=== PATIENT | female | born 1945 | race Caucasian/White ===

== ENCOUNTER 2016-07-20 15:00 | Inpatient (IN) | payer MEDICARE ==
[2016-07-11 15:26] VITALS: BMI 35.2
[2016-08-03] MEDS ORDERED: ALVIMOPAN 12 MG CAPSULE PO ONE (05:00)
[2016-08-03] MEDS ORDERED: ceFAZolin 2 GM in SODIUM CHLORIDE 0.9% 100 ML IVPB ONE (05:00)
[2016-08-03] MEDS ORDERED: TRANEXAMIC ACID 1,000 MG in SODIUM CHLORIDE 0.9% 100 ML IVPB ONE ×4 (05:00)
[2016-08-03] MEDS ORDERED: ONDANSETRON 4 MG/2 ML VIAL IVP ONE (05:00)
[2016-08-03] MEDS ORDERED: ACETAMINOPHEN TAB 500 MG TAB PO ONE (05:00)
[2016-08-03] MEDS ORDERED: MELOXICAM 7.5 MG TAB PO ONE (05:00)
[2016-08-03] MEDS ORDERED: MIDAZOLAM 2 MG/2 ML VIAL IV PRN (05:33)
[2016-08-03] MEDS ORDERED: LACTATED RINGERS 1,000 ML IV SCH (05:33)
[2016-08-03] MEDS ORDERED: SCOPOLAMINE 1.5MG/72HR PATCH TRANSDERM ONE (05:33)
[2016-08-03] MEDS ORDERED: LIDOCAINE 1% 20 ML VIAL (10MG/ML) FOR IV START INTRADERMA PRN (05:33)
[2016-08-03] MEDS ORDERED: DEXAMETHASONE SOD PHOSPHATE 10 MG/ML 1 ML VIAL IV ONE (05:33)
[2016-08-03] MEDS ORDERED: HYDROmorphone 1 MG/ML 1 ML SYRINGE IVP PRN ×4 (05:33→15:33)
[2016-08-03 13:37] VITALS: RESP 16
[2016-08-03] MEDS: ROPIVACAINE 246.25 MG, EPINEPHrine 0.5 MG, KETOROLAC 30 MG, cloNIDine HCL/PF 80 MCG, WA... MISCELLANE ONE ×10 (14:46→17:08)
[2016-08-03] MEDS ORDERED: NA PHOS,M-B/NA PHOS,DI-BA 133 ML ENEMA RECTAL PRN (15:33)
[2016-08-03] MEDS ORDERED: BISACODYL 10 MG SUPP RECTAL PRN (15:33)
[2016-08-03] MEDS ORDERED: ACETAMINOPHEN TAB 325 MG TAB PO PRN (15:33)
[2016-08-03] MEDS ORDERED: DIAZEPAM 5 MG TAB PO PRN (15:33)
[2016-08-03] MEDS ORDERED: MAGNESIUM HYDROXIDE 2,400 MG/10 ML CUP PO PRN (15:33)
[2016-08-03] MEDS ORDERED: NALOXONE 0.4 MG/ML 1 ML VIAL IV PRN ×4 (15:33→19:35)
[2016-08-03] MEDS ORDERED: hydrOXYzine PAMOATE 25 MG CAP PO PRN (15:33)
[2016-08-03] MEDS ORDERED: ONDANSETRON 4 MG/2 ML VIAL IVP PRN (15:33)
[2016-08-03] MEDS ORDERED: HYDROcodone/APAP 7.5-325MG 1 EACH TAB PO PRN (15:33)
[2016-08-03] MEDS ORDERED: traMADol 50 MG TAB PO PRN (15:33)
[2016-08-03] MEDS ORDERED: TEMAZEPAM 15 MG CAP PO PRN (15:33)
[2016-08-03] MEDS ORDERED: TRANEXAMIC ACID 1,000 MG/10 ML VIAL ONE (15:37)
[2016-08-03] MEDS ORDERED: SODIUM CHLORIDE 0.9% 100 ML BAG ONE (15:37)
[2016-08-03] MEDS ORDERED: PHENYLEPHRINE-0.9% NACL SYG 1 MG/10 ML SYRINGE ONE (15:37)
[2016-08-03] MEDS ORDERED: MIDAZOLAM 2 MG/2 ML VIAL ONE (15:37)
[2016-08-03] MEDS ORDERED: LIDOCAINE 1% INJ 10MG/ML (20 ML MDV) ONE (15:37)
[2016-08-03] MEDS ORDERED: fentaNYL (PF) 50 MCG/ML 2 ML AMP ONE (15:37)
[2016-08-03] MEDS ORDERED: PROPOFOL 10 MG/ML 20 ML VIAL IV ONE (15:37)
[2016-08-03] MEDS ORDERED: ceFAZolin 3,000 MG in SODIUM CHLORIDE 0.9% IRRIGATIO 3,000 ML IRRIGATION ONE (16:20)
[2016-08-03] MEDS ORDERED: LACTATED RINGERS 1,000 ML IV ONE ×2 (16:21)
[2016-08-03] MEDS ORDERED: MORPHINE SULFATE 4 MG/ML SYRINGE IVP PRN ×5 (18:53→19:55)
[2016-08-03] MEDS ORDERED: PROMETHAZINE INJ 6.25 MG in SODIUM CHLORIDE 0.9% 50 ML IVPB PRN (18:53)
[2016-08-03] MEDS ORDERED: NALBUPHINE 10 MG/ML AMPUL IV PRN (18:53)
[2016-08-03] MEDS ORDERED: diphenhydrAMINE 50 MG/ML 1 ML VIAL IVP PRN (18:53)
[2016-08-03] MEDS ORDERED: METOCLOPRAMIDE 5 MG/ML 2 ML VIAL IVP PRN (18:53)
--- NOTE | 2016-08-03 19:07 | XR ---
EXAMINATION TYPE: XR knee limited RT DATE OF EXAM: 08/03/2016 6:48 PM COMPARISON: NONE HISTORY: Postop knee surgery TECHNIQUE: 2 views FINDINGS: There is a right knee prosthesis. Components appear in anatomic position. IMPRESSION: Right knee prosthesis without sign of a complicating process.
[2016-08-03] MEDS: LACTATED RINGERS 1,000 ML IV SCH ×2 (20:11→20:12)
[2016-08-03] MEDS: FOLIC ACID 1 MG TAB PO SCH (20:12)
[2016-08-03] MEDS: SENNOSIDES-DOCUSATE SODIUM 1 EACH TAB PO SCH (20:12)
[2016-08-03] MEDS: ASPIRIN 325 MG TAB PO SCH (20:13)
[2016-08-03] MEDS ORDERED: TOFACITINIB CITRATE 5 MG PO SCH (21:00)
[2016-08-03] MEDS ORDERED: LIFITEGRAST BOTH EYES SCH (21:00)
--- NOTE | 2016-08-03 22:50 | OP ---
DATE OF SERVICE: 08/03/2016 SURGEON: NITIN MCDOWELL MD CUSTOMER SALES ADVISOR: Tony Regalado PA-C PREOPERATIVE DIAGNOSIS: Right knee osteoarthrosis. POSTOPERATIVE DIAGNOSIS: Right knee osteoarthrosis. OPERATION: Right total knee arthroplasty. ANESTHESIA: Spinal with sedation. ESTIMATED BLOOD LOSS: 100 mL Tourniquet time: 50 minutes at 250 mmHg. COMPLICATIONS: None apparent. DRAINS: None. DISPOSITION: Postanesthesia care unit. SPECIMENS REMOVED: OPERATIVE FINDINGS: INDICATIONS: Alejandra is a 71-year-old female with long-standing history of right knee pain. History and physical examination are consistent with advanced right knee osteoarthrosis. She has been through significant nonoperative management up to this point. Further treatment options were discussed and she has decided to go forward with right total knee arthroplasty. The risks of the procedure were discussed with her in detail. These risks include, but are not limited to risk of infection, nerve damage, bleeding, pain, and a small risk of deep vein thrombosis, which could lead to fatal pulmonary embolism. There is also a risk of loosening of the implant, which could require revision operation. Patient understands these risks. All of her questions were answered to her satisfaction. Appropriate informed consent was obtained. DESCRIPTION OF THE PROCEDURE: The patient was identified in the preoperative holding area. Surgical site was marked by both the patient and myself. She was given 2 grams of Ancef IV for prophylactic purposes. She was then transferred to the operative suite where she was placed supine on the operating room table. A spinal anesthetic was then administered and dosed per the anesthesia department without apparent complication. Examination under anesthesia was then performed. Patient had full extension. She had 105 degrees of flexion, and medial collateral ligament, lateral collateral ligament and posterior cruciate ligaments were stable. Tourniquet was then placed high on the right upper thigh, well-padded in preparation for surgery. The patient's right lower extremity was then prepped and draped usual sterile fashion. Standard surgical pause was undertaken to ensure that were operating on the correct site and that appropriate preoperative antibiotics had been given. All staff in the room were in agreement and we proceeded. The outlines of the patella were then marked with a surgical pen. A planned 12 cm vertical incision centered over the patella was marked with a surgical pen. The leg was then exsanguinated with an Esmarch dressing. The knee was then flexed and tourniquet inflated to 250 mmHg. The total tourniquet time for the procedure was 50 minutes. Incision was then made with a 10 blade scalpel. Dissection was carried down sharply to the overlying fascia. Great care was taken to minimize the skin flaps. The knee was then exposed using a standard medial parapatellar approach. Small cuff of quadriceps tendon was left for suturing. She was in a mild amount of valgus preoperatively. Very minimal medial release was then made. This was done just to allow for placement of the retractors. The medial meniscus was then excised as well. The lateral meniscus was also released anteriorly. The leg was then externally rotated. The patella was everted and the knee was flexed. Retractors were then placed to protect the collateral ligaments. I then proceeded to remove the infrapatellar fat pad. This was excised sharply tangentially with the fibers of the patellar tendon. I then proceeded to remove the peripheral osteophytes. This was done with a rongeur. I then proceeded with the distal femoral resection. She did have near full extension. A planned 9 mm resection was done. The femoral canal was then entered in the midline of the femur approximately 10 mm anterior to the origin of the posterior cruciate ligament. Redd was then advanced down the center of the femur and the redd placed intramedullary. Based on preoperative radiographs, the angle between the anatomic and mechanical axis of the femur was approximately 4 to 5 degrees the valgus angle of distal femoral cutting guide was then set at 4 degrees for the right knee. The distal femoral cutting guide was then advanced over the intramedullary redd. This was seated firmly against the femur. I then, as mentioned, planned to take 9 mm off the distal femur. The cutting block was then secured onto the femur with pins. The jig was then removed and the distal femoral cut was made through the slot of the block. The pins were then removed and the distal femoral cutting block was removed. The accuracy of the distal femoral cuts was checked with 2 flat bars. I then proceeded with femoral sizing. The posterior referencing sizing guide was held firmly against the resected distal surface of the femur. Posterior condyles were resting on the posterior plane of the guide. The sizing stylus was then placed onto the anterior femur. The size was measured at a size 60. I then assessed for femoral rotation. The plan was for 3 degrees of external rotation. 3 degrees of external rotation was placed onto the jig. These holes were then marked. I then confirmed the rotation by three separate methods. This was done by using the epicondylar axis as well as Whitesides lines and posterior referencing. It was deemed that the external rotation was proper. I then went forward with placing the femoral cutting block. This was placed over the previously placed pin holes. The angle wing was placed onto the anterior slots to make sure that we would not notch the anterior femur with the anterior femoral cut. I then proceed with the anterior femoral cut. This was flushed with the anterior cortex of the femur. Posterior cuts were then made, followed by the anterior chamfer cut and the posterior chamfer cut. The cutting block was them removed. Throughout the resection, the collateral ligaments were protected with retractors. I then placed a trial size 60 femur, fit very nice. Medial and lateral. Fit flush with the distal end of the femur. Drill holes were then made. I then proceed with the tibial cut. I planned for cruciate retaining knee. The guide was placed and set for varus valgus and for slope. The height was set for approximately 2 mm resection from the medial tibial plateau which was the lower side. I was happy with the alignment and the amount of resection. The cutting block was then pinned to the proximal tibia. The alignment redd was removed and the proximal tibia was resected with reciprocating saw. Again this was done with retractors protecting the collateral ligaments as well as posterior cruciate ligaments. I then proceeded to evaluate the flexion and extension gaps. A 10 mm block was placed. Flexion and extension gaps were equal. I the proceed with resection of the posterior osteophytes. She has very extensive posterior osteophytes. This was done using a curved osteotome. This resected the posterior osteophytes and posterior capsule stripping was also done off the posterior aspect of the femur. The osteophytes were then removed. I then proceeded with resection of the patella. The thickness of the patella was measured using the caliper. Thickness was 22 mm. The thickness of the anticipated patellar dome was taken into account. Resection was then performed and confirmed to be equal in 4 quadrants using the caliper. Approximately 14 mm of bone remained after the resection. A 28 x 8 standard patellar trial was then placed. The holes were then drilled and the trial then placed. I then proceeded with sizing the tibial plate. A size 63 tibial plate fit very nicely. I then placed a trial femur, tibial tray and patellar button. A 10 mm trial tibial insert was also placed. The components fit very nicely. She had full extension and flexion. Extension and flexion gaps were equal and stable to varus and valgus stress. The patella tracked appropriately. Tibial tray rotation was marked with a Bovie. This was externally rotated properly. I then proceeded with tibial preparation. I first drilled femoral holes and removed femoral component. The tibial tray was then set for proper external rotation as well as mediolateral placement onto the tibia. It was then pinned into place. I then proceeded with punching the keel. I then decided to proceed with cementing of all of our components. The knee was thoroughly irrigated with sterile saline solution via pulse lavage. The lateral geniculate artery was identified and cauterized. All blood was removed from the bone of the tibia, femur and patella with pulse lavage. I then proceeded with cementing it. 2 packs of antibiotic bone cement were prepared on the back table by the surgical instrument maker. I then proceeded with cementing of the tibia first. The cement was impacted into the keel as well as deeply seated into the bone. A second coat of cement was then placed. The tibia was then impacted into place. Excess cement was removed with Emmett's and jokers. I then proceeded with cementing of the femoral component. The femoral component was also cemented using standard technique. Excess cement was removed. A 10 mm trial insert was then placed into the knee. It was brought into full extension with a constant axial load placed until the cement had hardened. The patellar component was then cemented. This was held firmly with a compressive device until the cement had dried. When the cement had dried, the knee was taken out of extension. All excess cement was removed from around the prosthesis. I then trialed the knee with a 10 mm insert. Flexion-extension gaps felt very good. The knee was stable. It came into full extension. I decided to go forward with a 10 mm cross-linked cruciate-retaining tibial insert. Polyethylene was then placed onto the tibial tray and the pin locked. The knee was then reduced. The knee was again further irrigated with sterile saline solution with antibiotic added. The tourniquet was then deflated. Total tourniquet time for the procedure was 50 minutes at 250 mmHg. Final components were a Biomet Vanguard size 60 cruciate-retaining femoral component, a size 63 tibial tray, a 10 mm cruciate retaining polyethylene insert and a 28 x 8 mm patella. I then proceeded with closure. Again, the knee was thoroughly irrigated. The quadriceps tendon and the medial retinaculum were reapproximated with #2 Ethibond suture. The extensor mechanism was then closed with running #2 Quill suture. Subcutaneous tissues were then closed with 2-0 Vicryl interrupted suture. Skin was closed with a running 3-0 Quill suture. Dermabond was applied to the incision. Sterile compressive dressings were then applied. All sponge and needle counts were deemed correct prior to closure. The patient tolerated the procedure without apparent complication. She was transferred to recovery room in stable condition.
[2016-08-03] MEDS: ceFAZolin 2 GM in SODIUM CHLORIDE 0.9% 100 ML IVPB SCH (23:16)
[2016-08-04 07:49] LABS: Aty Lym Flag Moderate; CHCM 30.5; HDW 2.41; HGB 15.2 gm/dL (11.4-16.0); Hypochromasia Slight; MCH 32.1 pg (25.0-35.0); MCHC 30.5 g/dL (31.0-37.0); MCV 105.3 fL (80.0-100.0); Macrocytosis Moderate; Mean Platelet Volume 8.7; RBC 4.75 m/uL (3.80-5.40); RDW 15.3 % (11.5-15.5); WBC 9.8 k/uL (3.8-10.6); WBC (Perox) 9.46
[2016-08-04] MEDS: ceFAZolin 2 GM in SODIUM CHLORIDE 0.9% 100 ML IVPB SCH (08:13)
[2016-08-04] MEDS: PARoxetine 10 MG TAB PO SCH (08:14)
[2016-08-04] MEDS: ASPIRIN 325 MG TAB PO SCH ×2 (08:14→20:48)
[2016-08-04] MEDS ORDERED: amLODIPine 5 MG TAB PO SCH (09:00)
[2016-08-04] MEDS ORDERED: LOSARTAN 50 MG TAB PO SCH (09:00)
[2016-08-04 10:03] LABS: Add Differential Manual Differential
[2016-08-04 10:05] LABS: Manual Review Performed; Nucleated Red Blood Cells 0 /100 WBC (0-0); Total Cells Counted 100
--- NOTE | 2016-08-04 10:25 | P.PN ---
Progress Note - Text Date:08/04 Time:655 Patient is status post tkr. Patient seen this morning with VAS score of 0. c/o of pruritus, no c/o nausea/vomiting, comfortable and doing well.
[2016-08-04] MEDS: HYDROcodone/APAP 7.5-325MG 1 EACH TAB PO PRN ×2 (10:35→20:48)
[2016-08-04] MEDS ORDERED: METHOTREXATE SODIUM 2.5 MG TAB PO SCH (12:00)
[2016-08-04] MEDS: MULTIVITAMINS, THERA 1 EACH TAB PO SCH (12:23)
[2016-08-04] MEDS: FOLIC ACID 1 MG TAB PO SCH ×2 (12:24→16:54)
[2016-08-04] MEDS ORDERED: SODIUM CHLORIDE 0.9% 1,000 ML IV ONE (16:29)
--- NOTE | 2016-08-04 16:54 | CONS ---
REASON FOR CONSULTATION: Recommendations regarding antihypertensive medications and hypotension postoperatively. Patient is a very pleasant 71-year-old female who underwent right knee arthroplasty. Patient is clinically doing well. Denied any fever or chills. Patient denied any nausea, vomiting. Patient's blood pressure was minimally on the low-normal side, which is improving at this point of time. Patient denied any fever, chills. Patient denied any cough, runny nose, dysuria, abdominal pain. REVIEW OF SYSTEMS: CARDIOVASCULAR: No chest pain, no orthopnea, no PND, no palpitations. PULMONARY: Denied any shortness of breath. No cough or hemoptysis. GASTROINTESTINAL: No diarrhea, nausea or vomiting. No abdominal pain. Normoactive bowel sounds. NEUROLOGIC: No headaches, no weakness, no numbness. MUSCULOSKELETAL: Defer to orthopedic surgery. Patient's pain is well controlled at this point of time. All other systems were reviewed and were negative. PHYSICAL EXAMINATION: GENERAL: The patient is alert and oriented x3, not in any acute distress. Well developed, well nourished. HEENT: Pupils are round and equally reacting to light. EOMI. No scleral icterus. No conjunctival pallor. Normocephalic, atraumatic. No pharyngeal erythema. No thyromegaly. CARDIOVASCULAR: S1 and S2 present. No murmurs, rubs, or gallops. PULMONARY: Chest is clear to auscultation, no wheezing or crackles. ABDOMEN: Soft, nontender, nondistended, normoactive bowel sounds. No palpable organomegaly. MUSCULOSKELETAL: Defer to orthopedic surgery. EXTREMITIES: No cyanosis, clubbing, or pedal edema. NEUROLOGICAL: Gross neurological examination did not reveal any focal deficits. SKIN: No rashes. LABORATORY DATA: CBC was reviewed, has elevated hematocrit. SOCIAL HISTORY AND PAST MEDICAL HISTORY: significant for hypertension, osteoarthritis, rheumatoid arthritis, hypothyroidism, bariatric surgery in the past, breast cancer surgery, cholecystectomy, hernia repair, joint replacement surgery, tonsillectomy, tubal ligation surgery, gastric bypass surgery in the past. Patient used to smoke 1 pack per day, quit smoking in 1983. FAMILY HISTORY: Significant for cancer. ASSESSMENT AND PLAN: 1. Hypertension. The patient is actually hypotensive in the perioperative period. I will hold off antihypertensive medications. 2. Right knee arthroplasty. Pain management and deep venous thrombosis prophylaxis per Primary Service. 3. Depression. Continue with continue with paroxetine. 4. Patient has rheumatoid arthritis for which patient is on methotrexate, which can be continued. 5. Elevated hematocrit, probably due to intravascular volume depletion. Patient will be started on IV fluids, which will also help her with her blood pressure. I will start her on gentle hydration of 150 mL of normal saline. Thank you for letting me participate in this patient's care. Patient's primary care physician is Dr. Juan Cox. [facility]ITALIn[facility]
--- NOTE | 2016-08-04 17:46 | P.PN ---
Subjective Principal diagnosis: OA Right Knee Patient seen at bedside today. She is post op day #1 from total knee arthroplasty per Dr. Siddiqui. She has no new complaints. She has post op pain as expected at the surgical site. She denies numbness, tingling or calf pain. ROS is negative for fever, chills, chest pain, SOB or other. Objective - Vital Signs Vital signs: Vital Signs Temp 97.8 F 08/04/16 15:35 Pulse 67 08/04/16 15:59 Resp 16 08/04/16 15:53 BP 74/67 08/04/16 15:59 Pulse Ox 95 08/04/16 15:53 Intake & Output 08/03/16 08/04/16 08/04/16 18:59 06:59 18:59 Intake Total 1901 1590 Output Total 350 500 800 Balance 1551 1090 -800 Weight 81.647 kg Intake: IV 1901 1000 Lactated Ringers 1,000 ml 1000 @ 100 mls/hr IV .Q10H RUPERT Rx#:[id number] Oral 590 Output: Urine 250 500 800 Uretheral (Yee) 500 600 Estimated Blood Loss 100 Other: Voiding Method Indwelling Catheter Indwelling Catheter # Voids 2 - Exam Inspection of right lower extremity reveals a benign surgical wound. There is no active bleeding, drainage, or dehiscence. Neuro status intact with motor and sensation throughout the lower extremity. Calf is soft and nontender. 2+ pulses and less than 2 sec cap refill present. - Constitutional General appearance: Present: no acute distress - Psychiatric Psychiatric: Present: A&O x's 3, appropriate affect, intact judgment & insight - Labs CBC & Chem 7: 08/04/16 07:11 Labs: Abnormal Lab Results - Last 24 Hours (Table) 08/04/16 Range/Units 07:11 Hct 50.0 H (34.0-46.0) % MCV 105.3 H (80.0-100.0) fL MCHC 30.5 L (31.0-37.0) g/dL Plt Count 143 L (150-450) k/uL Assessment and Plan (1) Osteoarthritis of right knee Narrative/Plan: She will continue with routine postop orthopedic protocol including wound care, PT, pain management, DVT prophylaxis, and medical management. Expect discharge to home with home health in next 1-2 days. Status: Acute Time with Patient: Less than 30
[2016-08-04] MEDS: SENNOSIDES-DOCUSATE SODIUM 1 EACH TAB PO SCH (20:49)
[2016-08-04] MEDS: LACTATED RINGERS 1,000 ML IV SCH ×3 (20:51→21:27)
[2016-08-05] MEDS: LACTATED RINGERS 1,000 ML IV SCH ×2 (00:51→01:04)
[2016-08-05] MEDS: HYDROcodone/APAP 7.5-325MG 1 EACH TAB PO PRN ×3 (01:44→13:39)
[2016-08-05] MEDS: MULTIVITAMINS, THERA 1 EACH TAB PO SCH (07:18)
[2016-08-05] MEDS: PARoxetine 10 MG TAB PO SCH (07:18)
[2016-08-05] MEDS: FOLIC ACID 1 MG TAB PO SCH (07:18)
[2016-08-05] MEDS: ASPIRIN 325 MG TAB PO SCH (07:18)
[2016-08-05] MEDS ORDERED: OXYBUTYNIN XL 5 MG TAB.ER.24 PO SCH (09:00)
--- NOTE | 2016-08-05 09:25 | P.DS ---
Providers Date of admission: 08/03/16 12:28 Expected date of discharge: 08/05/16 Attending physician: Chacorta Siddiqui Consults: 08/03/16 15:33 Consult Physician Routine Consulting Provider: Rosanna Hamilton Consult Reason/Comments: post op medical management Do you want consulting provider notified?: Yes Primary care physician: Puja Cox - Discharge Diagnosis(es) (1) Osteoarthritis of right knee Patient was admitted to the OR on 08/03/2016 to undergo right total knee arthroplasty per Dr. Siddiqui. She had failed conservative measures as an outpatient and desired proceed after giving informed consent. She underwent the above procedure which she tolerated well without complication. Her postoperative hospital course has remained without complication. On day of discharge she is afebrile, vital signs stable, labs within acceptable ranges, wound is benign, neurovascular status is intact, abdomen soft nontender, calf is soft and nontender, denies any new complaints, tolerating by mouth meds and diet. Review of systems is negative for fever, chills, chest pain, shortness of breath, nausea, vomiting, numbness, tingling, abdominal pain, calf pain, headaches, rashes, bleeding, slurred speech or other. Current Visit: Yes Status: Acute Priority: Medium Procedures: Right total knee arthroplasty Patient Condition at Discharge: Good Plan - Discharge Summary New Discharge Prescriptions: Aspirin 325 mg PO BID #60 tab Docusate [Colace] 100 mg PO BID #60 capsule HYDROcodone/APAP 7.5-325MG [[place] 7.5-325] 1 - 2 each PO Q6HR PRN #90 tab PRN Reason: Pain Discharge Medication List Folic Acid 1 mg PO BID 11/18/14 [History] Losartan Potassium 100 mg PO QAM 11/18/14 [History] Methotrexate Sodium [Methotrexate] 20 mg PO FR 11/18/14 [History] PARoxetine HCL [Paxil] 10 mg PO DAILY 11/18/14 [History] Tofacitinib Citrate [Xeljanz] 5 mg PO BID 11/18/14 [History] Tolterodine ER [Detrol LA] 4 mg PO DAILY 11/18/14 [History] Lifitegrast [Xiidra] 1 dropper BOTH EYES BID 07/11/16 [History] [place]-3 Fatty Acids/Fish Oil [Fish Oil 1,000 mg Softgel] 1,000 mg PO DAILY 07/11 [History] amLODIPine [Norvasc] 5 mg PO DAILY 07/11/16 [History] traMADol HCL [Ultram] 50 mg PO Q6HR PRN 07/11/16 [History] Aspirin 325 mg PO BID #60 tab 08/05/16 [Rx] Docusate [Colace] 100 mg PO BID #60 capsule 08/05/16 [Rx] HYDROcodone/APAP 7.5-325MG [[place] 7.5-325] 1 - 2 each PO Q6HR PRN #90 tab [Rx] Follow up Appointment(s)/Referral(s): [facility], [NON-STAFF] - 1 Week Chacorta Siddiqui MD [STAFF PHYSICIAN] - 10 Days Activity/Diet/Wound Care/Special Instructions: Keep wound clean and dry Weight-bear as tolerated Follow up with Dr. Siddiqui in office, [phone] Take meds as directed Discharge Disposition: HOME WITH HOME HEALTH SERVICES
[2016-08-05 10:13] VITALS: BP 101/69; PULSE 64; TEMP 98.5
--- NOTE | 2016-08-05 14:59 | PN ---
The patient is admitted for right knee arthroplasty. Patient is being discharged today. Patient became hypotensive with blood pressure going down to as low as 70 and patient received boluses of IV fluids yesterday evening. Patient is on a couple antihypertensives, amlodipine and an ALESIA inhibitor. I recommend to hold these antihypertensives. I asked her to check the blood pressure at home, take it through Dr. Cox and decision regarding re-initiation of these medications can be made at the time. I counseled her regarding appropriate way blood pressure measurement. Patient's blood pressure today is 101/69. These medications were held yesterday. The patient is otherwise clinically doing well and patient is okay to be discharged from my perspective. Patient has a systolic murmur about, at least 3/6 severity, will need an echocardiogram as an outpatient. REVIEW OF SYSTEMS: CARDIOVASCULAR: No chest pain, no orthopnea, no PND, no palpitations. PULMONARY: Denied any shortness of breath. No cough or hemoptysis. GASTROINTESTINAL: No diarrhea, nausea or vomiting. No abdominal pain. Normoactive bowel sounds. NEUROLOGIC: No headaches, no weakness, no numbness. Medications were reviewed. PHYSICAL EXAMINATION: VITAL SIGNS: Temperature is 98.5, pulse of 64, respiratory rate of 16, blood pressure of 101/69, saturating at 96% on room air. GENERAL: The patient is alert and oriented x3, not in any acute distress. Well developed, well nourished. HEENT: Pupils are round and equally reacting to light. EOMI. No scleral icterus. No conjunctival pallor. Normocephalic, atraumatic. No pharyngeal erythema. No thyromegaly. CARDIOVASCULAR: S1 and S2 present. No murmurs, rubs, or gallops. PULMONARY: Chest is clear to auscultation, no wheezing or crackles. ABDOMEN: Soft, nontender, nondistended, normoactive bowel sounds. No palpable organomegaly. MUSCULOSKELETAL: No joint swelling or deformity. EXTREMITIES: No cyanosis, clubbing, or pedal edema. NEUROLOGICAL: Gross neurological examination did not reveal any focal deficits. SKIN: No rashes. ASSESSMENT AND PLAN: 1. Hypertension management, as mentioned above. 2. Right knee arthroplasty. Deep venous thrombosis prophylaxis and pain management as per primary service. 3. Depression. 4. Rheumatoid arthritis. PLAN: As mentioned in the interval history.
--- NOTE | 2016-10-05 15:17 | PN ---
ADDENDUM: DATE OF SERVICE: 08/05/2016 Patient was hypotensive, which is an expected outcome post surgery. This is not a complication of surgery. Once again, hypotension is an expected outcome post surgery and not a complication of the surgery.
--- NOTE | 2016-10-05 15:21 | CONS ---
ADDENDUM: DATE OF CONSULTATION: 08/04/2016 Patient was hypotensive, which is an expected outcome post surgery. This is not a complication of surgery. Once again, hypotension is an expected outcome post surgery and not a complication of the surgery.
== END 2016-08-05 13:50 | disposition home health service (06) | DRG 470 ==
LOC: 2ORMAIN 08-03 12:28 → 3SUR 08-03 18:13
PROVIDERS: ADMIT Orthopaedic Surgery Sports Medicine; ATTEND Orthopaedic Surgery Sports Medicine
PROC: 0SRC0J9 Replacement of Right Knee Joint with Synthetic Substitute, Cemented, Open Approach (ICD-10-PCS; principal; 2016-08-03 16:30)
DX: M17.11 Unilateral primary osteoarthritis, right knee (principal); I95.89 Other hypotension; E86.9 Volume depletion, unspecified; M06.9 Rheumatoid arthritis, unspecified; I10 Essential (primary) hypertension; F32.9 Major depressive disorder, single episode, unspecified; Z98.84 Bariatric surgery status; Z79.899 Other long term (current) drug therapy; Z87.891 Personal history of nicotine dependence
CPT/HCPCS: 85025

== ENCOUNTER → 2016-10-11 | Outpatient (CLI) | payer MEDICARE ==
--- NOTE | 2016-10-11 17:20 | BD ---
EXAMINATION TYPE: MG DEXA axial skeleton. DATE OF EXAM: 10/11/2016 11:02 AM COMPARISON: NONE CLINICAL HISTORY: 71-year-old female screening for osteoporosis Height: 4 FT 11 1/2 IN Weight: 182 FRAX RISK QUESTIONS: Alcohol (3 or more units per day): NO Family History (Parent hip fracture): NO Glucocorticoids (More than 3mos): YES (Ex: prednisone, prednisolone, methylprednisolone, dexamethasone, and hydrocortisone). History of Fracture in Adulthood: YES Secondary Osteoporosis: 1. Type 1 Diabetes: NO 2. Hyperthyroidism: NO 3. Menopause before 45: NO 4. Malnutrition: NO 5. Chronic liver disease: NO Rheumatoid Arthritis: YES Current Tobacco Use: NO RISK FACTORS HISTORY OF: History of Wrist Fracture: LT WRIST When: AGE 67 Family History of Osteoporosis: YES Active: YES Postmenopausal woman: AGE 49 Lost more than 2 inches in height since high school: YES MEDICATIONS: Additional Medications: METHOTREXATE, FOLIC ACID, ANTI DEPRESSANT, LOSARTIN, DETROL, ZELJANZ Additional History: EXAM MEASUREMENTS: Bone mineral densitometry was performed using the [employer] System. Bone mineral density as measured about the Lumbar spine is: ----- L1-L4(G/cm2): 1.109 T Score Values are as follows: ----- L2: -0.9 ----- L3: 0.3 ----- L4: 0.5 ----- L1-L4: -0.6 Bone mineral density has: Increased 23.3% since study of: 2003 Bone mineral density about the R hip (g/cm2): 0.606 Bone mineral density about the L hip (g/cm2): 0.659 T Score values are as follows: -----R Neck: -3.1 -----L Neck: -2.7 -----R Total: -3.0 -----L Total: -2.5 Bone mineral density has: Decreased -17.7% since study of: 2003 IMPRESSION: Osteoporosis as indicated by T score values in both hips. There is increased fracture risk and therapy is usually indicated based on age. Re-Screen 1-2 years. NOTE: T-SCORE=SD OF THE YOUNG ADULT MEAN.
== END | disposition home or self-care (01) ==
LOC: RADBDWWP 10:35
PROVIDERS: ATTEND Internal Medicine Rheumatology
DX: Z13.820 Encounter for screening for osteoporosis (principal); M81.0 Age-related osteoporosis without current pathological fracture
CPT/HCPCS: 77080

== ENCOUNTER → 2016-11-14 | Outpatient (CLI) | payer MEDICARE ==
[2016-11-14 11:21] VITALS: BMI 37.1
== END ==
LOC: MNTWWP 10:57
PROVIDERS: ATTEND Family Medicine
DX: E66.09 Other obesity due to excess calories (principal)
CPT/HCPCS: 97802

== ENCOUNTER → 2017-03-01 | Outpatient (CLI) | payer MEDICARE ==
--- NOTE | 2017-03-01 15:28 | US ---
EXAMINATION TYPE: US thyroid st tissue head/neck DATE OF EXAM: 03/01/2017 COMPARISON: NONE CLINICAL HISTORY: R22.1 Palpable mass Left side of neck. Patient states she has had an area of swelli ng near her left neck/clavicle "for years" No abnormality visualized on this exam. No suspicious sonographic abnormality. No solid or cystic mas s. Vasculature appears unremarkable. IMPRESSION: Unremarkable localized neck ultrasound. No sonographic finding to correspond to the ronak ent's palpable abnormality.
== END | disposition home or self-care (01) ==
LOC: RADUSWWP 14:43
PROVIDERS: ATTEND Family Medicine
DX: R22.1 Localized swelling, mass and lump, neck (principal)
CPT/HCPCS: 76536

== ENCOUNTER → 2017-03-12 | Outpatient (CLI) | payer MEDICARE ==
[2017-03-12 11:16] LABS: Non-African American GFR(MDRD) >60 (>60 ml/min/1.73 sqM)
--- NOTE | 2017-03-12 12:43 | MR ---
EXAMINATION TYPE: MR brain wo/w con DATE OF EXAM: 03/12/2017 COMPARISON: NONE HISTORY: Unsteadiness on feet per order and patient. TECHNIQUE: Multiplanar, multisequence images of the brain and brainstem is performed without and with IV contras t, utilizing 8 mL intravenous Gadavist . FINDINGS: Diffusion weighted images demonstrate no evidence of a recent infarct or other diffusion ab normality. There is no worrisome extra-axial fluid collection. There is mild ventricular and sulcal prominence consistent with mild age-related cerebral atrophy. There are more prominent areas of T2 hy perintensity in the deep and periventricular white matter. Lesions are nonspecific in appearance and distribution but most likely on basis of product of chronic small vessel ischemic change in patient o f this age. Midline structures demonstrate normal morphology. The craniocervical junction appears within normal limits. Post contrast images demonstrate no abnormal enhancement. The dural venous sinuses appear pa tent. There is mild mucosal thickening involving inferior maxillary and bilateral anterior ethmoid si nuses otherwise paranasal sinuses are clear. The globes are intact bilaterally. IMPRESSION: 1. No evidence of a recent infarct. 2. There is background mild diffuse cerebral atrophy and fairly moderate chronic small vessel ischemi c change. 3. Mild chronic paranasal sinus disease as detailed above.
== END | disposition home or self-care (01) ==
LOC: RADMRIMAIN 10:27
PROVIDERS: ATTEND Family Medicine
DX: G31.9 Degenerative disease of nervous system, unspecified (principal); I67.82 Cerebral ischemia; I10 Essential (primary) hypertension
CPT/HCPCS: 82565; 70553; 36415; A9581

== ENCOUNTER 2017-05-29 09:31 | Day surgery (SDC) | payer MEDICARE, OTHER ==
[2017-05-25 09:58] VITALS: BMI 35.2
[~2017-05-29 09:31] MED LIST: LACTATED RINGERS 1,000 ML IV SCH
[2017-05-29] MEDS: CYCLOPENTOLATE 1% OPHTH SOLN 2 ML BTL OP ONE ×3 (11:15→11:30)
[2017-05-29] MEDS: KETOROLAC 0.5% OPHTH DROPS 5 ML BTL OP ONE ×3 (11:18→11:32)
[2017-05-29 11:21] VITALS: TEMP 98.6
[2017-05-29] MEDS: PHENYLEPHRINE 10% OPHTH DROPS 5 ML BTL OP ONE ×3 (11:21→11:34)
[2017-05-29] MEDS ORDERED: LIDOCAINE 1% 20 ML VIAL (10MG/ML) FOR IV START INTRADERMA ONE (11:21)
[2017-05-29] MEDS ORDERED: PROPOFOL 10 MG/ML 20 ML VIAL IV ONE (11:56)
[2017-05-29] MEDS ORDERED: EPINEPHrine (PF) 0.5 ML in BALANCED SALT IRRIG SOLN COMB2 500 ML IRRIGATION ONE (12:02)
[2017-05-29] MEDS ORDERED: HYALURONATE SODIUM INTRAOCULAR 1 EACH SYRINGE (10MG/ML) INTRAOCULA ONE (12:03)
[2017-05-29] MEDS ORDERED: BALANCED SALT IRRIG SOLN COMB2 15 ML IRRIG.SOLN IRRIGATION ONE (12:03)
--- NOTE | 2017-05-29 12:25 | P.OP ---
Date of Procedure: 05/29/17 Procedure(s) Performed: PREOPERATIVE DIAGNOSIS: Cataract, left eye. POSTOPERATIVE DIAGNOSIS: Cataract, left eye. OPERATION: Phacoemulsification cataract, left eye. DESCRIPTION OF PROCEDURE: The patient was taken to the preoperative holding area. Intravenous Propofol was given so as to bring about adequate sedation. The following mixture was given for local anesthesia: 5 mL of 2% lidocaine, 5 mL of 0.75% Marcaine, and 1 mL of Wydase. Approximately 4 mL was injected in the retrobulbar space of the surgical eye. Additional 1 mL was then directed to the temporal area of the surgical eye. This was performed to allow adequate neurological block of the facial muscles. The patient was revived and then taken into the operative room. The patient was prepped and draped in the usual sterile manner for the operative eye. A lid speculum was put into position. The conjunctiva was resected back from the limbus in the 12 o'clock position. Bleeding was controlled with electrocautery. A #69 blade was then used and a half-thickness scleral incision approximately 1-mm posterior to the limbus was made on bare sclera. This was shelved in the clear cornea using a crescent knife. Next a 15-degree blade was used to make a stab incision at the 3 o' clock position at the corneolimbal interface. The steep axis of astigmatism was marked using a pre-inked corneal marking device. A Keratome blade was then used and the superior wound was extended into the anterior chamber. Viscoelastic was injected into the anterior chamber and to maintain its form. Next, a cystotome was used and a continuous anterior capsulotomy was made without difficulty. Hydrodissection using a blunt cannula and BSS was performed. Phaco probe was then employed and a groove extending from 12 to 6 o' clock in the lens was created. A Preston wand was used through the stab incision so as to perform a divide and conquer technique. Next an irrigation aspiration probe was utilized and any residual cortex was removed from the eye. Again, viscoelastic was injected into the anterior chamber. An Juanpablo toric posterior chamber lens implant was placed in the cartridge and injected into the anterior chamber without difficulty. The Sinskey hook was utilized to spin the lens into position and this was again performed without any difficulty. The irrigation and aspiration probe was again employed and any residual viscoelastic was removed from the eye. Then BSS was injected into the limbal stab incision and the anterior chamber re-inflated. The conjunctiva was reapproximated using electrocautery. One drop of 0.25% Timoptic was placed over the corneal along with TobraDex ophthalmic ointment. Two sterile patches and a Rosas eye shield were taped into position. The patient was transported to the recovery room in stable condition. Condition: stable Disposition: same day
[2017-05-29 12:43] VITALS: BP 142/61; PULSE 67; RESP 16
[2017-05-29] MEDS ORDERED: GENTAMICIN/PREDNISOL AC OPHTH OINT 3.5GM OPHTHALMIC ONE (23:00)
[2017-05-29] MEDS ORDERED: TIMOLOL 0.5% OPHTH SOLN (PF) 0.2 ML DROPERETTE OP ONE (23:00)
[2017-05-29] MEDS ORDERED: BUPIVACAINE (PF) 0.75% 5 ML, LIDOCAINE 4% (PF) 5 ML, HYALURONIDASE, HUMAN RECOMB 150 UNIT MISCELLANE ONE ×3 (23:00)
== END 2017-05-29 13:00 | disposition home or self-care (01) ==
LOC: OR 09:31
PROVIDERS: ATTEND Ophthalmology
DX: H26.9 Unspecified cataract (principal); I10 Essential (primary) hypertension; M06.9 Rheumatoid arthritis, unspecified; F32.9 Major depressive disorder, single episode, unspecified; M35.00 Sjogren syndrome, unspecified; Z79.891 Long term (current) use of opiate analgesic; Z79.899 Other long term (current) drug therapy; Z87.891 Personal history of nicotine dependence; Z96.651 Presence of right artificial knee joint; Z96.1 Presence of intraocular lens
CPT/HCPCS: 66984; V2787; C1780; J2001; J3470; J0171; J2704

== ENCOUNTER 2017-09-01 12:15 | Inpatient (IN) | payer MEDICARE ==
[2017-09-01] MEDS ORDERED: NITROGLYCERIN OINT 1 INCH/GM PACKET TOPICAL STA (12:23)
[2017-09-01] MEDS ORDERED: ASPIRIN 81 MG PO STA (12:23)
--- NOTE | 2017-09-01 12:26 | ED ---
General Adult HPI - General Chief complaint: Chest Pain Stated complaint: Chest pain Time Seen by Provider: 09/01/17 12:15 Source: patient, EMS, RN notes reviewed Mode of arrival: EMS Limitations: no limitations - History of Present Illness Initial comments: This is a 72-year-old female who presents emergency Department complaining of difficulty breathing times one hour. Patient also notes that she had some chest pain when this occurred and some sweating. Patient states this chest pain is now 1 out of 10 in intensity. Patient denies any palpitation. Patient states she doesn't have any underlying breathing problems that she knows of. Patient denies any history of diabetes however she states she has had blood pressure. Patient denies any high cholesterol. Patient denies any recent fever or chills. Patient denies any increased cough. Patient states she has chest pain and it radiates straight to her back. Patient denies abdominal pain patient denies nausea vomiting diarrhea. Patient denies any leg swelling or calf tenderness. - Related Data Home Medications Medication Instructions Recorded Confirmed Folic Acid 1 mg PO QAM 11/18/14 09/01/17 Tofacitinib Citrate [Xeljanz] 11 mg PO QAM 11/18/14 09/01/17 Tolterodine ER [Detrol LA] 4 mg PO DAILY 11/18/14 09/01/17 [place]-3 Fatty Acids/Fish Oil [Fish 1,000 mg PO DAILY 07/11/16 09/01/17 Oil 1,000 mg Softgel] traMADol HCL [Ultram] 50 mg PO DIRECTED PRN 07/11/16 09/01/17 amLODIPine [Norvasc] 5 mg PO DAILY 04/04/17 09/01/17 Losartan [Cozaar] 100 mg PO DAILY 05/25/17 09/01/17 Methotrexate Sodium [Methotrexate] 20 mg PO Q7DAYS 05/25/17 09/01/17 DULoxetine HCL [Cymbalta] 30 mg PO BID 09/01/17 09/01/17 Levothyroxine Sodium [Synthroid] 50 mcg PO DAILY 09/01/17 09/01/17 Allergies Allergy/AdvReac Type Severity Reaction Status Date / Time adhesive tape AdvReac skin peels Uncoded 09/01/17 12:22 Review of Systems ROS Statement: Those systems with pertinent positive or pertinent negative responses have been documented in the HPI. ROS Other: All systems not noted in ROS Statement are negative. Past Medical History Past Medical History: Cancer, Hypertension, Osteoarthritis (OA), Rheumatoid Arthritis (RA), Thyroid Disorder Additional Past Medical History / Comment(s): small cancerous lump removed from breast. Did not need radiation or chemo. History of Any Multi-Drug Resistant Organisms: None Reported Past Surgical History: Bariatric Surgery, Breast Surgery, Cholecystectomy, Hernia Repair, Tonsillectomy, Tubal Ligation Additional Past Surgical History / Comment(s): Left Breast Biopsy. TOTAL LT KNEE, R total knee. Colonoscopies, right cataract removal Past Anesthesia/Blood Transfusion Reactions: No Reported Reaction Past Psychological History: No Psychological Hx Reported Smoking Status: Former smoker Past Alcohol Use History: None Reported Past Drug Use History: None Reported - Past Family History Brother(s) Family Medical History: Cancer Sister(s) Family Medical History: Cancer Additional Family Medical History / Comment(s): Lymphoma General Exam - General Exam Comments Initial Comments: GENERAL: Patient is well-developed and well-nourished. Patient is nontoxic and well- hydrated and is in mild distress. ENT: Neck is soft and supple. No significant lymphadenopathy is noted. Oropharynx is clear. Moist mucous membranes. Neck has full range of motion without eliciting any pain. EYES: The sclera were anicteric and conjunctiva were pink and moist. Extraocular movements were intact and pupils were equal round and reactive to light. Eyelids were unremarkable. PULMONARY: Unlabored respirations. Good breath sounds bilaterally. No audible rales rhonchi or wheezing was noted. CARDIOVASCULAR: There is a regular rate and rhythm without any murmurs gallops or rubs. ABDOMEN: Soft and nontender with normal bowel sounds. No palpable organomegaly was noted. There is no palpable pulsatile mass. SKIN: Skin is clear with no lesions or rashes and otherwise unremarkable. NEUROLOGIC: Patient is alert and oriented x3. Cranial nerves II through XII are grossly intact. Motor and sensory are also intact. Normal speech, volume and content. Symmetrical smile. MUSCULOSKELETAL: Normal extremities with adequate strength and full range of motion. LYMPHATICS: No significant lymphadenopathy is noted PSYCHIATRIC: Normal psychiatric evaluation. Normal interpersonal interactions appears functionally intact in deals appropriately with others. No signs of depression. No signs of anxiety. Limitations: no limitations Course Vital Signs 09/01/17 09/01/17 09/01/17 12:17 12:55 13:09 Temperature 97.3 F L Pulse Rate 100 104 H 100 Respiratory 18 18 18 Rate Blood Pressure 108/63 79/56 85/51 O2 Sat by Pulse 97 95 94 L Oximetry 09/01/17 09/01/17 09/01/17 13:35 13:51 14:23 Temperature Pulse Rate 98 96 Respiratory 16 16 Rate Blood Pressure 81/58 82/60 86/55 O2 Sat by Pulse 93 L 92 L Oximetry 09/01/17 09/01/17 14:48 15:31 Temperature 97.1 F L Pulse Rate 97 92 Respiratory 16 16 Rate Blood Pressure 89/69 86/62 O2 Sat by Pulse 91 L 94 L Oximetry Medical Decision Making - Medical Decision Making EKG shows a normal sinus rhythm at 90 bpm [place] interval 180 QRS is 90 QT interval is 392 QTC is 500. Patient's EKG shows no ST segment elevation and very slight ST segment depression in V4 V5 and V6. Chest x-ray shows no acute abnormality. Patient's blood pressure was slightly low so patient was given a bolus of a couple liters to increased pressure. I spoke with Dr. Corey he agreed to admit the patient I wrote admitting orders and consult cardiology continued heparin and aspirin on the floor - Lab Data Result diagrams: 09/01/17 12:20 09/01/17 12:20 Lab Results 09/01/17 09/01/17 09/01/17 Range/Units 12:20 12:20 12:20 WBC 6.6 (3.8-10.6) k/uL RBC 4.91 (3.80-5.40) m/uL Hgb 15.7 (11.4-16.0) gm/dL Hct 51.2 H (34.0-46.0) % MCV 104.4 H (80.0-100.0) fL MCH 32.1 (25.0-35.0) pg MCHC 30.7 L (31.0-37.0) g/dL RDW 15.5 (11.5-15.5) % Plt Count 145 L (150-450) k/uL Neutrophils % (Manual) 74 % Band Neutrophils % 1 % Lymphocytes % (Manual) 24 % Eosinophils % (Manual) 1 % Neutrophils # (Manual) 4.90 (1.3-7.7) k/uL Lymphocytes # (Manual) 1.58 (1.0-4.8) k/uL Eosinophils # (Manual) 0.07 (0-0.7) k/uL Nucleated RBCs 0 (0-0) /100 WBC Manual Slide Review Performed Reactive Lymphocytes Present Macrocytosis Moderate PT (9.0-12.0) sec INR (<1.2) APTT (22.0-30.0) sec Sodium 139 (137-145) mmol/L Potassium 4.9 (3.5-5.1) mmol/L Chloride 105 (98-107) mmol/L Carbon Dioxide 23 (22-30) mmol/L Anion Gap 11 mmol/L BUN 22 H (7-17) mg/dL Creatinine 1.00 (0.52-1.04) mg/dL Est GFR (CKD-EPI)AfAm 66 (>60 ml/min/1.73 sqM) Est GFR (CKD-EPI)NonAf 57 (>60 ml/min/1.73 sqM) Glucose 139 H (74-99) mg/dL Calcium 9.4 (8.4-10.2) mg/dL Magnesium 2.3 (1.6-2.3) mg/dL Total Bilirubin 2.4 H (0.2-1.3) mg/dL AST 33 (14-36) U/L ALT 25 (9-52) U/L Alkaline Phosphatase 78 (38-126) U/L Total Creatine Kinase 47 (30-135) U/L CK-MB (CK-2) 1.6 (0.0-2.4) ng/mL CK-MB (CK-2) Rel Index 3.4 Troponin I 0.076 H* (0.000-0.034) ng/mL NT-Pro-B Natriuret Pep pg/mL Total Protein 6.8 (6.3-8.2) g/dL Albumin 3.7 (3.5-5.0) g/dL 09/01/17 09/01/17 Range/Units 12:20 12:20 WBC (3.8-10.6) k/uL RBC (3.80-5.40) m/uL Hgb (11.4-16.0) gm/dL Hct (34.0-46.0) % MCV (80.0-100.0) fL MCH (25.0-35.0) pg MCHC (31.0-37.0) g/dL RDW (11.5-15.5) % Plt Count (150-450) k/uL Neutrophils % (Manual) % Band Neutrophils % % Lymphocytes % (Manual) % Eosinophils % (Manual) % Neutrophils # (Manual) (1.3-7.7) k/uL Lymphocytes # (Manual) (1.0-4.8) k/uL Eosinophils # (Manual) (0-0.7) k/uL Nucleated RBCs (0-0) /100 WBC Manual Slide Review Reactive Lymphocytes Macrocytosis PT 10.3 (9.0-12.0) sec INR 1.1 (<1.2) APTT 23.3 (22.0-30.0) sec Sodium (137-145) mmol/L Potassium (3.5-5.1) mmol/L Chloride (98-107) mmol/L Carbon Dioxide (22-30) mmol/L Anion Gap mmol/L BUN (7-17) mg/dL Creatinine (0.52-1.04) mg/dL Est GFR (CKD-EPI)AfAm (>60 ml/min/1.73 sqM) Est GFR (CKD-EPI)NonAf (>60 ml/min/1.73 sqM) Glucose (74-99) mg/dL Calcium (8.4-10.2) mg/dL Magnesium (1.6-2.3) mg/dL Total Bilirubin (0.2-1.3) mg/dL AST (14-36) U/L ALT (9-52) U/L Alkaline Phosphatase (38-126) U/L Total Creatine Kinase (30-135) U/L CK-MB (CK-2) (0.0-2.4) ng/mL CK-MB (CK-2) Rel Index Troponin I (0.000-0.034) ng/mL NT-Pro-B Natriuret Pep 1450 pg/mL Total Protein (6.3-8.2) g/dL Albumin (3.5-5.0) g/dL Critical Care Time Critical Care Time: Yes Total Critical Care Time: 35 Disposition Clinical Impression: Dyspnea, Unstable angina pectoris Disposition: ADMITTED IP TO THIS HOSP Referrals: Puja Cox III, MD [Primary Care Provider] - 1-2 days Time of Disposition: 15:56
[2017-09-01 12:36] LABS: HCT 51.2 % (34.0-46.0); HGB 15.7 gm/dL (11.4-16.0); MCH 32.1 pg (25.0-35.0); MCHC 30.7 g/dL (31.0-37.0); MCV 104.4 fL (80.0-100.0); Macrocytosis Moderate; Mean Platelet Volume 8.2; Platelet Count 145 k/uL (150-450); RBC 4.91 m/uL (3.80-5.40); RDW 15.5 % (11.5-15.5); WBC 6.6 k/uL (3.8-10.6)
[2017-09-01 12:45] LABS: INR 1.1 (<1.2); Partial Thromboplastin Time 23.3 sec (22.0-30.0); Prothrombin Time 10.3 sec (9.0-12.0)
[2017-09-01] MEDS ORDERED: ACETAMINOPHEN TAB 325 MG TAB PO STA (12:58)
[2017-09-01 13:00] LABS: Albumin 3.7 g/dL (3.5-5.0); Calcium 9.4 mg/dL (8.4-10.2); Magnesium 2.3 mg/dL (1.6-2.3); Total Bilirubin 2.4 mg/dL (0.2-1.3); Total Protein 6.8 g/dL (6.3-8.2)
--- NOTE | 2017-09-01 13:01 | XR ---
EXAMINATION TYPE: XR chest 2V DATE OF EXAM: 09/01/2017 HISTORY: Chest Pain. REFERENCE: NONE. FINDINGS: The lungs are clear. There is mild vascular congestion. Heart size is within normal limits. There is mild interstitial change. Pleural spaces are clear. IMPRESSION: I CANNOT EXCLUDE EARLY PULMONARY EDEMA.
[2017-09-01 13:04] LABS: Potassium 4.9 mmol/L (3.5-5.1)
[2017-09-01] MEDS ORDERED: SODIUM CHLORIDE 0.9% 500 ML IV ONE ×4 (13:10→15:43)
[2017-09-01 13:11] LABS: Creatine Kinase MB 1.6 ng/mL (0.0-2.4)
[2017-09-01 13:13] LABS: Troponin I 0.076 ng/mL (0.000-0.034)
[2017-09-01 13:15] LABS: Band Neutrophils % 1 %; Eosinophils # (M) 0.07 k/uL (0-0.7); Lymphocytes # (M) 1.58 k/uL (1.0-4.8); Neutrophils % (M) 74 %; Nucleated Red Blood Cells 0 /100 WBC (0-0); Reactive Lymphocytes Present; Total Cells Counted 100
[2017-09-01] MEDS ORDERED: HEPARIN SODIUM,PORCINE 5,000 UNIT/ML 1 ML VIAL IV ONE (14:22)
[2017-09-01] MEDS ORDERED: HEPARIN SOD,PORK IN 0.45% NACL 25,000 UNIT in 0.45% NACL 1 500ML.BAG IV SCH (14:30)
[2017-09-01] MEDS ORDERED: NITROGLYCERIN SL TABS 0.4 MG TAB SUBLINGUAL PRN (16:03)
[2017-09-01] MEDS ORDERED: traMADol 50 MG TAB PO PRN ×2 (19:30→20:48)
--- NOTE | 2017-09-01 19:44 | P.HPIM ---
History of Present Illness Patient is a very pleasant 72-year-old female came in with compensative shortness of breath with questionable PND denied any orthopnea. Patient was also comparing of pressure-like chest pain on and off up on exertion relieves within a few seconds after taking rest. Patient denied any diaphoresis is worried that patient does have associated shortness of breath and lightheadedness. Patient was comparing of lightheadedness for couple days patient blood pressure is low patient takes amlodipine and an ALESIA inhibitor at home. Patient was given IV Lasix patient is presently on 3 L of oxygen in with the some pulmonary edema on the chest x-ray and. Although I'm not giving her Lasix because of the low blood pressure with systolics in 90s if her restless pretty status worsen, patient will be given Lasix at that time with close monitoring of blood pressure. Review of Systems REVIEW OF SYSTEMS: CONSTITUTIONAL: No fever, no malaise, no fatigue. HEENT: No recent visual problems or hearing problems. Denied any sore throat. CARDIOVASCULAR: No no palpitations, no syncope. PULMONARY: no cough, no hemoptysis. GASTROINTESTINAL: No diarrhea, no nausea, no vomiting, no abdominal pain. Normoactive bowel sounds. NEUROLOGICAL: No headaches, no weakness, no numbness. HEMATOLOGICAL: Denies any bleeding or petechiae. GENITOURINARY: Denies any burning micturition, frequency, or urgency. MUSCULOSKELETAL/RHEUMATOLOGICAL: Denies any joint pain, swelling, or any muscle pain. ENDOCRINE: Denies any polyuria or polydipsia. The rest of the 14-point review of systems is negative. Past Medical History Past Medical History: Cancer, Hypertension, Osteoarthritis (OA), Rheumatoid Arthritis (RA), Thyroid Disorder Additional Past Medical History / Comment(s): small cancerous lump removed from breast. Did not need radiation or chemo. History of Any Multi-Drug Resistant Organisms: None Reported Past Surgical History: Bariatric Surgery, Breast Surgery, Cholecystectomy, Hernia Repair, Tonsillectomy, Tubal Ligation Additional Past Surgical History / Comment(s): Left Breast Biopsy. TOTAL LT KNEE, R total knee. Colonoscopies, right cataract removal Past Anesthesia/Blood Transfusion Reactions: No Reported Reaction Past Psychological History: No Psychological Hx Reported Smoking Status: Former smoker Past Alcohol Use History: None Reported Past Drug Use History: None Reported - Past Family History Brother(s) Family Medical History: Cancer Sister(s) Family Medical History: Cancer Additional Family Medical History / Comment(s): Lymphoma Medications and Allergies Home Medications Medication Instructions Recorded Confirmed Type Folic Acid 1 mg PO QAM 11/18/14 09/01/17 History Tofacitinib Citrate [Xeljanz] 11 mg PO QAM 11/18/14 09/01/17 History Tolterodine ER [Detrol LA] 4 mg PO DAILY 11/18/14 09/01/17 History Angela-3 Fatty Acids/Fish Oil [Fish 1,000 mg PO DAILY 07/11/16 09/01/17 History Oil 1,000 mg Softgel] traMADol HCL [Ultram] 50 mg PO DIRECTED PRN 07/11/16 09/01/17 History amLODIPine [Norvasc] 5 mg PO DAILY 04/04/17 09/01/17 History Losartan [Cozaar] 100 mg PO DAILY 05/25/17 09/01/17 History Methotrexate Sodium [Methotrexate] 20 mg PO Q7DAYS 05/25/17 09/01/17 History DULoxetine HCL [Cymbalta] 30 mg PO BID 09/01/17 09/01/17 History Levothyroxine Sodium [Synthroid] 50 mcg PO DAILY 09/01/17 09/01/17 History Allergies Allergy/AdvReac Type Severity Reaction Status Date / Time adhesive tape AdvReac skin peels Uncoded 09/01/17 12:22 Physical Exam Vitals: Vital Signs Temp Pulse Resp BP Pulse Ox 09/01/17 18:55 97.6 F 100 15 93/59 93 L 09/01/17 18:07 92 20 138/76 96 09/01/17 16:25 93 18 96/66 94 L 09/01/17 16:06 95 16 90/59 94 L 09/01/17 15:31 97.1 F L 92 16 86/62 94 L 09/01/17 14:48 97 16 89/69 91 L 09/01/17 14:23 96 16 86/55 92 L 09/01/17 13:51 98 16 82/60 93 L 09/01/17 13:35 81/58 09/01/17 13:09 100 18 85/51 94 L 09/01/17 12:55 104 H 18 79/56 95 09/01/17 12:17 97.3 F L 100 18 108/63 97 Intake and Output 09/01/17 09/01/17 09/01/17 06:59 14:59 22:59 Other: Weight 79.379 kg PHYSICAL EXAMINATION: GENERAL: The patient is alert and oriented x3, not in any acute distress. Well developed, well nourished. HEENT: Pupils are round and equally reacting to light. EOMI. No scleral icterus. No conjunctival pallor. Normocephalic, atraumatic. No pharyngeal erythema. No thyromegaly. CARDIOVASCULAR: S1 and S2 present. No murmurs, rubs, and has elevated JVD no PULMONARY: Chest is clear to auscultation, no wheezing or crackles. ABDOMEN: Soft, nontender, nondistended, normoactive bowel sounds. No palpable organomegaly. MUSCULOSKELETAL: No joint swelling or deformity. EXTREMITIES: No cyanosis, clubbing, or pedal edema. NEUROLOGICAL: Gross neurological examination did not reveal any focal deficits. SKIN: No rashes. Results CBC & Chem 7: 09/01/17 12:20 09/01/17 12:20 Labs: Abnormal Lab Results - Last 24 Hours (Table) 09/01/17 09/01/17 09/01/17 Range/Units 12:20 12:20 12:20 Hct 51.2 H (34.0-46.0) % MCV 104.4 H (80.0-100.0) fL MCHC 30.7 L (31.0-37.0) g/dL Plt Count 145 L (150-450) k/uL BUN 22 H (7-17) mg/dL Glucose 139 H (74-99) mg/dL Total Bilirubin 2.4 H (0.2-1.3) mg/dL Troponin I 0.076 H* (0.000-0.034) ng/mL Assessment and Plan Plan: -Shortness of breath: Probably due to unstable angina pulmonary edema. Patient is on IV heparin. -Chest pressure like sensation: Probably secondary to non-ST elevation myocardial infarction echocardiac exam will be obtain cardiology was consulted patient may end up needing a cardiac catheterization patient does have chest typical chest pain -Hypertension: Patient is actually hypotensive received IV fluids. -Rheumatoid arthritis: Continue with tramadol and the methotrexate, patient also receives biologic agents for this. -Hypothyroidism: Continue with levothyroxine
[2017-09-01 20:42] LABS: Creatine Kinase MB 4.5 ng/mL (0.0-2.4); Troponin I 0.578 ng/mL (0.000-0.034)
[2017-09-01 21:07] VITALS: BMI 5061.6
[2017-09-01] MEDS: DULoxetine HCL 30 MG CAPSULE.DR PO SCH (21:16)
[2017-09-02 00:23] LABS: Creatine Kinase MB 5.4 ng/mL (0.0-2.4); Troponin I 0.703 ng/mL (0.000-0.034)
[2017-09-02] MEDS: LEVOTHYROXINE 50 MCG TAB PO SCH (06:07)
--- NOTE | 2017-09-02 07:07 | XR ---
EXAMINATION TYPE: XR chest 1V DATE OF EXAM: 09/02/2017 HISTORY: CHF. REFERENCE: Previous study dated 09/01/2017. FINDINGS: The heart is mildly enlarged. Pulmonary vasculature is returned to normal. There is some ai rspace disease in the left midlung which may represent atelectasis or pneumonia. Pleural spaces appea r clear. IMPRESSION: 1. MILD CARDIOMEGALY. 2. AIRSPACE DISEASE IN THE LEFT MIDLUNG, EITHER REPRESENTING ATELECTASIS OR PNEUMONIA.
[2017-09-02 07:11] LABS: Cholesterol 173 mg/dL (<200); HDL Cholesterol 53 mg/dL (40-60); LDL Cholesterol,Calculated 102 mg/dL (0-99); Triglycerides 92 mg/dL (<150)
[2017-09-02] MEDS ORDERED: NON-FORMULARY DRUG (Omega-3 Fatty Acids/Fish Oil [Fish Oil 1,000 Mg Softgel] 1,000 MG) PO SCH (09:00)
[2017-09-02] MEDS ORDERED: ASPIRIN 325 MG TAB PO SCH (09:00)
[2017-09-02] MEDS ORDERED: ALPRAZolam 0.5 MG TAB PO PRN (10:24)
[2017-09-02] MEDS ORDERED: NITROGLYCERIN SL TABS 0.4 MG TAB SUBLINGUAL PRN (10:24)
[2017-09-02] MEDS ORDERED: SODIUM CHLORIDE 0.9% 1,000 ML in EMPTY BAG 1 BAG IV ONE (10:24)
[2017-09-02] MEDS ORDERED: ALPRAZolam 0.25 MG TAB PO PRN (10:24)
[2017-09-02] MEDS ORDERED: ATORVASTATIN 80 MG TAB PO STA (10:24)
[2017-09-02] MEDS ORDERED: ASPIRIN 325 MG TAB PO STA (10:24)
--- NOTE | 2017-09-02 11:07 | CONS ---
CONSULTATION CHIEF COMPLAINT: Chest pain. Alejandra is a 72-year-old lady with history of hypertension and arthritis who presented to hospital with shortness of breath for the last several days and also had intermittent episodes of chest pressure. Her shortness of breath was mild to moderate intensity came on with activity and was relieved with rest. Chest discomfort she describes it as a mild to moderate intensity chest pain came on with exertion and is relieved with rest. Her EKG shows T-wave inversion in the precordial leads suggestive of ischemia and cardiac enzymes are elevated with troponins of 0.07, 0.5 and 0.7. Given her typical symptoms, elevated troponins and EKG changes, I advised her to undergo cardiac catheterization for further evaluation. She had been explained of risks, benefits and alternatives, understood and accepted. PAST MEDICAL HISTORY: Significant for hypothyroidism, hypertension, arthritis. MEDICATIONS: At home included Norvasc 5 daily, Cymbalta 30 b.i.d., losartan 100 mg daily, methotrexate, fish oil, Detrol LA, Ultram and Synthroid and folic acid. ALLERGIES: THE PATIENT IS ALLERGIC TO ADHESIVE TAPE. FAMILY HISTORY: Negative for premature coronary artery disease. SOCIAL HISTORY: Negative for current smoking, EtOH abuse or drug abuse. REVIEW OF SYSTEMS: HEENT is unremarkable. Cardiac as described above. RESPIRATORY: As described above. GI negative. ENT negative. Skin: Negative. Musculoskeletal significant for arthritis. Psychosocial negative. Endocrine negative. Derm negative. Constitutional negative. Oncological negative. Rest of the systems review is not relevant. EXAM: Patient is comfortable at rest. Vital signs is stable. There is no jugular venous distention. Carotid upstroke is normal. There is no bruit. Chest exam reveals good air entry bilaterally. Heart exam reveals first and second heart sounds. No gallop. No murmur. No rub. Abdomen is soft, nontender. Examination of extremities did not reveal any edema. Peripheral pulses are felt. LABS: Show that the troponins are elevated. Potassium is 4.9, creatinine is 1. Hemoglobin is 15.7. ASSESSMENT: 1. Acute non ST-segment elevation myocardial infarction. 2. Hypertension. PLAN: The patient will undergo cardiac catheterization to evaluate her coronary anatomy and streamline her management. She had been explained of risks, benefits and alternatives, understood and accepted. I am going to start her on a small dose of a beta hira and start her on statins. MMODL / IJN: [id number] /
[2017-09-02] MEDS: DULoxetine HCL 30 MG CAPSULE.DR PO SCH ×2 (11:34→20:29)
[2017-09-02] MEDS: FOLIC ACID 1 MG TAB PO SCH (11:34)
[2017-09-02] MEDS: OXYBUTYNIN XL 5 MG TAB.ER.24 PO SCH (11:35)
[2017-09-02] MEDS ORDERED: POLYETHYLENE GLYCOL 3350 17 GM POWD.PACK PO PRN (11:51)
[2017-09-02] MEDS ORDERED: IV FLUID CONTINUATION 250 ML IV ONE (12:55)
--- NOTE | 2017-09-02 12:56 | P.PN ---
Subjective 72-year-old female came in which are as of breath probably related to unstable angina patient is going for cardiac catheterization today. Patient denied any recent chest pain her respiratory status and breathing did improve. Constitutional: Denied any fatigue denied any fever. Cardio vascular: denied any chest pain, palpitations Gastrointestinal denied any nausea vomiting Pulmonary: As mentioned in the interval history Neurologic denied any new focal deficits Objective - Vital Signs Vital signs: Vital Signs Temp 97.4 F L 09/02/17 08:00 Pulse 93 09/02/17 08:00 Resp 20 09/02/17 08:00 BP 101/71 09/02/17 08:00 Pulse Ox 95 09/02/17 08:00 Intake & Output 09/01/17 09/02/17 09/02/17 18:59 06:59 18:59 Intake Total 356.847 Balance 356.847 Weight 81.647 kg 87.5 kg Intake: Intake, IV Titration 176.847 Amount Heparin Sod,Pork in 0.45% 176.847 NaCl 25,000 unit In 0.45 % NaCl 1 500ml.bag @ 12 UNITS/KG/HR 19.05 mls/hr IV .Q24H [facility] Rx#: [id number] Oral 180 Other: Voiding Method Toilet # Voids 1 - Exam PHYSICAL EXAMINATION: GENERAL: The patient is alert and oriented x3, not in any acute distress. Well developed, well nourished. HEENT: Pupils are round and equally reacting to light. EOMI. No scleral icterus. No conjunctival pallor. Normocephalic, atraumatic. No pharyngeal erythema. No thyromegaly. CARDIOVASCULAR: S1 and S2 present. No murmurs, rubs, or gallops. PULMONARY: Chest is clear to auscultation, no wheezing or crackles. ABDOMEN: Soft, nontender, nondistended, normoactive bowel sounds. No palpable organomegaly. MUSCULOSKELETAL: No joint swelling or deformity. EXTREMITIES: No cyanosis, clubbing, or pedal edema. NEUROLOGICAL: Gross neurological examination did not reveal any focal deficits. SKIN: No rashes. - Labs CBC & Chem 7: 09/01/17 12:20 09/01/17 12:20 Labs: Abnormal Lab Results - Last 24 Hours (Table) 09/01/17 09/01/17 09/01/17 Range/Units 12:20 12:20 19:22 APTT (22.0-30.0) sec BUN 22 H (7-17) mg/dL Glucose 139 H (74-99) mg/dL Total Bilirubin 2.4 H (0.2-1.3) mg/dL CK-MB (CK-2) 4.5 H* (0.0-2.4) ng/mL Troponin I 0.076 H* 0.578 H* (0.000-0.034) ng/mL LDL Cholesterol, Calc (0-99) mg/dL 09/01/1718 09/02/17 Range/Units 23:13 23:13 05:55 APTT 81.1 H (22.0-30.0) sec BUN (7-17) mg/dL Glucose (74-99) mg/dL Total Bilirubin (0.2-1.3) mg/dL CK-MB (CK-2) 5.4 H* (0.0-2.4) ng/mL Troponin I 0.703 H* (0.000-0.034) ng/mL LDL Cholesterol, Calc 102 H (0-99) mg/dL 09/02/17 Range/Units 05:55 APTT 60.6 H (22.0-30.0) sec BUN (7-17) mg/dL Glucose (74-99) mg/dL Total Bilirubin (0.2-1.3) mg/dL CK-MB (CK-2) (0.0-2.4) ng/mL Troponin I (0.000-0.034) ng/mL LDL Cholesterol, Calc (0-99) mg/dL Assessment and Plan Plan: -Shortness of breath: Probably due to unstable angina, Patient is on IV heparin. Patient will undergo cardiac catheterization today -Chest pressure like sensation: Probably secondary to non-ST elevation myocardial infarction echocardiac exam will be obtain. Cardiology evaluated the patient -Hypertension: Patient is actually hypotensive received IV fluids. -Rheumatoid arthritis: Continue with tramadol and the methotrexate, patient also receives biologic agents for this. -Hypothyroidism: Continue with levothyroxine
[2017-09-02] MEDS ORDERED: MIDAZOLAM 2 MG/2 ML VIAL ONE (13:12)
[2017-09-02] MEDS ORDERED: LIDOCAINE 2% INJ 20 MG/ML (20 ML MDV) ONE (13:12)
[2017-09-02] MEDS ORDERED: diphenhydrAMINE 50 MG/ML 1 ML VIAL ONE (13:12)
[2017-09-02] MEDS ORDERED: diphenhydrAMINE 50 MG/ML 1 ML VIAL IVP ONE (13:18)
[2017-09-02] MEDS ORDERED: MIDAZOLAM 2 MG/2 ML VIAL IV ONE (13:20)
[2017-09-02] MEDS ORDERED: LIDOCAINE 2% INJ 20 MG/ML SQ ONE (13:22)
[2017-09-02] MEDS ORDERED: RX INFO: IV CONTRAST WAS GIVEN 1 EACH MISC MISCELLANE PRN ×2 (14:28→18:47)
[2017-09-02] MEDS ORDERED: IOHEXOL 350 MG/ML 125ML BOTTLE INJ ONE (14:30)
--- NOTE | 2017-09-02 14:58 | CC ---
CARDIAC CATHETERIZATION REPORT INDICATION: Non ST-segment elevation WI. PROCEDURE NOTE: After obtaining informed consent, left heart catheterization, coronary angiogram are performed via the right femoral artery using standard Agustina catheters. The patient tolerated the procedure well without any obvious immediate complications. Patient received moderate conscious sedation. Total sedation time was 20 minutes. FINDINGS: 1. Hemodynamics: Left ventricular end-diastolic pressure is 14 mm. There is no significant gradient across the aortic valve. 2. Left Ventriculogram: Left ventriculogram is not performed. 3. ANGIOGRAPHIC DATA: Left main coronary artery: Left main coronary artery appears heavily calcified, but is free of significant stenosis. Divides into left anterior descending coronary artery and circumflex coronary artery. The LAD and circ are also heavily calcified. There is [id number] nonobstructive disease involving proximal and mid LAD. The circ is free of significant stenosis. The right coronary artery is a large dominant vessel that is heavily calcified. In its midportion there is a moderate stenosis. CONCLUSIONS: Heavily calcified coronaries with mild coronary artery disease involving LAD and moderate area of stenosis in the right coronary artery. PLAN: I am going to review angiographic data with Dr. Steven Sharif the on-call shrimp picker and decide on whether to do angioplasty or do an FFR of the right coronary artery and just treat her with medical therapy given how heavily calcified her vessels are. I will consider doing a D-dimer also on her to rule out pulmonary embolism as an etiology for her symptoms. MMJUNL / IJN: [id number] /
[2017-09-02] MEDS ORDERED: HEPARIN SODIUM,PORCINE 5,000 UNIT/ML 1 ML VIAL SQ SCH (16:00)
[2017-09-02] MEDS ORDERED: ENOXAPARIN 100 MG/ML SYRINGE SQ STA (18:48)
--- NOTE | 2017-09-02 20:34 | CT ---
EXAMINATION TYPE: CT angio thoracic/abd aorta without and with contrast and with 3-D reconstruction r endbos DATE OF EXAM: 09/02/2017 COMPARISON: NONE HISTORY: SOB, R/O PE vs aortic dissection CT DLP: 1484.1 mGycm. Automated Exposure Control for Dose Reduction was Utilized. CONTRAST: CT scan of the thorax, abdomen and pelvis is performed with IV Contrast, patient injected w ith 80 mL of Isovue 370. 3-D reconstruction renderings. FINDINGS: CHEST: The pulmonary arterial tree shows prominent distal right pulmonary arterial and distal left pu lmonary arterial filling defects which are near occlusive consistent with acute pulmonary emboli. The right heart chambers are larger than the left heart chambers and the interventricular septum is not convex. These CT findings can correlate with right heart strain. Precontrast CT data set negative for intramural hematoma. Postcontrast CTA of the chest and abdomen a nd pelvis shows negative aortoiliac opacification. Coronary arterial calcifications noted. ABDOMEN AND PELVIS: Remainder of the examination of the abdomen and pelvis is negative. Hollow and so lid viscera of the abdomen and pelvis unremarkable. Vasculature is otherwise unremarkable. No mass or adenopathy. Skeletal structures unremarkable. IMPRESSION: 1. CHEST: BILATERAL NEURAL OCCLUSIVE PULMONARY EMBOLI WITH CT EVIDENCE SUGGESTING RIGHT HEART STRAIN. 2. Abdomen-Pelvis: No acute process. *Discussed the impression with the patient's nurse Cornelio just now; she is calling Dr. Sharif with the results now.
[2017-09-02] MEDS: SODIUM CHLORIDE 0.9% 1,000 ML IV SCH (22:46)
[2017-09-03] MEDS ORDERED: ONDANSETRON 4 MG/2 ML VIAL IVP PRN (01:57)
[2017-09-03] MEDS: SODIUM CHLORIDE 0.9% 1,000 ML IV SCH ×2 (06:24→20:16)
[2017-09-03] MEDS: LEVOTHYROXINE 50 MCG TAB PO SCH (06:29)
[2017-09-03 06:41] LABS: Anisocytosis Slight; HCT 43.8 % (34.0-46.0); HGB 14.2 gm/dL (11.4-16.0); MCH 33.7 pg (25.0-35.0); MCHC 32.5 g/dL (31.0-37.0); MCV 103.7 fL (80.0-100.0); Macrocytosis Moderate; Mean Platelet Volume 7.8; Platelet Count 143 k/uL (150-450); RBC 4.22 m/uL (3.80-5.40); RDW 16.4 % (11.5-15.5); WBC 5.3 k/uL (3.8-10.6)
[2017-09-03 06:57] LABS: Calcium 8.2 mg/dL (8.4-10.2); Potassium 4.8 mmol/L (3.5-5.1)
[2017-09-03] MEDS ORDERED: ENOXAPARIN 80 MG/0.8 ML SYRINGE SQ SCH (07:00)
[2017-09-03] MEDS: ASPIRIN 325 MG TAB PO SCH (08:31)
[2017-09-03] MEDS: ATORVASTATIN 20 MG TAB PO SCH (08:31)
[2017-09-03] MEDS: FOLIC ACID 1 MG TAB PO SCH (08:32)
[2017-09-03] MEDS: DULoxetine HCL 30 MG CAPSULE.DR PO SCH ×2 (08:32→20:14)
[2017-09-03] MEDS: OXYBUTYNIN XL 5 MG TAB.ER.24 PO SCH (08:34)
[2017-09-03] MEDS: METOPROLOL SUCCINATE (ER) 25 MG TAB.ER.24H PO SCH (08:34)
[2017-09-03] MEDS ORDERED: HEPARIN SODIUM,PORCINE 10,000 UNIT/ML 1 ML VIAL IV ONE (09:36)
[2017-09-03] MEDS ORDERED: HEPARIN SODIUM,PORCINE 5,000 UNIT/ML 1 ML VIAL IV PRN (09:36)
[2017-09-03] MEDS ORDERED: HEPARIN SOD,PORK IN 0.45% NACL 25,000 UNIT in 0.45% NACL 1 500ML.BAG IV SCH (09:45)
[2017-09-03 10:33] LABS: INR 1.2 (<1.2); Partial Thromboplastin Time 27.8 sec (22.0-30.0); Prothrombin Time 11.8 sec (9.0-12.0)
--- NOTE | 2017-09-03 11:53 | PN ---
PROGRESS NOTE Alejandra is a 72-year-old lady who was admitted to the hospital with shortness of breath and chest discomfort. She had EKG changes in the precordial leads. I performed a cardiac catheterization on her that revealed obstructive disease in the right coronary artery, but did not quite explain her clinical presentation. Hence, I ordered a D- dimer on her that came back elevated and subsequently she went on to have a CT scan of her chest. CT chest revealed bilateral pulmonary emboli with distal right and left pulmonary arteries showing near occlusion consistent with acute pulmonary embolism. started her on Lovenox last night. This morning, patient appears comfortable at rest. Her shortness of breath has improved. Her O2 sat is 93% on 3 L. Heart rate is around 85 to 90 beats per minute. Blood pressure is 100 mm systolic. The patient is currently on Toprol XL, IV heparin that I started her on this morning instead of the Lovenox, on Lipitor and on aspirin. An echocardiogram on her shows an enlarged right ventricle with normal LV function. The RV systolic pressure. She does not have significant pulmonary hypertension. PHYSICAL EXAM: Physical exam shows that there is no jugular venous distention. Chest exam shows good air entry bilaterally. Heart exam reveals first and second heart sounds. No gallop. Examination of extremities did not reveal any edema. Peripheral pulses are palpable. ASSESSMENT: 1. Acute shortness of breath secondary to pulmonary embolism. 2. Coronary artery disease. PLAN: Patient will be on IV heparin. I reviewed echo and CT findings with her. The patient is getting better clinically. She is not in respiratory distress. She is hemodynamically stable. Will continue her on current therapies. I will obtain venous duplex of the lower extremities to rule out DVT. MMODL / IJN: [id number] /
--- NOTE | 2017-09-03 13:03 | P.PN ---
Subjective 72-year-old female came in which are as of breath probably related to unstable angina patient is going for cardiac catheterization today. Patient denied any recent chest pain her respiratory status and breathing did improve. 09/03/2017 Patient underwent cardiac catheterization which did not show any stentable atherosclerotic coronary vascular disease found to have bilateral pulmonary emboli with the DVT in the right popliteal vein. Patient is on IV heparin which will be switched to oral anticoagulation. Constitutional: Denied any fatigue denied any fever. Cardio vascular: denied any chest pain, palpitations Gastrointestinal denied any nausea vomiting Pulmonary: As mentioned in the interval history Neurologic denied any new focal deficits Objective - Vital Signs Vital signs: Vital Signs Temp 97.4 F L 09/03/17 12:00 Pulse 96 09/03/17 12:00 Resp 18 09/03/17 12:00 BP 110/62 09/03/17 12:00 Pulse Ox 94 L 09/03/17 12:00 Intake & Output 09/02/17 09/03/17 09/03/17 18:59 06:59 18:59 Intake Total 100 240 Balance 100 240 Weight 84.3 kg Intake: IV 100 Oral 240 Other: Voiding Method Toilet # Voids 1 - Exam PHYSICAL EXAMINATION: GENERAL: The patient is alert and oriented x3, not in any acute distress. Well developed, well nourished. HEENT: Pupils are round and equally reacting to light. EOMI. No scleral icterus. No conjunctival pallor. Normocephalic, atraumatic. No pharyngeal erythema. No thyromegaly. CARDIOVASCULAR: S1 and S2 present. No murmurs, rubs, or gallops. PULMONARY: Chest is clear to auscultation, no wheezing or crackles. ABDOMEN: Soft, nontender, nondistended, normoactive bowel sounds. No palpable organomegaly. MUSCULOSKELETAL: No joint swelling or deformity. EXTREMITIES: No cyanosis, clubbing, or pedal edema. NEUROLOGICAL: Gross neurological examination did not reveal any focal deficits. SKIN: No rashes. - Labs CBC & Chem 7: 09/03/17 06:04 09/03/17 06:04 Labs: Abnormal Lab Results - Last 24 Hours (Table) 09/02/17 09/03/17 09/03/17 Range/Units 14:32 06:04 06:04 MCV 103.7 H (80.0-100.0) fL RDW 16.4 H (11.5-15.5) % Plt Count 143 L (150-450) k/uL INR (<1.2) D-Dimer 6.80 H (<0.60) mg/L FEU Chloride 111 H (98-107) mmol/L Glucose 102 H (74-99) mg/dL Calcium 8.2 L (8.4-10.2) mg/dL 09/03/17 Range/Units 06:04 MCV (80.0-100.0) fL RDW (11.5-15.5) % Plt Count (150-450) k/uL INR 1.2 H (<1.2) D-Dimer (<0.60) mg/L FEU Chloride (98-107) mmol/L Glucose (74-99) mg/dL Calcium (8.4-10.2) mg/dL Assessment and Plan Plan: -Shortness of breath: Secondary to bilateral pulmonary embolism anti- correlation as mentioned above cardiac patient is status post cardiac catheterization -Chest pressure like sensation: due pulmonary embolism -Hypertension: -Rheumatoid arthritis: Continue with tramadol and the methotrexate, patient also receives biologic agents for this. -Hypothyroidism: Continue with levothyroxine
--- NOTE | 2017-09-03 13:37 | ECHOF ---
Referral Reason:chest pain MEASUREMENTS -------- HEIGHT: 152.4 cm WEIGHT: 83.9 kg BP: 108/57 RVIDd: 3.6 cm (< 3.3) IVSd: 1.5 cm (0.6 - 1.1) LVIDd: 3.6 cm (3.9 - 5.3) LVPWd: 1.3 cm (0.6 - 1.1) IVSs: 1.9 cm LVIDs: 2.3 cm LVPWs: 1.7 cm LA Diam: 4.1 cm (2.7 - 3.8) LAESV Index (A-L): 32.94 ml/m Ao Diam: 3.5 cm (2.0 - 3.7) AV Cusp: 1.3 cm (1.5 - 2.6) MV EXCURSION: 11.063 mm (> 18.000) MV EF SLOPE: 26 mm/s (70 - 150) EPSS: 0.2 cm MV E Niraj: 1.01 m/s MV DecT: 192 ms MV A Niraj: 1.60 m/s MV E/A Ratio: 0.63 AV maxP.88 mmHg AV meanP.49 mmHg RAP: 5.00 mmHg RVSP: 31.59 mmHg FINDINGS -------- Sinus rhythm. This was a technically good study. The left ventricular size is normal. There is moderate concentric left ventricular hypertrophy. O verall left ventricular systolic function is normal with, an EF between 65 - 70 %. The right ventricle is mildly enlarged. LA is midly dilated 29-33ml/m2. The right atrium is normal in size. There is moderate aortic valve sclerosis. There is mild aortic stenosis present. Peak/mean gradie nt across the Aortic Valve is 18.88mmHg / 9.49mmHg. The mitral valve leaflets are moderately thickened. Moderate mitral annular calcification present. Mild mitral regurgitation is present. Mild tricuspid regurgitation present. Right ventricular systolic pressure is normal at < 35 mmHg. Trace/mild (physiologic) pulmonic regurgitation. The aortic root size is normal. Normal inferior vena cava with normal inspiratory collapse consistent with estimated right atrial pre ssure of 5 mmHg. There is no pericardial effusion. CONCLUSIONS -------- 1. Sinus rhythm. 2. This was a technically good study. 3. The left ventricular size is normal. 4. There is moderate concentric left ventricular hypertrophy. 5. Overall left ventricular systolic function is normal with, an EF between 65 - 70 %. 6. The right ventricle is mildly enlarged. 7. LA is midly dilated 29-33ml/m2. 8. The right atrium is normal in size. 9. There is moderate aortic valve sclerosis. 10. There is mild aortic stenosis present. 11. Peak/mean gradient across the Aortic Valve is 18.88mmHg / 9.49mmHg. 12. The mitral valve leaflets are moderately thickened. 13. Moderate mitral annular calcification present. 14. Mild mitral regurgitation is present. 15. Mild tricuspid regurgitation present. 16. Right ventricular systolic pressure is normal at < 35 mmHg. 17. Trace/mild (physiologic) pulmonic regurgitation. 18. The aortic root size is normal. 19. Normal inferior vena cava with normal inspiratory collapse consistent with estimated right atrial pressure of 5 mmHg. 20. There is no pericardial effusion. WATER SERVER: Era Back RDCS
--- NOTE | 2017-09-03 13:48 | US ---
EXAMINATION TYPE: US venous doppler duplex LE DATE OF EXAM: 09/03/2017 12:42 PM COMPARISON: NONE CLINICAL HISTORY: pulmonary embolism. PE, not on blood thinners SIDE PERFORMED: Bilateral TECHNIQUE: The lower extremity deep venous system is examined utilizing real time linear array sonog vadim with graded compression, doppler sonography and color-flow sonography. VESSELS IMAGED: External Iliac Vein (EIV) Common Femoral Vein Deep Femoral Vein Greater Saphenous Vein * Femoral Vein Popliteal Vein Small Saphenous Vein * Proximal Calf Veins (* superficial vessels) Low-level internal echoes and lack of compressibility, color flow noted within the popliteal vein on the right. Right Leg: Appears positive for DVT proximal popliteal vein through proximal calf veins Left Leg: Appears negative for DVT Grayscale, color doppler, spectral doppler imaging performed of the deep veins of the lower extremiti es. IMPRESSION: Deep venous thrombosis within the right leg popliteal vein peripherally into calf vein s.
--- NOTE | 2017-09-03 17:17 | CT ---
EXAMINATION TYPE: CT brain wo con DATE OF EXAM: 09/03/2017 COMPARISON: NONE HISTORY: CVA/TIA CT DLP: 959.6 mGycm Automated exposure control for dose reduction was used. FINDINGS: There is some cerebral cortical atrophy. There is mild hypodensity in the periventricular white matte r. There is no mass effect nor midline shift. There is no sign of intracranial hemorrhage. The calvar ium is intact. IMPRESSION: CEREBRAL ATROPHY AND CHRONIC SMALL VESSEL ISCHEMIA. NO ACUTE INTRACRANIAL ABNORMALITY. 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
[2017-09-03] MEDS: APIXABAN 5 MG TAB PO SCH (18:12)
--- NOTE | 2017-09-03 19:50 | P.CNNES ---
History of Present Illness Consult date: 09/03/17 Reason for Consult: This patient being evaluated for acute TIA. History of Present Illness: This patient is a 72-year-old right-handed white female who was initially admitted to Hospital on 09/01/2017 with symptoms of acute respiratory distress and chest pain. The patient underwent further evaluation for her breast Fawad symptoms and underwent a computed tomography scan of the chest which revealed her to have bilateral pulmonary emboli. She was placed on IV heparin protocol and was seen by cardiology who performed a cardiac catheterization yesterday which revealed her to have no evidence for a stent a ball coronary artery disease. She was recommended only medical treatment for this condition as she was not a candidate for any stenting of the coronary arteries. Today the patient apparently was found to have evidence of coagulation disorder and was sent for a computed tomography scan of the brain. A CAT scan of the brain was performed today and reveals evidence of cerebral atrophy and chronic small vessel ischemic changes. No acute intracranial hemorrhage was noted. 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 The patient is resting comfortably. She has no evidence of any neurological deficit. She denies any headache or focal weakness. We reviewed the results of the CAT scan today with the patient in detail. Apparently her cardiac catheterization revealed heavily calcified coronaries in the LAD and right coronary artery. Once again it was recommended medical management for these findings with no stent procedure to be performed. Patient did go for ultrasound of the lower extremities today and a venous Doppler procedure was done today. This came back positive for deep vein thrombosis in the right popliteal vein. According to the nursing staff she is now been placed on Eliquis for long-term anticoagulation. Once again neurologically the patient denies any headache or focal weakness. We reviewed the results of the computed tomography scan of the brain done earlier today in detail with the patient. We will continue close neurological follow-up for the patient during this admission. Review of Systems Constitutional: Denies chills, Denies fever Eyes: denies blurred vision, denies pain Ears, nose, mouth and throat: Denies headache, Denies sore throat Cardiovascular: Denies chest pain, Denies shortness of breath Respiratory: Denies cough Gastrointestinal: Denies abdominal pain, Denies diarrhea, Denies nausea, Denies vomiting Genitourinary: Denies dysuria, Denies hematuria Musculoskeletal: Denies myalgias Integumentary: Denies pruritus, Denies rash Neurological: Reports paresthesias, Denies numbness, Denies weakness Psychiatric: Denies anxiety, Denies depression Endocrine: Denies fatigue, Denies weight change Past Medical History Past Medical History: Cancer, Hypertension, Osteoarthritis (OA), Rheumatoid Arthritis (RA), Thyroid Disorder Additional Past Medical History / Comment(s): small cancerous lump removed from breast. Did not need radiation or chemo. History of Any Multi-Drug Resistant Organisms: None Reported Past Surgical History: Bariatric Surgery, Breast Surgery, Cholecystectomy, Hernia Repair, Tonsillectomy, Tubal Ligation Additional Past Surgical History / Comment(s): Left Breast Biopsy. TOTAL LT KNEE, R total knee. Colonoscopies, right cataract removal Past Anesthesia/Blood Transfusion Reactions: No Reported Reaction Past Psychological History: No Psychological Hx Reported Smoking Status: Former smoker Past Alcohol Use History: None Reported Past Drug Use History: None Reported - Past Family History Brother(s) Family Medical History: Cancer Sister(s) Family Medical History: Cancer Additional Family Medical History / Comment(s): Lymphoma Medications and Allergies Home Medications Medication Instructions Recorded Confirmed Type Folic Acid 1 mg PO QAM 11/18/14 09/01/17 History Tofacitinib Citrate [Xeljanz] 11 mg PO QAM 11/18/14 09/01/17 History Tolterodine ER [Detrol LA] 4 mg PO DAILY 11/18/14 09/01/17 History [place]-3 Fatty Acids/Fish Oil [Fish 1,000 mg PO DAILY 07/11/16 09/01/17 History Oil 1,000 mg Softgel] traMADol HCL [Ultram] 50 mg PO DIRECTED PRN 07/11/16 09/01/17 History amLODIPine [Norvasc] 5 mg PO DAILY 04/04/17 09/01/17 History Losartan [Cozaar] 100 mg PO DAILY 05/25/17 09/01/17 History Methotrexate Sodium [Methotrexate] 20 mg PO Q7DAYS 05/25/17 09/01/17 History DULoxetine HCL [Cymbalta] 30 mg PO BID 09/01/17 09/01/17 History Levothyroxine Sodium [Synthroid] 50 mcg PO DAILY 09/01/17 09/01/17 History Allergies Allergy/AdvReac Type Severity Reaction Status Date / Time adhesive tape AdvReac skin peels Uncoded 09/01/17 12:22 Physical Examination - Vital Signs Vital Signs: Vital Signs Temp Pulse Pulse Resp BP Pulse Ox 09/03/17 16:00 97.0 F L 81 18 104/59 98 09/03/17 12:00 97.4 F L 96 93 18 110/62 94 L 09/03/17 08:00 97.6 F 93 18 107/55 93 L 09/03/17 04:20 19 09/03/17 04:00 98.9 F 85 18 108/57 92 L 09/02/17 23:12 100 19 09/02/17 23:11 98.1 F 100 19 130/72 91 L 09/02/17 19:50 98.0 F 104 H 18 152/73 100 Intake and Output 09/03/17 09/03/17 09/03/17 06:59 14:59 22:59 Intake Total 240 360 Balance 240 360 Intake: Oral 240 360 Other: Voiding Method Toilet # Voids 1 2 2 - Constitutional General appearance: average body habitus, cooperative - EENT EENT: PERRL, mucous membranes moist - Respiratory Respiratory: lungs clear, normal breath sounds - Cardiovascular Cardiovascular: regular rate, normal S1, normal S2 Extremities: no peripheral edema bilaterally - Gastrointestinal Gastrointestinal: normoactive bowel sounds - Integumentary Integumentary: normal - Neurologic Cranial nerve examination: PERRL, EOMI, VFF, V1/V2/V3 grossly intact, face symmetric, tongue midline, intact gag reflex, intact corneal reflex, normal palatal elevation Speech examination: intact Sensorimotor examination: intact Detailed motor examination: grossly full strength in all extremities Motor examination - right side: 4/5: biceps, triceps, wrist flexion, wrist extension, receiving associate store, hip flexors, knee extensors, dorsiflexion, toe extension (EHL) , plantarflexion Motor examination - left side: 4/5: biceps, triceps, wrist flexion, wrist extension, receiving associate store, hip flexors, knee extensors, dorsiflexion, toe extension (EHL) , plantarflexion Detailed sensory examination: intact Reflex and gait examination: intact Reflexes: 1+: ankle, bicep, knee, tricep - Musculoskeletal Musculoskeletal: no pain - Psychiatric Psychiatric: mood/affect appropriate, cooperative Results - Laboratory Findings CBC and BMP: 09/03/17 06:04 09/03/17 06:04 Abnormal Lab Findings: Abnormal Labs 09/01/17 09/01/17 09/01/17 12:20 12:20 12:20 Hct 51.2 H MCV 104.4 H MCHC 30.7 L RDW Plt Count 145 L INR APTT D-Dimer Chloride BUN 22 H Glucose 139 H Calcium Total Bilirubin 2.4 H CK-MB (CK-2) Troponin I 0.076 H* LDL Cholesterol, Calc 09/01/17 09/01/17 09/01/17 19:22 23:13 23:13 Hct MCV MCHC RDW Plt Count INR APTT 81.1 H D-Dimer Chloride BUN Glucose Calcium Total Bilirubin CK-MB (CK-2) 4.5 H* 5.4 H* Troponin I 0.578 H* 0.703 H* LDL Cholesterol, Calc 09/02/17 09/02/17 09/02/17 05:55 05:55 14:32 Hct MCV MCHC RDW Plt Count INR APTT 60.6 H D-Dimer 6.80 H Chloride BUN Glucose Calcium Total Bilirubin CK-MB (CK-2) Troponin I LDL Cholesterol, Calc 102 H 09/03/17 09/03/17 09/03/17 06:04 06:04 06:04 Hct MCV 103.7 H MCHC RDW 16.4 H Plt Count 143 L INR 1.2 H APTT D-Dimer Chloride 111 H BUN Glucose 102 H Calcium 8.2 L Total Bilirubin CK-MB (CK-2) Troponin I LDL Cholesterol, Calc 09/03/17 15:22 Hct MCV MCHC RDW Plt Count INR APTT >200.0 H* D-Dimer Chloride BUN Glucose Calcium Total Bilirubin CK-MB (CK-2) Troponin I LDL Cholesterol, Calc Assessment and Plan (1) TIA (transient ischemic attack) Current Visit: Yes Status: Acute Code(s): G45.9 - TRANSIENT CEREBRAL ISCHEMIC ATTACK, UNSPECIFIED SNOMED Code(s): 686479526 (2) Pulmonary emboli Current Visit: Yes Status: Acute Code(s): I26.99 - OTHER PULMONARY EMBOLISM WITHOUT ACUTE COR PULMONALE SNOMED Code(s): 55615549 (3) Deep vein thrombosis Current Visit: Yes Status: Acute Code(s): I82.409 - ACUTE EMBOLISM AND THOMBOS UNSP DEEP VN UNSP LOWER EXTREMITY SNOMED Code(s): 519747609 Plan: This patient is a 72-year-old female who was being followed for history of bilateral pulmonary emboli and deep vein thrombosis involving her right popliteal vein. Patient was sent for computed tomography scan of the brain today which came back negative for any acute findings. Neurological examination at this time is nonfocal. We will continue close monitoring of this patient during this admission. She is being anticoagulated and is currently been started on oral dosage of Eliquis. We will continue to monitor for any recurrent symptoms suggesting TIA or stroke. We have reviewed the results of the computed tomography scan of the brain today. Her neurological examination at this time is nonfocal. Overall prognosis at this time remains guarded. Time with Patient: Greater than 30
[2017-09-04 01:20] VITALS: RESP 16
[2017-09-04] MEDS: SODIUM CHLORIDE 0.9% 1,000 ML IV SCH (03:25)
[2017-09-04] MEDS: LEVOTHYROXINE 50 MCG TAB PO SCH (06:27)
[2017-09-04 07:20] LABS: Anisocytosis Slight; HCT 45.5 % (34.0-46.0); HGB 13.7 gm/dL (11.4-16.0); Hypochromasia Moderate; MCH 32.4 pg (25.0-35.0); MCV 107.7 fL (80.0-100.0); Macrocytosis Marked; Mean Platelet Volume 8.3; Platelet Count 146 k/uL (150-450); RBC 4.22 m/uL (3.80-5.40); RDW 16.5 % (11.5-15.5)
[2017-09-04] MEDS: APIXABAN 5 MG TAB PO SCH (08:22)
[2017-09-04] MEDS: METOPROLOL SUCCINATE (ER) 25 MG TAB.ER.24H PO SCH (08:23)
[2017-09-04] MEDS: ASPIRIN 325 MG TAB PO SCH (08:23)
[2017-09-04] MEDS: FOLIC ACID 1 MG TAB PO SCH (08:23)
[2017-09-04] MEDS: OXYBUTYNIN XL 5 MG TAB.ER.24 PO SCH (08:23)
[2017-09-04] MEDS: ATORVASTATIN 20 MG TAB PO SCH (08:23)
[2017-09-04] MEDS: DULoxetine HCL 30 MG CAPSULE.DR PO SCH (08:23)
[2017-09-04 08:59] LABS: Eosinophils # (M) 0.05 k/uL (0-0.7); Neutrophils % (M) 76 %; Nucleated Red Blood Cells 1 /100 WBC (0-0); Total Cells Counted 200
[2017-09-04 09:00] LABS: Lymphocytes # (M) 0.48 k/uL (1.0-4.8); Neutrophils # (M) 4.03 k/uL (1.3-7.7); Polychromasia Present; WBC 5.3 k/uL (3.8-10.6)
[2017-09-04 12:41] VITALS: BP 135/70; PULSE 87; TEMP 97.9
--- NOTE | 2017-09-04 12:48 | P.DS ---
Providers Date of admission: 09/01/17 16:03 Attending physician: Arianna Corey Consults: 09/01/17 16:03 Consult Physician Urgent Consulting Provider: [facility] Consult Reason/Comments: Unstable angina Do you want consulting provider notified?: Yes 09/03/17 16:45 Consult Physician Routine Consulting Provider: Daniela Richardson Consult Reason/Comments: TIA,CVA Do you want consulting provider notified?: Yes Primary care physician: Puja Posadas [facility] Course: 72-year-old female came in which are as of breath probably related to unstable angina patient is going for cardiac catheterization today. Patient denied any recent chest pain her respiratory status and breathing did improve. 09/03/2017 Patient underwent cardiac catheterization which did not show any stentable atherosclerotic coronary vascular disease found to have bilateral pulmonary emboli with the DVT in the right popliteal vein. Patient is on IV heparin which will be switched to oral anticoagulation. 09/04/2017 Patient will be discharged on Eliquis the patient is imminently stable. Cleared from cardiology perspective PHYSICAL EXAMINATION: GENERAL: The patient is alert and oriented x3, not in any acute distress. Well developed, well nourished. HEENT: Pupils are round and equally reacting to light. EOMI. No scleral icterus. No conjunctival pallor. Normocephalic, atraumatic. No pharyngeal erythema. No thyromegaly. CARDIOVASCULAR: S1 and S2 present. No murmurs, rubs, or gallops. PULMONARY: Chest is clear to auscultation, no wheezing or crackles. ABDOMEN: Soft, nontender, nondistended, normoactive bowel sounds. No palpable organomegaly. MUSCULOSKELETAL: No joint swelling or deformity. EXTREMITIES: No cyanosis, clubbing, or pedal edema. NEUROLOGICAL: Gross neurological examination did not reveal any focal deficits. SKIN: No rashes. Assessment and Plan Plan: -Shortness of breath: Secondary to bilateral pulmonary embolism anti-chelation as mentioned above cardiac patient is status post cardiac catheterization -Chest pressure like sensation: due pulmonary embolism -Hypertension: -Rheumatoid arthritis: Continue with tramadol and the methotrexate, patient also receives biologic agents for this. -Hypothyroidism: Continue with levothyroxine Plan - Discharge Summary Discharge Rx Participant: No New Discharge Prescriptions: New Apixaban [Eliquis] 5 mg PO BID #90 tab Metoprolol Succinate (ER) [Toprol XL] 25 mg PO DAILY #30 tab.er.24h No Action Tolterodine ER [Detrol LA] 4 mg PO DAILY Folic Acid 1 mg PO QAM Tofacitinib Citrate [Xeljanz] 11 mg PO QAM [place]-3 Fatty Acids/Fish Oil [Fish Oil 1,000 mg Softgel] 1,000 mg PO DAILY traMADol HCL [Ultram] 50 mg PO DIRECTED PRN PRN Reason: Pain amLODIPine [Norvasc] 5 mg PO DAILY Methotrexate Sodium [Methotrexate] 20 mg PO Q7DAYS Losartan [Cozaar] 100 mg PO DAILY DULoxetine HCL [Cymbalta] 30 mg PO BID Levothyroxine Sodium [Synthroid] 50 mcg PO DAILY Discharge Medication List Folic Acid 1 mg PO QAM 11/18/14 [History] Tofacitinib Citrate [Xeljanz] 11 mg PO QAM 11/18/14 [History] Tolterodine ER [Detrol LA] 4 mg PO DAILY 11/18/14 [History] [place]-3 Fatty Acids/Fish Oil [Fish Oil 1,000 mg Softgel] 1,000 mg PO DAILY 07/11 [History] traMADol HCL [Ultram] 50 mg PO DIRECTED PRN 07/11/16 [History] amLODIPine [Norvasc] 5 mg PO DAILY 04/04/17 [History] Losartan [Cozaar] 100 mg PO DAILY 05/25/17 [History] Methotrexate Sodium [Methotrexate] 20 mg PO Q7DAYS 05/25/17 [History] DULoxetine HCL [Cymbalta] 30 mg PO BID 09/01/17 [History] Levothyroxine Sodium [Synthroid] 50 mcg PO DAILY 09/01/17 [History] Apixaban [Eliquis] 5 mg PO BID #90 tab 09/04/17 [Rx] Metoprolol Succinate (ER) [Toprol XL] 25 mg PO DAILY #30 tab.er.24h 09/04/17 [Rx ] Follow up Appointment(s)/Referral(s): Puja Cox III, MD [Primary Care Provider] - 3 Days Activity/Diet/Wound Care/Special Instructions: pt has 30 days of Eliquis filled for free in [facility] pharmacy Discharge Disposition: HOME SELF-CARE
--- NOTE | 2017-09-04 16:01 | P.PN ---
Subjective Progress Note Date: 09/04/17 This pleasant 72-year-old lady was admitted to the hospital with shortness of breath and chest discomfort. He G show changes in the precordial leads and cardiac catheterization was performed that revealed obstructive disease in the RCA that did not quite explain her clinical presentation. A d-dimer was subsequently ordered and came back to be elevated dated. Computed tomography scan of the chest revealed bilateral pulmonary emboli with distal right and left pulmonary arteries show near occlusion consistent with acute pulmonary embolism. She was started on Lovenox and subsequently started onheparin and then on Eliquis 10 mg by mouth twice a day. Echocardiogram showed normal LV systolic function with a mildly enlarged RV. Upon examination, patient is resting comfortably in bed. She feels quite a bit better. She denies shortness of breath or chest discomfort. She has been up ambulating without difficulties. Objective - Vital Signs Vital signs: Vital Signs Temp 97.9 F 09/04/17 12:00 Pulse 87 09/04/17 12:00 Resp 16 09/04/17 12:00 BP 135/70 09/04/17 12:00 Pulse Ox 89 L 09/04/17 12:00 Intake & Output 09/03/17 09/04/17 09/04/17 18:59 06:59 18:59 Intake Total 600 120 240 Balance 600 120 240 Weight 85.6 kg Intake: Oral 600 120 240 Other: Voiding Method Toilet Toilet # Voids 2 1 1 - Exam PHYSICAL EXAMINATION: HEENT: Head is atraumatic, normocephalic. Pupils equal, round. Neck is supple. There is no elevated jugular venous pressure. HEART EXAMINATION: Heart sounds regular, S1 and S2 normal. No murmur or gallop heard. CHEST EXAMINATION: Lungs are clear to auscultation and precussion. No chest wall tenderness is noted on palpation or with deep breathing. ABDOMEN: Soft, nontender. Bowel sounds are heard. No organomegaly noted. EXTREMITIES: 2+ peripheral pulses with no evidence of peripheral edema and no calf tenderness noted. NEUROLOGIC patient is awake, alert and oriented x3. . - Labs CBC & Chem 7: 09/04/17 06:05 09/03/17 06:04 Labs: Abnormal Lab Results - Last 24 Hours (Table) 09/03/17 09/04/17 Range/Units 15:22 06:05 MCV 107.7 H (80.0-100.0) fL MCHC 30.0 L (31.0-37.0) g/dL RDW 16.5 H (11.5-15.5) % Plt Count 146 L (150-450) k/uL Lymphocytes # (Manual) 0.48 L (1.0-4.8) k/uL Nucleated RBCs 1 H (0-0) /100 WBC APTT >200.0 H* (22.0-30.0) sec Assessment and Plan Assessment: #1 acute shortness of breath secondary to pulmonary embolism #2 CAD Plan: From cardiology's perspective, patient is stable for discharge home. Continue Eliquis for anticoagulation. She'll follow-up in the office with Dr. Mueller. The above dictated assessment and findings were discussed with signing physician. The impression and plan of care have been directed as dictated. Karolina Goss, Nurse Practitioner, acting as scribe for signing physician.
--- NOTE | 2017-09-05 17:48 | CDI ---
Last Revision, May 2017 Documentation Clarification Form Date: 09/05/17 From: Nereida Bhaskar Kristin Schaefer, Motorized [employer] Captain between 8:30 am & 5 pm Shazia Admit Date: 09/01/2017 4:03:00 PM Patient Name: Alejandra Ram Visit Number: [id number] Discharge Date: 09/04/17 ATTENTION: The Clinical Documentation Specialists (CDI) and [facility] Coding Staff appreciate your assistance in clarifying documentation. Please respond to the clarification below the line at the bottom and electronically sign. The CDI & [facility] Coding staff will review the response and follow-up if needed. Please note: Queries are made part of the Legal Health Record. If you have any questions, please contact the author of this message via ITS. Dr. Arianna Corey Myocardial infarction is documented in the H&P, cardiology consult, 09/02 PN and cardiac cath. Patient was found to have bilateral pulmonary embolism. Patient History/Risk Factors: HTN, CAD, RA Troponin: 0.076, 0.578, 0.703 EKG Results: T wave inversion in the precordial leads suggestive of ischemia Treatment: IV Heparin, heart cath In order to capture the severity of condition and necessary documentation specificity, please clarify: Non ST segment RI ruled in Non ST segment RI ruled out Other, please specify Unable to determine Please continue to document in your progress notes and discharge summary in order to capture severity of illness and risk of mortality. Include clinical findings that support your diagnosis. _Non ST segment RI ruled out MTDD
[2017-09-08] MEDS ORDERED: METHOTREXATE SODIUM 2.5 MG TAB PO SCH (09:00)
== END 2017-09-04 14:22 | disposition home or self-care (01) | DRG 176 ==
LOC: EC 12:15 → OBSVTOIN 16:03 → 6SEL 16:03
PROVIDERS: ADMIT Internal Medicine; ATTEND Internal Medicine
PROC: B2111ZZ Fluoroscopy of Multiple Coronary Arteries using Low Osmolar Contrast (ICD-10-PCS; 2017-09-02)
PROC: 4A023N7 Measurement of Cardiac Sampling and Pressure, Left Heart, Percutaneous Approach (ICD-10-PCS; principal; 2017-09-02 13:06)
DX: I26.99 Other pulmonary embolism without acute cor pulmonale (principal); J81.1 Chronic pulmonary edema; I95.9 Hypotension, unspecified; D68.9 Coagulation defect, unspecified; I82.431 Acute embolism and thrombosis of right popliteal vein; M06.9 Rheumatoid arthritis, unspecified; I25.110 Atherosclerotic heart disease of native coronary artery with unstable angina pectoris; I11.9 Hypertensive heart disease without heart failure; I25.84 Coronary atherosclerosis due to calcified coronary lesion; E03.9 Hypothyroidism, unspecified; M19.91 Primary osteoarthritis, unspecified site; Z79.890 Hormone replacement therapy; Z79.899 Other long term (current) drug therapy; Z98.84 Bariatric surgery status; Z87.891 Personal history of nicotine dependence; Z96.653 Presence of artificial knee joint, bilateral; Z86.73 Personal history of transient ischemic attack (TIA), and cerebral infarction without residual deficits; Z85.3 Personal history of malignant neoplasm of breast; Z90.12 Acquired absence of left breast and nipple; Z90.49 Acquired absence of other specified parts of digestive tract; Z98.41 Cataract extraction status, right eye; Z91.048 Other nonmedicinal substance allergy status; Z80.7 Family history of other malignant neoplasms of lymphoid, hematopoietic and related tissues
CPT/HCPCS: 36415; 70450; 71045; 71046; 71275; 75635; 80048; 80053; 80061; 82550; 82553; 83735; 83880; 84484; 85025; 85027; 85379; 85610; 85730; 93005; 93306; 93458; 93970; 96361; 96365; 96366; 96376; 99291

== ENCOUNTER 2018-06-01 14:14 | Observation (INO) | payer MEDICARE ==
[2018-06-01] MEDS ORDERED: SODIUM CHLORIDE 0.9% 1,000 ML IV STA (14:34)
--- NOTE | 2018-06-01 14:44 | ED ---
General Adult HPI - General Chief complaint: Weakness Stated complaint: Slurred speech Time Seen by Provider: 06/01/18 14:34 Source: patient, family, RN notes reviewed, old records reviewed Mode of arrival: wheelchair Limitations: no limitations - History of Present Illness Initial comments: 73-year-old female presents for evaluation of slurred speech. Symptoms began on Sunday was 3 days prior to arrival. Patient woke with symptoms today at 7 AM. She has history of hypertension, no history of CVA or TIA. Denies any focal numbness or weakness. Denies vision changes. Denies headache. Patient states she did have some chest tightness when she woke this morning as well. No significant chest pain. No dyspnea. No vomiting or diarrhea. No fever or chills. - Related Data Home Medications Medication Instructions Recorded Confirmed Folic Acid 1 mg PO QAM 11/18/14 06/01/18 [place]-3 Fatty Acids/Fish Oil [Fish 1,000 mg PO DAILY 07/11/16 06/01/18 Oil 1,000 mg Softgel] traMADol HCL [Ultram] 50 mg PO Q6H PRN 07/11/16 06/01/18 amLODIPine [Norvasc] 5 mg PO DAILY 04/04/17 06/01/18 Losartan [Cozaar] 100 mg PO DAILY 05/25/17 06/01/18 Methotrexate Sodium [Methotrexate] 25 mg PO WE 05/25/17 06/01/18 Levothyroxine Sodium [Synthroid] 50 mcg PO DAILY 09/01/17 06/01/18 PARoxetine [Paxil] 10 mg PO DAILY 06/01/18 06/01/18 Tofacitinib Citrate [Xeljanz Xr] 11 mg PO DAILY 06/01/18 06/01/18 Previous Rx's Medication Instructions Recorded Apixaban [Eliquis] 5 mg PO BID #90 tab 09/04/17 Metoprolol Succinate (ER) [Toprol 25 mg PO DAILY #30 tab.er.24h 09/04/17 XL] Allergies Allergy/AdvReac Type Severity Reaction Status Date / Time adhesive tape AdvReac skin peels Uncoded 06/01/18 14:25 Review of Systems ROS Statement: Those systems with pertinent positive or pertinent negative responses have been documented in the HPI. ROS Other: All systems not noted in ROS Statement are negative. Past Medical History Past Medical History: Cancer, CVA/TIA, Hypertension, Osteoarthritis (OA), Rheumatoid Arthritis (RA), Thyroid Disorder Additional Past Medical History / Comment(s): small cancerous lump removed from breast. Did not need radiation or chemo. History of Any Multi-Drug Resistant Organisms: None Reported Past Surgical History: Bariatric Surgery, Breast Surgery, Cholecystectomy, Hernia Repair, Tonsillectomy, Tubal Ligation Additional Past Surgical History / Comment(s): Left Breast Biopsy. TOTAL LT KNEE, R total knee. Colonoscopies, right cataract removal Past Anesthesia/Blood Transfusion Reactions: No Reported Reaction Past Psychological History: No Psychological Hx Reported Smoking Status: Former smoker Past Alcohol Use History: None Reported Past Drug Use History: None Reported - Past Family History Brother(s) Family Medical History: Cancer Sister(s) Family Medical History: Cancer Additional Family Medical History / Comment(s): Lymphoma General Exam Limitations: no limitations General appearance: alert, in no apparent distress Head exam: Present: atraumatic, normocephalic Eye exam: Present: normal appearance, PERRL, EOMI ENT exam: Present: mucous membranes dry Neck exam: Present: normal inspection. Absent: tenderness, meningismus Respiratory exam: Present: normal lung sounds bilaterally. Absent: respiratory distress, wheezes Cardiovascular Exam: Present: regular rate, normal rhythm GI/Abdominal exam: Present: soft. Absent: distended, tenderness, guarding Extremities exam: Present: normal inspection, normal capillary refill. Absent: pedal edema Neurological exam: Present: alert, oriented X3. Absent: motor sensory deficit Expanded Neurological exam: Present: protecting the airway. Absent: ataxia, receptive aphasia, expressive aphasia Patient oriented to: Present: person, place, time Speech: Absent: fluid speech (Dysarthria) Cranial nerves: EOM's Intact: Normal, Gag Reflex: Normal, Tongue Deviation: Abnormal Right, Facial Sensation: Normal Cerebellar function: Finger to Nose: Normal, Heel to [place]: Normal Sensory exam: Upper Extremity Light Touch: Normal, Lower Extremity Light Touch: Normal Motor strength exam: RUE: 5, LUE: 5, RLE: 5, LLE: 5 Eye Response: (4) open spontaneously Motor Response: (6) obeys commands Verbal Response: (5) oriented Psychiatric exam: Present: normal affect, normal mood Skin exam: Present: warm, dry, intact. Absent: cyanosis, diaphoretic Course Vital Signs 06/01/18 06/01/18 06/01/18 14:22 15:00 15:15 Temperature 97.4 F L Pulse Rate 61 61 58 L Respiratory 20 18 18 Rate Blood Pressure 94/62 96/69 96/69 O2 Sat by Pulse 97 92 L 96 Oximetry 06/01/18 15:30 Temperature Pulse Rate 58 L Respiratory 18 Rate Blood Pressure 108/60 O2 Sat by Pulse 97 Oximetry - Reevaluation(s) Reevaluation #1: 06/01/18 16:16 Patient reevaluated, NIH of 1, speech is somewhat dysarthric although improved from initial presentation. No chest pain. 06/01/18 16:20 EKG Findings - EKG Comments: EKG Findings:: EKG: Normal sinus rhythm, T-wave inversion and Q waves in the inferior leads, similar to previous EKG in August 2017. No ST segment elevation or depression. OH interval 158, ventricular rate 64, QRS duration 82, QTC 447 Medical Decision Making - Medical Decision Making * 73-year-old female presenting with 3 days of dysarthria. Patient is an 81 for dysarthria, otherwise nonfocal. Initial blood pressure is in the 80s to 90s systolic. She is bolused normal saline. Symptoms do improve in the emergency department. She remains to have a nonfocal exam with only mild dysarthria. CT is performed, shows old lacunar infarct in the right caudate nucleus, no acute hemorrhage. Patient has normal CBC, CMP reveals a creatinine 1.3 with a baseline of 0.84. She does receive continued IV hydration. Troponin is mildly elevated 0.039, patient had chest pain earlier in the day, she does not have chest pain now, she is anticoagulated on Eliquis, this level will be trended - Lab Data Result diagrams: 06/01/18 14:42 06/01/18 14:42 Lab Results 06/01/18 06/01/18 06/01/18 Range/Units 14:42 14:42 14:42 WBC 5.0 (3.8-10.6) k/uL RBC 4.60 (3.80-5.40) m/uL Hgb 15.4 (11.4-16.0) gm/dL Hct 49.0 H (34.0-46.0) % MCV 106.6 H (80.0-100.0) fL MCH 33.5 (25.0-35.0) pg MCHC 31.5 (31.0-37.0) g/dL RDW 16.2 H (11.5-15.5) % Plt Count 178 (150-450) k/uL Neutrophils % (Manual) 47 % Band Neutrophils % 1 % Lymphocytes % (Manual) 39 % Monocytes % (Manual) 4 % Eosinophils % (Manual) 8 % Basophils % (Manual) 1 % Neutrophils # (Manual) 2.40 (1.3-7.7) k/uL Lymphocytes # (Manual) 1.95 (1.0-4.8) k/uL Monocytes # (Manual) 0.20 (0-1.0) k/uL Eosinophils # (Manual) 0.40 (0-0.7) k/uL Basophils # (Manual) 0.05 (0-0.2) k/uL Nucleated RBCs 0 (0-0) /100 WBC Manual Slide Review Performed Hypochromasia Slight Anisocytosis Slight Macrocytosis Marked PT (9.0-12.0) sec INR (<1.2) APTT (22.0-30.0) sec Sodium 139 (137-145) mmol/L Potassium 5.1 (3.5-5.1) mmol/L Chloride 106 (98-107) mmol/L Carbon Dioxide 25 (22-30) mmol/L Anion Gap 8 mmol/L BUN 35 H (7-17) mg/dL Creatinine 1.32 H (0.52-1.04) mg/dL Est GFR (CKD-EPI)AfAm 47 (>60 ml/min/1.73 sqM) Est GFR (CKD-EPI)NonAf 40 (>60 ml/min/1.73 sqM) Glucose 97 (74-99) mg/dL Plasma Lactic Acid Juancho (0.7-2.0) mmol/L Calcium 9.5 (8.4-10.2) mg/dL Magnesium 2.4 H (1.6-2.3) mg/dL Total Bilirubin 1.9 H (0.2-1.3) mg/dL AST 34 (14-36) U/L ALT 23 (9-52) U/L Alkaline Phosphatase 43 (38-126) U/L Total Creatine Kinase 54 (30-135) U/L CK-MB (CK-2) 0.8 (0.0-2.4) ng/mL CK-MB (CK-2) Rel Index 1.5 Troponin I 0.038 H* (0.000-0.034) ng/mL Total Protein 6.8 (6.3-8.2) g/dL Albumin 3.9 (3.5-5.0) g/dL Urine Color Urine Appearance (Clear) Urine pH (5.0-8.0) Ur Specific Ruby (1.001-1.035) Urine Protein (Negative) Urine Glucose (UA) (Negative) Urine Ketones (Negative) Urine Blood (Negative) Urine Nitrite (Negative) Urine Bilirubin (Negative) Urine Urobilinogen (<2.0) mg/dL Ur Leukocyte Esterase (Negative) Urine RBC (0-5) /hpf Urine WBC (0-5) /hpf Ur Squamous Epith Cells (0-4) /hpf 06/01/18 06/01/18 06/01/18 Range/Units 14:42 14:42 15:31 WBC (3.8-10.6) k/uL RBC (3.80-5.40) m/uL Hgb (11.4-16.0) gm/dL Hct (34.0-46.0) % MCV (80.0-100.0) fL MCH (25.0-35.0) pg MCHC (31.0-37.0) g/dL RDW (11.5-15.5) % Plt Count (150-450) k/uL Neutrophils % (Manual) % Band Neutrophils % % Lymphocytes % (Manual) % Monocytes % (Manual) % Eosinophils % (Manual) % Basophils % (Manual) % Neutrophils # (Manual) (1.3-7.7) k/uL Lymphocytes # (Manual) (1.0-4.8) k/uL Monocytes # (Manual) (0-1.0) k/uL Eosinophils # (Manual) (0-0.7) k/uL Basophils # (Manual) (0-0.2) k/uL Nucleated RBCs (0-0) /100 WBC Manual Slide Review Hypochromasia Anisocytosis Macrocytosis PT 10.0 (9.0-12.0) sec INR 0.9 (<1.2) APTT 23.2 (22.0-30.0) sec Sodium (137-145) mmol/L Potassium (3.5-5.1) mmol/L Chloride (98-107) mmol/L Carbon Dioxide (22-30) mmol/L Anion Gap mmol/L BUN (7-17) mg/dL Creatinine (0.52-1.04) mg/dL Est GFR (CKD-EPI)AfAm (>60 ml/min/1.73 sqM) Est GFR (CKD-EPI)NonAf (>60 ml/min/1.73 sqM) Glucose (74-99) mg/dL Plasma Lactic Acid Juancho 1.3 (0.7-2.0) mmol/L Calcium (8.4-10.2) mg/dL Magnesium (1.6-2.3) mg/dL Total Bilirubin (0.2-1.3) mg/dL AST (14-36) U/L ALT (9-52) U/L Alkaline Phosphatase (38-126) U/L Total Creatine Kinase (30-135) U/L CK-MB (CK-2) (0.0-2.4) ng/mL CK-MB (CK-2) Rel Index Troponin I (0.000-0.034) ng/mL Total Protein (6.3-8.2) g/dL Albumin (3.5-5.0) g/dL Urine Color Yellow Urine Appearance Clear (Clear) Urine pH 7.0 (5.0-8.0) Ur Specific Ruby 1.008 (1.001-1.035) Urine Protein Negative (Negative) Urine Glucose (UA) Negative (Negative) Urine Ketones Negative (Negative) Urine Blood Negative (Negative) Urine Nitrite Negative (Negative) Urine Bilirubin Negative (Negative) Urine Urobilinogen 2.0 (<2.0) mg/dL Ur Leukocyte Esterase Small H (Negative) Urine RBC 1 (0-5) /hpf Urine WBC 3 (0-5) /hpf Ur Squamous Epith Cells <1 (0-4) /hpf Disposition Clinical Impression: CVA (cerebral vascular accident) Disposition: ADMITTED IP TO THIS [facility] Condition: Stable Is patient prescribed a controlled substance at d/c from ED?: No Referrals: Puja Cox III, MD [Primary Care Provider] - 1-2 days Decision to Admit Reason: Admit from EC Decision Date: 06/01/18 Decision Time: 16:24
[2018-06-01 15:15] LABS: Anisocytosis Slight; HGB 15.4 gm/dL (11.4-16.0); Hypochromasia Slight; MCH 33.5 pg (25.0-35.0); MCHC 31.5 g/dL (31.0-37.0); MCV 106.6 fL (80.0-100.0); Macrocytosis Marked; Mean Platelet Volume 7.6; Platelet Count 178 k/uL (150-450); RDW 16.2 % (11.5-15.5)
[2018-06-01 15:18] LABS: INR 0.9 (<1.2); Partial Thromboplastin Time 23.2 sec (22.0-30.0)
[2018-06-01 15:19] LABS: Albumin 3.9 g/dL (3.5-5.0); Calcium 9.5 mg/dL (8.4-10.2); Magnesium 2.4 mg/dL (1.6-2.3); Total Bilirubin 1.9 mg/dL (0.2-1.3); Total Protein 6.8 g/dL (6.3-8.2)
[2018-06-01 15:24] LABS: Band Neutrophils % 1 %; Basophils # (M) 0.05 k/uL (0-0.2); Lymphocytes # (M) 1.95 k/uL (1.0-4.8); Neutrophils % (M) 47 %; Nucleated Red Blood Cells 0 /100 WBC (0-0); Total Cells Counted 100
--- NOTE | 2018-06-01 15:24 | CT ---
EXAMINATION TYPE: CT brain wo con DATE OF EXAM: 06/01/2018 COMPARISON: 09/03/2017 HISTORY: Slurred speech CT DLP: 1070.4 mGycm Automated exposure control for dose reduction was used. FINDINGS: There is cerebral cortical atrophy. There is no mass effect nor midline shift. There is no sign of in tracranial hemorrhage. The calvarium is intact. There is 4 mm hypodensity right caudate nucleus. IMPRESSION: CEREBRAL ATROPHY. OLD LACUNAR INFARCT RIGHT CAUDATE NUCLEUS. NO CHANGE COMPARED TO OLD EXAM. NO ACUTE ABNORMALITY.
[2018-06-01 15:25] LABS: Potassium 5.1 mmol/L (3.5-5.1)
--- NOTE | 2018-06-01 15:27 | XR ---
EXAMINATION TYPE: XR chest 2V DATE OF EXAM: 06/01/2018 COMPARISON: 09/02/2017 HISTORY: Weakness TECHNIQUE: Frontal and lateral views of the chest are obtained. FINDINGS: There is no heart failure nor confluent pneumonic infiltrate. Costophrenic angles are fair ly clear. There is slight coarsening of the lung markings. There are chest leads. Thoracic aorta is a theromatous. There is nodular right upper lobe density. IMPRESSION: Mild pulmonary fibrosis. No heart failure. There is a new 1 cm nodular density in the ri ght upper lobe compared to last exam.
[2018-06-01 15:43] LABS: Creatine Kinase MB 0.8 ng/mL (0.0-2.4)
[2018-06-01 15:44] LABS: Appearance,Urine Clear (Clear); Bilirubin,Urine Negative (Negative); Blood,Urine Negative (Negative); Color,Urine Yellow; Glucose,Urine (UA) Negative (Negative); Ketones,Urine Negative (Negative); Leukocyte Esterase,Urine Small (Negative); Nitrite,Urine Negative (Negative); Protein,Urine Negative (Negative); RBC,Urine 1 /hpf (0-5); Specific Gravity,Urine 1.008 (1.001-1.035); Squamous Epithelial Cell,Urine <1 /hpf (0-4); WBC,Urine 3 /hpf (0-5)
[2018-06-01 16:04] LABS: Troponin I 0.038 ng/mL (0.000-0.034)
[2018-06-01] MEDS ORDERED: ASPIRIN 325 MG TAB PO STA (16:12)
[2018-06-01] MEDS: SODIUM CHLORIDE 0.9% 1,000 ML IV SCH ×2 (16:25→17:36)
[2018-06-01 18:14] VITALS: BMI 38.2
[2018-06-01] MEDS: APIXABAN 5 MG TAB PO SCH (20:30)
[2018-06-01] MEDS ORDERED: traMADol 50 MG TAB PO PRN (20:37)
[2018-06-02 03:58] LABS: Cholesterol 188 mg/dL (<200); HDL Cholesterol 56 mg/dL (40-60); LDL Cholesterol,Calculated 111 mg/dL (0-99); Triglycerides 105 mg/dL (<150)
[2018-06-02] MEDS: SODIUM CHLORIDE 0.9% 1,000 ML IV SCH ×3 (04:18→09:29)
[2018-06-02] MEDS ORDERED: LEVOTHYROXINE 50 MCG TAB PO SCH (06:30)
--- NOTE | 2018-06-02 08:37 | US ---
EXAMINATION TYPE: US carotid duplex BILAT DATE OF EXAM: 06/02/2018 COMPARISON: CT angio neck 03/09/2016 CLINICAL HISTORY: Stenosis. EXAM MEASUREMENTS: RIGHT: Peak Systolic Velocity (PSV) cm/sec ----- Right CCA: Unable to obtain arterial waveforms ----- Right ICA: Unable to obtain arterial waveforms ----- Right ECA: Unable to obtain arterial waveforms RIGHT: End Diastole cm/sec ----- Right CCA: Unable to obtain arterial waveforms ----- Right ICA: Unable to obtain arterial waveforms ----- Right ECA: Unable to obtain arterial waveforms LEFT: Peak Systolic Velocity (PSV) cm/sec ----- Left CCA: 80.6 ----- Left ICA: 129.9 ----- Left ECA: 104.3 ICA/CCA ratio: 1.6 LEFT: End Diastole cm/sec ----- Left CCA: 20.8 ----- Left ICA: 32.3 ----- Left ECA: 11.4 VERTEBRALS (direction of flow): Right Vertebral: Antegrade Left Vertebral: Antegrade Rhythm: Normal on the left Unable to obtain arterial waveforms on the right within any vessels but the vertebral artery. Color f ill is visualized within the entire right CCA, ICA, and ECA with moderate plaque visualized within th e bulb and intimal thickening visualized within the CCA. Multiple attempts were made to obtain arteri al waveforms, only venous waveforms visualized due to possible prominent jugular vein vs other. Left bulb has moderate amount of plaque visualized. Slightly elevated velocity visualized within the dista l left ICA Grayscale images show moderate plaque centered at right carotid bulb. Technologist could not obtain v elocity measurements despite multiple attempts. Moderate to severe eccentric plaque at left carotid b ulb is also noted. Velocity measurements on the left upper limits of normal. IMPRESSION: Moderate to severe plaque bilaterally, cannot exclude new significant stenosis in the ri ght internal carotid artery. Consider repeat CTA or MRA of the neck to better evaluate and characteri ze. Criteria for Assigning % of Stenosis / Diameter reduction (Estimation based on the indirect measurements of the internal carotid artery velocities (ICA PSV). 1. Normal (no stenosis)=ICA PSV < 125 cm/s: ratio < 2.0: ICA EDV<40 cm/s. 2. Less than 50% stenosis=ICA PSV < 125 cm/s: ratio < 2.0: ICA EDV<40 cm/s. 3. 50 to 69% stenosis=ICA PSV of 125 to 230 cm/s: ration 2.0 ? 4.0: ICA EDV 40-100 cm/s. 4. Greater than 70% stenosis to near occlusion= ICA PSV > 230 cm/s: ratio > 4.0: ICA EDV > 100 cm/s. 5. Near occlusion= ICA PSV velocities may be low or undetectable: variable ratio and ICA EDV. 6. Total occlusion=unable to detect flow.
[2018-06-02] MEDS ORDERED: PARoxetine 10 MG TAB PO SCH (09:00)
[2018-06-02] MEDS ORDERED: METOPROLOL SUCCINATE (ER) 25 MG TAB.ER.24H PO SCH (09:00)
[2018-06-02] MEDS ORDERED: XELJANZ 11 MG PO SCH (09:00)
[2018-06-02] MEDS: APIXABAN 5 MG TAB PO SCH (09:29)
[2018-06-02 09:38] VITALS: PULSE 72; TEMP 98.2
[2018-06-02 10:01] LABS: Calcium 8.9 mg/dL (8.4-10.2); Potassium 4.7 mmol/L (3.5-5.1)
--- NOTE | 2018-06-02 10:38 | P.CNNES ---
History of Present Illness Consult date: 06/02/18 Requesting physician: Fidencio Good Reason for Consult: Dysarthria/CVA Chief complaint: CVA History of Present Illness: Neurology is consult in a 73-year-old female who presents with intermittent dysarthria. Patient had dysarthria approximately 3 days ago while at work. 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 Patient states that she was able to speak but she was having difficulty with making sense on the telephone. Occurrence lasted approximately 90 minutes and then resolved. Patient was asymptomatic for approximately 2 days. Patient then woke up in the morning and had similar occurrence and presented to the ED. Patient was evaluated in the ED and symptoms resolved while in the ED. Patient was given bolus of normal saline and her blood pressure improved in the ED. At initial presentation patient blood pressure was in the 90s. CT brain showed old lacunar infarct in the right caudate nucleus, no acute process. Carotid Doppler noted moderate to severe plaque bilaterally, cannot exclude new significant stenosis in the right internal carotid artery. Consider repeat CTA or MRA of the neck to better evaluate and characterize. Patient had normal CBC , CMP noted creatinine of 1.3, BUN 3.5. Lipid panel only noted elevated LDL. Patient is not on any antiplatelet hyperlipidemia medication. Patient is currently taking Elliquis in the outpatient setting. On contact, patient was alert and oriented 3, resting in bed in no acute distress. Patient stated that she had been having for the last 1-2 months unilateral retro-orbital variable in intensity ongoing head pain with visual changes as well as difficulty with blood pressure control. Patient states that she was lying down for approximately 1-2 hours during occurrences and they would resolve. Patient denied any other neurological status changes over the last 1-2 months other than noted changes. Review of Systems Systems not noted are negative Past Medical History Past Medical History: Cancer, CVA/TIA, Hypertension, Osteoarthritis (OA), Rheumatoid Arthritis (RA), Thyroid Disorder Additional Past Medical History / Comment(s): small cancerous lump removed from breast. Did not need radiation or chemo. History of Any Multi-Drug Resistant Organisms: None Reported Past Surgical History: Bariatric Surgery, Breast Surgery, Cholecystectomy, Hernia Repair, Tonsillectomy, Tubal Ligation Additional Past Surgical History / Comment(s): Left Breast Biopsy. TOTAL LT KNEE, R total knee. Colonoscopies, right cataract removal Past Anesthesia/Blood Transfusion Reactions: No Reported Reaction Past Psychological History: No Psychological Hx Reported Smoking Status: Former smoker Past Alcohol Use History: None Reported Additional Past Alcohol Use History / Comment(s): former smoker 10yrs, <1 PPD, quit 40 years ago. Past Drug Use History: None Reported - Past Family History Brother(s) Family Medical History: Cancer Sister(s) Family Medical History: Cancer Additional Family Medical History / Comment(s): Lymphoma Medications and Allergies Home Medications Medication Instructions Recorded Confirmed Type Folic Acid 1 mg PO QAM 11/18/14 06/01/18 History [place]-3 Fatty Acids/Fish Oil [Fish 1,000 mg PO DAILY 07/11/16 06/01/18 History Oil 1,000 mg Softgel] traMADol HCL [Ultram] 50 mg PO Q6H PRN 07/11/16 06/01/18 History amLODIPine [Norvasc] 5 mg PO DAILY 04/04/17 06/01/18 History Losartan [Cozaar] 100 mg PO DAILY 05/25/17 06/01/18 History Methotrexate Sodium [Methotrexate] 25 mg PO WE 05/25/17 06/01/18 History Levothyroxine Sodium [Synthroid] 50 mcg PO DAILY 09/01/17 06/01/18 History Apixaban [Eliquis] 5 mg PO BID #90 tab 09/04/17 06/01/18 Rx Metoprolol Succinate (ER) [Toprol 25 mg PO DAILY #30 tab.er.24h 09/04/17 Rx XL] PARoxetine [Paxil] 10 mg PO DAILY 06/01/18 06/01/18 History Tofacitinib Citrate [Xeljanz Xr] 11 mg PO DAILY 06/01/18 06/01/18 History Allergies Allergy/AdvReac Type Severity Reaction Status Date / Time adhesive tape AdvReac skin peels Uncoded 06/01/18 14:25 Physical Examination - Vital Signs Vital Signs: Vital Signs Temp Pulse Pulse Resp BP BP BP 06/02/18 08:00 98.2 F 72 14 93/57 06/02/18 03:48 98.1 F 56 L 18 127/58 06/01/18 23:43 97.2 F L 59 L 17 115/53 06/01/18 20:00 97.8 F 68 17 105/61 06/01/18 18:25 72 18 89/58 06/01/18 17:37 97.8 F 06/01/18 17:00 51 L 18 94/68 06/01/18 16:20 52 L 13 103/61 06/01/18 16:00 51 L 18 93/62 06/01/18 15:30 58 L 18 108/60 06/01/18 15:15 58 L 18 96/69 06/01/18 15:00 61 18 96/69 06/01/18 14:22 97.4 F L 61 20 94/62 Pulse Ox 06/02/18 08:00 96 06/02/18 03:48 95 06/01/18 23:43 94 L 06/01/18 20:00 99 06/01/18 18:25 98 06/01/18 17:37 06/01/18 17:00 97 06/01/18 16:20 100 06/01/18 16:00 98 06/01/18 15:30 97 06/01/18 15:15 96 06/01/18 15:00 92 L 06/01/18 14:22 97 Intake and Output 06/01/18 06/02/18 06/02/18 22:59 06:59 14:59 Intake Total 240 Balance 240 Intake: Oral 240 Other: Voiding Method Toilet Toilet # Voids 1 3 Weight 88.904 kg 88.8 kg Initial: Gen. appearance: Alert, oriented 3 in no apparent distress Head: Atraumatic normocephalic, normal inspection Eyes: PERRL, EOMI. absent: Scleral icterus, conjunctival injection, nystagmus, periorbital swelling. Ear nose and throat: Normal exam, mucous membranes moist Neck: Normal inspection. Absent tenderness, lymphadenopathy Respiratory: No increased work of breathing. Cardiovascular: Regular rate, normal rhythm GIabdominal: no guarding, no rigidity. Extremities: Moves all 4 extremities Neurological: Alert and oriented 3, cranial nerves II through XII intact, unilateral lateralizing weaknessleft upper extremity, no seizure activity noted on physical exam, slight pronator drift left upper extremity and no nystagmus, but does invoke blurry vision changes. Finger nose testing bilaterally invoke blurry vision changes and depth perception changes Strength: Left upper extremity 4 minus out of 5 Right upper extremity 4+ out of 5 Left lower extremity 5 out of 5 Right lower extremity 5 out of 5 Sensation: Equal and symmetrical in all 4 extremities Psychological: Mood and affect appropriate setting #2: 25 minutes post-initial Gen. appearance: Alert, oriented 3 in no apparent distress Head: Atraumatic normocephalic, normal inspection Eyes: PERRL, EOMI. absent: Scleral icterus, conjunctival injection, nystagmus, periorbital swelling. Ear nose and throat: Normal exam, mucous membranes moist Neck: Normal inspection. Absent tenderness, lymphadenopathy Respiratory: No increased work of breathing. Cardiovascular: Regular rate, normal rhythm GIabdominal: no guarding, no rigidity. Extremities: Moves all 4 extremities Neurological: Alert and oriented 3, cranial nerves II through XII intact grossly intact however left upper perioral droop starting, left facial weakness very mild starting, left unilateral lateralizing weaknessleft upper extremity, no seizure activity noted on physical exam, left pronator drift increasing and no nystagmusvision changes still consistent with previous testing Finger-nose testing bilaterally unchanged and consistent with previous testing Strength: Left upper extremity 3+ out of 5 Right upper extremity 4+ out of 5 Left lower extremity 5+ out of 5 Right lower extremity 5+ out of 5 Psychological: Mood and affect appropriate setting Results - Laboratory Findings CBC and BMP: 06/01/18 14:42 06/02/18 08:07 Abnormal Lab Findings: Abnormal Labs 06/01/18 06/01/18 06/01/18 14:42 14:42 14:42 Hct 49.0 H MCV 106.6 H RDW 16.2 H Chloride BUN 35 H Creatinine 1.32 H Magnesium 2.4 H Total Bilirubin 1.9 H Troponin I 0.038 H* LDL Cholesterol, Calc Ur Leukocyte Esterase 06/01/18 06/01/18 06/02/18 15:31 20:33 02:49 Hct MCV RDW Chloride BUN Creatinine Magnesium Total Bilirubin Troponin I 0.037 H* LDL Cholesterol, Calc 111 H Ur Leukocyte Esterase Small H 06/02/18 08:07 Hct MCV RDW Chloride 112 H BUN 29 H Creatinine 1.19 H Magnesium Total Bilirubin Troponin I LDL Cholesterol, Calc Ur Leukocyte Esterase Assessment and Plan (1) CVA (cerebral vascular accident) Current Visit: Yes Status: Acute Code(s): I63.9 - CEREBRAL INFARCTION, UNSPECIFIED SNOMED Code(s): 899522085 (2) Dysarthria due to acute cerebellar cerebrovascular accident (CVA) Current Visit: Yes Status: Acute Code(s): I63.9 - CEREBRAL INFARCTION, UNSPECIFIED; R47.1 - DYSARTHRIA AND ANARTHRIA SNOMED Code(s): 6810695 (3) Left arm weakness Current Visit: Yes Status: Acute Code(s): R29.898 - OTH SYMPTOMS AND SIGNS INVOLVING THE MUSCULOSKELETAL SYSTEM SNOMED Code(s): 053508730 (4) Weakness on left side of face Current Visit: Yes Status: Acute Code(s): R29.810 - FACIAL WEAKNESS SNOMED Code(s): 386807341 (5) Ataxia Current Visit: Yes Status: Acute Code(s): R27.0 - ATAXIA, UNSPECIFIED SNOMED Code(s): 05405580 Plan: Patient was examined by provider and vascular surgery was on the floor at the time. Provider discussed patient's carotid status with vascular provider (Dr. Grace) and was notified by her nurse the patient's physical exam findings were deteriorating. Provider reassess patient, notified optical glass silverer and code stroke was called. Remote neurologist (Dr Boles) reviewed findings and noted no occlusion of the carotid on the right ICA and recommended transfer to a higher level of care for MRI evaluation and further treatment. No medication changes were recommended. Does appear that the patient is having an evolving stroke at this time. Patient symptoms are increasing with regard to left perioral facial droop, left upper extremity weakness, gait ataxia and dysarthria. See physical exam findings as noted for evolving changes. Patient will remain on Elliquis. Patient's BUN and creatinine have improved based on his recent BUN and creatinine testing for future imaging however they are still elevated. Patient takes significant rheumatological medications for rheumatological disorders which may be impacting the BUN and creatinine results. Drip Box Tender to facilitate transfer at this time the [facility]. Status: Patient to be transferred to [facility] I discussed the patients history, physical exam, diagnostic testing, lab work and imaging with Dr Londono prior to implementing the plan above. He agrees with the plan as implemented prior to implementation.
--- NOTE | 2018-06-02 12:32 | P.DS ---
Providers Date of admission: 06/01/18 16:25 Attending physician: Arianna Corey Consults: 06/01/18 16:26 Consult Physician Routine Consulting Provider: Mariluz Londono Consult Reason/Comments: CVA Do you want consulting provider notified?: Yes Consult Physician Routine Consulting Provider: Aquiles Simons Consult Reason/Comments: Elevated troponin, history of CAD Do you want consulting provider notified?: Yes [facility]: Refer to my HPI for further details Patient Condition at Discharge: Stable Plan - Discharge Summary Discharge Rx Participant: No New Discharge Prescriptions: No Action Folic Acid 1 mg PO QAM [place]-3 Fatty Acids/Fish Oil [Fish Oil 1,000 mg Softgel] 1,000 mg PO DAILY traMADol HCL [Ultram] 50 mg PO Q6H PRN PRN Reason: Pain amLODIPine [Norvasc] 5 mg PO DAILY Methotrexate Sodium [Methotrexate] 25 mg PO WE Losartan [Cozaar] 100 mg PO DAILY Levothyroxine Sodium [Synthroid] 50 mcg PO DAILY Apixaban [Eliquis] 5 mg PO BID #90 tab Metoprolol Succinate (ER) [Toprol XL] 25 mg PO DAILY #30 tab.er.24h PARoxetine [Paxil] 10 mg PO DAILY Tofacitinib Citrate [Xeljanz Xr] 11 mg PO DAILY Discharge Medication List Folic Acid 1 mg PO QAM 11/18/14 [History] [place]-3 Fatty Acids/Fish Oil [Fish Oil 1,000 mg Softgel] 1,000 mg PO DAILY 07/11 [History] traMADol HCL [Ultram] 50 mg PO Q6H PRN 07/11/16 [History] amLODIPine [Norvasc] 5 mg PO DAILY 04/04/17 [History] Losartan [Cozaar] 100 mg PO DAILY 05/25/17 [History] Methotrexate Sodium [Methotrexate] 25 mg PO WE 05/25/17 [History] Levothyroxine Sodium [Synthroid] 50 mcg PO DAILY 09/01/17 [History] Apixaban [Eliquis] 5 mg PO BID #90 tab 09/04/17 [Rx] Metoprolol Succinate (ER) [Toprol XL] 25 mg PO DAILY #30 tab.er.24h 09/04/17 [Rx ] PARoxetine [Paxil] 10 mg PO DAILY 06/01/18 [History] Tofacitinib Citrate [Xeljanz Xr] 11 mg PO DAILY 06/01/18 [History] Follow up Appointment(s)/Referral(s): Puja Cox III, MD [Primary Care Provider] - 1-2 days
--- NOTE | 2018-06-02 12:32 | P.HPIM ---
History of Present Illness 71-year-old pleasant female came in with compensative dysarthria and speech problems on and off has been going on for last 3 days. Patient today has worse dysarthria compared to yesterday and increased weakness in the left arm along with some facial droop towards the right side. She had a CAT scan of the brain which showed old lacunar stroke in the right caudate nucleus. Patient had a carotid Doppler which showed moderate to severe carotid stenosis. Patient denied any fever chills nausea vomiting. Patient was severely hypotensive yesterday in spite of strokelike symptoms with systolic blood pressure of 90 patient is on 2 blood pressure medications ALESIA inhibitor and beta hira dose of one of these medications was recently decreased and these medications were discontinued yesterday. Patient is on anti-coagulation with Eliquis for pulmonary embolism that she had recently month of August which appears to be on for stated DVT. Patient also has chronic catheterization at the time which did not show any 10 table atherosclerotic coronary vascular disease. Patient during this hospital physician found to have elevated creatinine which is acute renal failure with creatinine of 1.3 to secondary to low blood pressure and a synovator both of which are held and now improved with creatinine going down to 1.19. Patient was evaluated by neurology and vascular surgery. Neurology is recommending transfer to a higher level facility discussed with the neuro- cyber analyst and logan Hernandez who did not recommend any TPA but recommended transfer to a facility where an MRI can be obtained along with MRA which is presently not available in this hospital. Patient is presently on aspirin as well. Neurology believe that this is stroke and evaluation. Discussed the case with the ER physician at [facility] who accepted the patient and patient will be transferred to [facility]. Agents present stroke it appears to be on the right frontoparietal cortex involving the Broca's area and superolateral surface primary motor cortex affecting the speech in the middle cerebral artery territory probably ischemic in nature. Review of Systems REVIEW OF SYSTEMS: CONSTITUTIONAL: No fever, no malaise, no fatigue. HEENT: No recent visual problems or hearing problems. Denied any sore throat. CARDIOVASCULAR: No chest pain, orthopnea, PND, no palpitations, no syncope. PULMONARY: No shortness of breath, no cough, no hemoptysis. GASTROINTESTINAL: No diarrhea, no nausea, no vomiting, no abdominal pain. NEUROLOGICAL: No headaches HEMATOLOGICAL: Denies any bleeding or petechiae. GENITOURINARY: Denies any burning micturition, frequency, or urgency. MUSCULOSKELETAL/RHEUMATOLOGICAL: Denies any joint pain, swelling, or any muscle pain. ENDOCRINE: Denies any polyuria or polydipsia. The rest of the 14-point review of systems is negative. Past Medical History Past Medical History: Cancer, CVA/TIA, Hypertension, Osteoarthritis (OA), Rheumatoid Arthritis (RA), Thyroid Disorder Additional Past Medical History / Comment(s): small cancerous lump removed from breast. Did not need radiation or chemo. History of Any Multi-Drug Resistant Organisms: None Reported Past Surgical History: Bariatric Surgery, Breast Surgery, Cholecystectomy, Hernia Repair, Tonsillectomy, Tubal Ligation Additional Past Surgical History / Comment(s): Left Breast Biopsy. TOTAL LT KNEE, R total knee. Colonoscopies, right cataract removal Past Anesthesia/Blood Transfusion Reactions: No Reported Reaction Past Psychological History: No Psychological Hx Reported Smoking Status: Former smoker Past Alcohol Use History: None Reported Additional Past Alcohol Use History / Comment(s): former smoker 10yrs, <1 PPD, quit 40 years ago. Past Drug Use History: None Reported - Past Family History Brother(s) Family Medical History: Cancer Sister(s) Family Medical History: Cancer Additional Family Medical History / Comment(s): Lymphoma Medications and Allergies Home Medications Medication Instructions Recorded Confirmed Type Folic Acid 1 mg PO QAM 11/18/14 06/01/18 History [place]-3 Fatty Acids/Fish Oil [Fish 1,000 mg PO DAILY 07/11/16 06/01/18 History Oil 1,000 mg Softgel] traMADol HCL [Ultram] 50 mg PO Q6H PRN 07/11/16 06/01/18 History amLODIPine [Norvasc] 5 mg PO DAILY 04/04/17 06/01/18 History Losartan [Cozaar] 100 mg PO DAILY 05/25/17 06/01/18 History Methotrexate Sodium [Methotrexate] 25 mg PO WE 05/25/17 06/01/18 History Levothyroxine Sodium [Synthroid] 50 mcg PO DAILY 09/01/17 06/01/18 History Apixaban [Eliquis] 5 mg PO BID #90 tab 09/04/17 06/01/18 Rx Metoprolol Succinate (ER) [Toprol 25 mg PO DAILY #30 tab.er.24h 09/04/17 Rx XL] PARoxetine [Paxil] 10 mg PO DAILY 06/01/18 06/01/18 History Tofacitinib Citrate [Xeljanz Xr] 11 mg PO DAILY 06/01/18 06/01/18 History Allergies Allergy/AdvReac Type Severity Reaction Status Date / Time adhesive tape AdvReac skin peels Uncoded 06/01/18 14:25 Physical Exam Vitals: Vital Signs Temp Pulse Pulse Resp BP BP BP 06/02/18 08:00 98.2 F 72 14 93/57 06/02/18 03:48 98.1 F 56 L 18 127/58 06/01/18 23:43 97.2 F L 59 L 17 115/53 06/01/18 20:00 97.8 F 68 17 105/61 06/01/18 18:25 72 18 89/58 06/01/18 17:37 97.8 F 06/01/18 17:00 51 L 18 94/68 06/01/18 16:20 52 L 13 103/61 06/01/18 16:00 51 L 18 93/62 06/01/18 15:30 58 L 18 108/60 06/01/18 15:15 58 L 18 96/69 06/01/18 15:00 61 18 96/69 06/01/18 14:22 97.4 F L 61 20 94/62 Pulse Ox 06/02/18 08:00 96 06/02/18 03:48 95 06/01/18 23:43 94 L 06/01/18 20:00 99 06/01/18 18:25 98 06/01/18 17:37 06/01/18 17:00 97 06/01/18 16:20 100 06/01/18 16:00 98 06/01/18 15:30 97 06/01/18 15:15 96 06/01/18 15:00 92 L 06/01/18 14:22 97 Intake and Output 06/01/18 06/02/18 06/02/18 22:59 06:59 14:59 Intake Total 240 Balance 240 Intake: Oral 240 Other: Voiding Method Toilet Toilet # Voids 1 3 Weight 88.904 kg 88.8 kg PHYSICAL EXAMINATION: GENERAL: The patient is alert and oriented x3, not in any acute distress. Well developed, well nourished. HEENT: Pupils are round and equally reacting to light. EOMI. No scleral icterus. No conjunctival pallor. Normocephalic, atraumatic. No pharyngeal erythema. No thyromegaly. CARDIOVASCULAR: S1 and S2 present. No murmurs, rubs, or gallops. PULMONARY: Chest is clear to auscultation, no wheezing or crackles. ABDOMEN: Soft, nontender, nondistended, normoactive bowel sounds. No palpable organomegaly. MUSCULOSKELETAL: No joint swelling or deformity. EXTREMITIES: No cyanosis, clubbing, or pedal edema. NEUROLOGICAL: She does have significant motor or speech defect with slurred speech along with 4/5 strength in the left upper extremity and some facial droop towards the right side. Left leg strength is within normal limits. For rest of the neurological exam please refer to neurologist dictation SKIN: No rashes. Results CBC & Chem 7: 06/01/18 14:42 06/02/18 08:07 Labs: Abnormal Lab Results - Last 24 Hours (Table) 06/01/18 06/01/18 06/01/18 Range/Units 14:42 14:42 14:42 Hct 49.0 H (34.0-46.0) % MCV 106.6 H (80.0-100.0) fL RDW 16.2 H (11.5-15.5) % Chloride (98-107) mmol/L BUN 35 H (7-17) mg/dL Creatinine 1.32 H (0.52-1.04) mg/dL Magnesium 2.4 H (1.6-2.3) mg/dL Total Bilirubin 1.9 H (0.2-1.3) mg/dL Troponin I 0.038 H* (0.000-0.034) ng/mL LDL Cholesterol, Calc (0-99) mg/dL Ur Leukocyte Esterase (Negative) 06/01/18 06/01/18 06/02/18 Range/Units 15:31 20:33 02:49 Hct (34.0-46.0) % MCV (80.0-100.0) fL RDW (11.5-15.5) % Chloride (98-107) mmol/L BUN (7-17) mg/dL Creatinine (0.52-1.04) mg/dL Magnesium (1.6-2.3) mg/dL Total Bilirubin (0.2-1.3) mg/dL Troponin I 0.037 H* (0.000-0.034) ng/mL LDL Cholesterol, Calc 111 H (0-99) mg/dL Ur Leukocyte Esterase Small H (Negative) 06/02/18 Range/Units 08:07 Hct (34.0-46.0) % MCV (80.0-100.0) fL RDW (11.5-15.5) % Chloride 112 H (98-107) mmol/L BUN 29 H (7-17) mg/dL Creatinine 1.19 H (0.52-1.04) mg/dL Magnesium (1.6-2.3) mg/dL Total Bilirubin (0.2-1.3) mg/dL Troponin I (0.000-0.034) ng/mL LDL Cholesterol, Calc (0-99) mg/dL Ur Leukocyte Esterase (Negative) Thrombosis Risk Factor Assmnt - Choose All That Apply Any of the Below Risk Factors Present?: Yes Each Factor Represents 1 point: Obesity (BMI >25) Other Risk Factors: Yes Each Risk Factor Represents 2 Points: Age 61-74 years, Malignancy Thrombosis Risk Factor Assessment Total Risk Factor Score: 5 Thrombosis Risk Factor Assessment Level: High Risk Assessment and Plan Plan: Acute ischemic stroke probably evolving stroke involving above-mentioned area. Patient will be continued on antiplatelet therapy and anticoagulation will be transferred to a level facility for further workup. LDL is 111. -Minimal troponin elevation of 0.038 second one being 0.0 [birth year]1930 0.033 which is probably secondary to acute renal failure rather than myocardial infraction patient doesn't have any symptoms of chest pain EKG did not show any significant changes. -Coronary artery disease recent cardiac catheterization of August which did not show any syncopal atherosclerotic vascular disease although there is heavily calcified LAD was seen there is also mild to moderate nonobstructive disease involving the proximal and mid LAD. RCA was a dominant vessel and was also heavily calcified in its midportion and there is moderate stenosis at that time. This can he catheterization report is from august this year. EKG showed some nonspecific ST-T wave changes in anterior leads which were also present during her previous hospitalization and patient will benefit from an echocardiogram. -Recent pulmonary embolism on for stated DVT patient is on anticoagulation with Eliquis. -Acute renal failure improving with IV fluids secondary to losartan and hypotension patient is also on amlodipine which was discontinued as well. -Hypertension: Management as mentioned above patient is presently hypotensive in spite of possible stroke -Hypothyroidism -History of breast cancer with a small cancerous lump removed from the breast in the past. Patient will be transferred to higher level facility for further workup and treatment.
[2018-06-02 13:25] VITALS: BP 146/75; RESP 16
--- NOTE | 2018-06-02 14:45 | P.CRDCN ---
History of Present Illness Consult date: 06/02/18 Reason for Consult (text): elevated troponin, history of CAD History of present illness: This is a 73-year-old female patient of Dr. Cardoso with past medical history of hypertension, rheumatoid arthritis, thyroid disorder. She had a heart catheterization in August 2017 that showed heavily calcified coronaries with mild coronary artery disease involving LAD and moderate area of stenosis in the right coronary artery. echocardiogram at that time showed moderate concentric left hypertrophy, EF 65-70%, mild aortic stenosis, mild mitral regurgitation, mild tricuspid regurgitation.CTA of the thoracic and abdominal aorta revealed bilateral neural occlusive pulmonary emboli with CT evidence suggesting right heart strain. Abdomen pelvis showed no acute process.patient has been on eliquis. Patient has history that started having slurred speech about Sunday which progressively worsened.she is also had some left upper extremity weakness. Patient states that her symptoms are slightly worse and she arrived. The patient was admitted to selective care unit and seen by neurology. Arrangements are being made for patient to transfer to [facility] EKG reveals sinus mechanism withno ST elevation or depression. Chest x-ray reveals mild pulmonary fibrosis. No heart failure. New one centimeter nodular density in the right upper lobe. CT of the brain shows cerebral atrophy. Old lacunar infarct right caudate nucleus. No change. carotid Doppler shows moderate to severe plaque bilaterally cannot exclude new significant stenosis in the right internal carotid artery. Laboratory data review: WBC 5, hemoglobin 15.4, platelets 178, sodium 141, potassium 4.7, creatinine 1.16 , cardiac enzymes 0.038, 0.037, 0.033.triglycerides 105, cholesterol 188, LDL 111, HDL 56. Current cardiac medications include Toprol-XL 25 mg daily, eliquis 5 mg twice daily. At the time of my exam: CONSTITUTIONAL: Denies fever. Denies chills. EYES: Denies blurred vision. Denies vision changes. Denies eye pain. EARS, NOSE, MOUTH & THROAT: Denies headache. Denies sore throat. Denies ear pain. CARDIOVASCULAR: Denies chest pain. Denies shortness of breath. Denies orthopnea. Denies PND. Denies palpitations. RESPIRATORY: Denies cough. GASTROINTESTINAL: Denies abdominal pain. Denies diarrhea. Denies constipation. Denies nausea. Denies vomiting. MUSCULOSKELETAL: Denies myalgias. Complains of pain to the left elbow. INTEGUMENTARY: Denies pruitis. Denies rash. NEUROLOGIC: Denies numbness. Denies tingling. reports slurred speech, reports left-sided weakness. PSYCHIATRIC: Denies anxiety. Denies depression. ENDOCRINE: Denies fatigue. Denies weight change. Denies polydipsia. Denies polyurina. GENITOURINARY: Denies burning, hematuria or urgency with micturation. HEMATOLOGIC: Denies history of anemia. Denies bleeding. Blood pressure 146/75, heart rate 58, afebrile, maintaining oxygen saturation on room air. GENERAL: This is a 73-year-old female in no apparent distress at the time of my examination. HEENT: Head is atraumatic, normocephalic. Pupils are equal, round. Sclerae anicteric. Conjunctivae are clear. Mucous membranes of the mouth are moist. Neck is supple. There is no jugular venous distention. No carotid bruit is heard. LUNGS: Clear to auscultation no wheezes, rales or rhonchi. No chest wall tenderness is noted on palpation or with deep breathing. HEART: Regular rate and rhythm without murmurs, rubs or gallops. S1 and S2 heard. ABDOMEN: Soft, nontender. Bowel sounds are heard. No organomegaly noted. EXTREMITIES: No evidence of lower extremity edema and no calf tenderness noted. VASCULAR: Radial and dorsalis pedis pulses palpated, no evidence of clubbing. NEUROLOGIC: Patient is awake, alert and oriented x3. noted slurred speech. Left hand kaiako kura kaupapa maori weak. Foot push pull equal bilaterally. ASSESSMENT elevated troponins not consistent with acute coronary syndrome. acute ischemic stroke probable evolving stroke History of coronary artery diseasewith heart catheterization in August 2017 as above. Hypertension History of pulmonary embolismon eliquis Rheumatoid arthritis PLAN An acute coronary event has been ruled out. echocardiogram ordered Patient is to be transferred to [facility] Thank you kindly for this consultation. Nurse Practitioner note has been reviewed, I agree with a documented findings and plan of care. Patient was seen and examined. Past Medical History Past Medical History: Cancer, CVA/TIA, Hypertension, Osteoarthritis (OA), Rheumatoid Arthritis (RA), Thyroid Disorder Additional Past Medical History / Comment(s): small cancerous lump removed from breast. Did not need radiation or chemo. History of Any Multi-Drug Resistant Organisms: None Reported Past Surgical History: Bariatric Surgery, Breast Surgery, Cholecystectomy, Hernia Repair, Tonsillectomy, Tubal Ligation Additional Past Surgical History / Comment(s): Left Breast Biopsy. TOTAL LT KNEE, R total knee. Colonoscopies, right cataract removal Past Anesthesia/Blood Transfusion Reactions: No Reported Reaction Past Psychological History: No Psychological Hx Reported Smoking Status: Former smoker Past Alcohol Use History: None Reported Additional Past Alcohol Use History / Comment(s): former smoker 10yrs, <1 PPD, quit 40 years ago. Past Drug Use History: None Reported - Past Family History Brother(s) Family Medical History: Cancer Sister(s) Family Medical History: Cancer Additional Family Medical History / Comment(s): Lymphoma Medications and Allergies Home Medications Medication Instructions Recorded Confirmed Type Folic Acid 1 mg PO QAM 11/18/14 06/01/18 History [place]-3 Fatty Acids/Fish Oil [Fish 1,000 mg PO DAILY 07/11/16 06/01/18 History Oil 1,000 mg Softgel] traMADol HCL [Ultram] 50 mg PO Q6H PRN 07/11/16 06/01/18 History Methotrexate Sodium [Methotrexate] 25 mg PO WE 05/25/17 06/01/18 History Levothyroxine Sodium [Synthroid] 50 mcg PO DAILY 09/01/17 06/01/18 History Apixaban [Eliquis] 5 mg PO BID #90 tab 09/04/17 06/01/18 Rx Metoprolol Succinate (ER) [Toprol 25 mg PO DAILY #30 tab.er.24h 09/04/17 Rx XL] PARoxetine [Paxil] 10 mg PO DAILY 06/01/18 06/01/18 History Tofacitinib Citrate [Xeljanz Xr] 11 mg PO DAILY 06/01/18 06/01/18 History Allergies Allergy/AdvReac Type Severity Reaction Status Date / Time adhesive tape AdvReac skin peels Uncoded 06/01/18 14:25 Physical Exam Vitals: Vital Signs Temp Pulse Pulse Resp BP BP BP 06/02/18 08:00 98.2 F 72 14 93/57 06/02/18 03:48 98.1 F 56 L 18 127/58 06/01/18 23:43 97.2 F L 59 L 17 115/53 06/01/18 20:00 97.8 F 68 17 105/61 06/01/18 18:25 72 18 89/58 06/01/18 17:37 97.8 F 06/01/18 17:00 51 L 18 94/68 06/01/18 16:20 52 L 13 103/61 06/01/18 16:00 51 L 18 93/62 06/01/18 15:30 58 L 18 108/60 06/01/18 15:15 58 L 18 96/69 06/01/18 15:00 61 18 96/69 06/01/18 14:22 97.4 F L 61 20 94/62 Pulse Ox 06/02/18 08:00 96 06/02/18 03:48 95 06/01/18 23:43 94 L 06/01/18 20:00 99 06/01/18 18:25 98 06/01/18 17:37 06/01/18 17:00 97 06/01/18 16:20 100 06/01/18 16:00 98 06/01/18 15:30 97 06/01/18 15:15 96 06/01/18 15:00 92 L 06/01/18 14:22 97 Intake and Output 06/01/18 06/02/18 06/02/18 22:59 06:59 14:59 Intake Total 240 Balance 240 Intake: Oral 240 Other: Voiding Method Toilet Toilet # Voids 1 3 Weight 88.904 kg 88.8 kg Results 06/01/18 14:42 06/02/18 08:07 Cardiac Enzymes 06/01/18 06/01/18 06/01/18 Range/Units 14:42 14:42 20:33 AST 34 (14-36) U/L CK-MB (CK-2) 0.8 (0.0-2.4) ng/mL Troponin I 0.038 H* 0.037 H* (0.000-0.034) ng/mL 06/02/18 Range/Units 02:49 AST (14-36) U/L CK-MB (CK-2) (0.0-2.4) ng/mL Troponin I 0.033 (0.000-0.034) ng/mL Coagulation 06/01/18 Range/Units 14:42 PT 10.0 (9.0-12.0) sec APTT 23.2 (22.0-30.0) sec Lipids 06/02/18 Range/Units 02:49 Triglycerides 105 (<150) mg/dL Cholesterol 188 (<200) mg/dL HDL Cholesterol 56 (40-60) mg/dL CBC 06/01/18 Range/Units 14:42 WBC 5.0 (3.8-10.6) k/uL RBC 4.60 (3.80-5.40) m/uL Hgb 15.4 (11.4-16.0) gm/dL Hct 49.0 H (34.0-46.0) % Plt Count 178 (150-450) k/uL Comprehensive Metabolic Panel 06/01/18 06/02/18 Range/Units 14:42 08:07 Sodium 139 141 (137-145) mmol/L Potassium 5.1 4.7 (3.5-5.1) mmol/L Chloride 106 112 H (98-107) mmol/L Carbon Dioxide 25 26 (22-30) mmol/L BUN 35 H 29 H (7-17) mg/dL Creatinine 1.32 H 1.19 H (0.52-1.04) mg/dL Glucose 97 90 (74-99) mg/dL Calcium 9.5 8.9 (8.4-10.2) mg/dL AST 34 (14-36) U/L ALT 23 (9-52) U/L Alkaline Phosphatase 43 (38-126) U/L Total Protein 6.8 (6.3-8.2) g/dL Albumin 3.9 (3.5-5.0) g/dL Current Medications Generic Name Dose Route Start Last Admin Trade Name Freq PRN Reason Stop Dose Admin Apixaban 5 mg 06/01/18 21:00 06/02/18 09:29 Eliquis PO 5 mg BID RUPERT Administration Aspirin 325 mg 06/02/18 16:27 Aspirin PO DAILY RUPERT Sodium Chloride 1,000 mls @ 100 mls/hr 06/01/18 16:15 06/02/18 09:29 Saline 0.9% IV 100 mls/hr .Q10H RUPERT Administration Sodium Chloride 1,000 mls @ 100 mls/hr 06/01/18 16:30 06/02/18 04:18 Saline 0.9% IV Not Given .Q10H RUPERT Levothyroxine Sodium 50 mcg 06/02/18 06:30 06/02/18 06:50 Synthroid PO 50 mcg DAILY@0630 RUPERT Administration Methotrexate 25 mg 06/05/18 09:00 Methotrexate PO WE RUPERT Metoprolol Succinate 25 mg 06/02/18 09:00 06/02/18 09:29 Toprol Xl PO Not Given DAILY RUPERT Xeljanz Xr 11mg 11 mg 06/02/18 09:00 06/02/18 09:19 PO Not Given DAILY RUPERT Paroxetine HCl 10 mg 06/02/18 09:00 06/02/18 09:29 Paxil PO 10 mg DAILY RUPERT Administration Tramadol HCl 50 mg 06/01/18 20:37 Ultram PO Q6H PRN Pain Intake and Output 06/01/18 06/02/18 06/02/18 22:59 06:59 14:59 Intake Total 240 Balance 240 Intake: Oral 240 Other: Voiding Method Toilet Toilet # Voids 1 3 Weight 88.904 kg 88.8 kg 06/01/18 14:42 06/02/18 08:07
[2018-06-02] MEDS ORDERED: ASPIRIN 325 MG TAB PO SCH (16:27)
[2018-06-05] MEDS ORDERED: METHOTREXATE SODIUM 2.5 MG TAB PO SCH (09:00)
== END 2018-06-02 13:16 | disposition other institution (70) ==
LOC: EC 14:14 → 3SCARD 16:25
PROVIDERS: ADMIT Internal Medicine; ATTEND Internal Medicine
DX: I63.9 Cerebral infarction, unspecified (principal); I10 Essential (primary) hypertension; R79.89 Other specified abnormal findings of blood chemistry; N17.9 Acute kidney failure, unspecified; R47.1 Dysarthria and anarthria; R07.89 Other chest pain; R29.810 Facial weakness; R27.0 Ataxia, unspecified; R47.81 Slurred speech; I25.10 Atherosclerotic heart disease of native coronary artery without angina pectoris; I25.84 Coronary atherosclerosis due to calcified coronary lesion; I65.29 Occlusion and stenosis of unspecified carotid artery; M19.90 Unspecified osteoarthritis, unspecified site; M06.9 Rheumatoid arthritis, unspecified; I95.9 Hypotension, unspecified; E03.9 Hypothyroidism, unspecified; Z86.711 Personal history of pulmonary embolism; Z86.73 Personal history of transient ischemic attack (TIA), and cerebral infarction without residual deficits; Z87.891 Personal history of nicotine dependence; Z85.3 Personal history of malignant neoplasm of breast; Z90.49 Acquired absence of other specified parts of digestive tract; Z80.7 Family history of other malignant neoplasms of lymphoid, hematopoietic and related tissues; Z79.899 Other long term (current) drug therapy; Z79.890 Hormone replacement therapy; Z79.01 Long term (current) use of anticoagulants; Z91.048 Other nonmedicinal substance allergy status; E66.9 Obesity, unspecified; Z68.38 Body mass index [BMI] 38.0-38.9, adult
CPT/HCPCS: 96360; 96361; 99285; 36415; 93005; 80061; 80053; 80048; 82550; 82553; 83605; 83735; 84484 ×2; 85025; 85610; 85730; 81001; 87040; 83090; 71046; 93880; 70450; G0378 ×2

== ENCOUNTER → 2021-06-27 | Outpatient (CLI) | payer MEDICARE ==
[2021-06-27 21:03] LABS: ALT 19 U/L (8-44); AST 21 U/L (13-35); African American GFR (CKD) 41.8 (60.0-200.0); Albumin 3.5 g/dL (3.8-4.9); Albumin/Globulin Ratio 1.08 (1.60-3.17); Alkaline Phosphatase 68 U/L (41-126); BUN/Creat Ratio 16.55 Ratio (12.00-20.00); Blood Urea Nitrogen 23.5 mg/dL (9.0-27.0); Calcium 9.4 mg/dL (8.7-10.3); Carbon Dioxide 27.9 mmol/L (20.0-27.5); Chloride 101 mmol/L (96-109); Chol/HDL Ratio 2.06 Ratio; Globulin 3.2 g/dL (1.6-3.3); Glucose 88 mg/dL (70-110); LDL Cholesterol,Calculated 52.6 mg/dL (0.0-131.0); Potassium 4.6 mmol/L (3.5-5.5); Sodium 144 mmol/L (135-145); Total Protein 6.7 g/dL (6.2-8.2); VLDL Calculation 18.86 mg/dL (5.00-40.00)
== END | disposition home or self-care (01) ==
LOC: LABWHC1 14:22
PROVIDERS: ATTEND Internal Medicine Clinical Cardiac Electrophysiology
DX: E78.5 Hyperlipidemia, unspecified (principal); I10 Essential (primary) hypertension; I48.0 Paroxysmal atrial fibrillation
CPT/HCPCS: 36415; 80053; 80061; 84443

== ENCOUNTER → 2021-07-05 | Outpatient (CLI) | payer MEDICARE ==
[2021-07-05 17:55] LABS: HGB 13.2 g/dL (12.0-15.0); MCH 25.2 pg (27.0-32.0); MCHC 28.1 g/dL (32.0-37.0); MCV 89.9 fL (80.0-97.0); Mean Platelet Volume 9.8 fL (9.5-12.2); Platelet Count 174 X 10*3/uL (140-440); RBC 5.23 X 10*6/uL (4.10-5.20); RDW 21.5 % (11.5-14.5); WBC 6.16 X 10*3/uL (4.50-10.00)
[2021-07-05 19:32] LABS: African American GFR (CKD) 34.6 (60.0-200.0); Anion Gap 14.3 mmol/L (10.00-18.00); Blood Urea Nitrogen 23.9 mg/dL (9.0-27.0); Carbon Dioxide 21.4 mmol/L (20.0-27.5); Non-African American GFR(CKD) 29.8 (60.0-200.0); Potassium 4.7 mmol/L (3.5-5.5)
== END | disposition home or self-care (01) ==
LOC: LABPAT 11:26
PROVIDERS: ATTEND Internal Medicine Clinical Cardiac Electrophysiology
DX: Z01.812 Encounter for preprocedural laboratory examination (principal); I48.19 Other persistent atrial fibrillation
CPT/HCPCS: 80051; 82565; 84520; 85027; U0003

== ENCOUNTER 2021-07-08 08:29 | Day surgery (SDC) | payer MEDICARE ==
[2021-07-05 13:53] VITALS: BMI 32.8
[~2021-07-08 08:29] MED LIST changes: -LACTATED RINGERS 1,000 ML IV SCH; +SODIUM CHLORIDE 0.9% 1,000 ML IV SCH
[2021-07-08] MEDS ORDERED: SODIUM CHLORIDE 0.9% 500 ML 500 ML IV ONE (08:41)
[2021-07-08 08:59] VITALS: RESP 16; TEMP 97.7
[2021-07-08] MEDS ORDERED: LIDOCAINE 1% INJ 10MG/ML (20 ML MDV) ONE (09:38)
[2021-07-08] MEDS ORDERED: PROPOFOL 10 MG/ML 20 ML VIAL IV ONE (09:38)
[2021-07-08] MEDS ORDERED: PHENYLEPHRINE-0.9% NACL SYG 1,000 MCG/10 ML SYRINGE ONE (09:38)
--- NOTE | 2021-07-08 10:08 | P.EPPROC ---
- EP Procedure Note Electrophysiology Procedure Note: Diagnosis Persistent atrial fibrillation, symptomatic on ELIQUIS Patient on flecainide 50 mrem twice daily and beta blockers Procedure Successful electrical cardioversion with a 200 J biphasic shock in the AP configuration to sinus rhythm Plan Continue anticoagulation other cardiac medications including 100 and drip therapy Consider A. fib ablation in the future
[2021-07-08 14:59] VITALS: PULSE 66
[2021-07-08 15:04] VITALS: BP 120/59
== END 2021-07-08 11:43 | disposition home or self-care (01) ==
LOC: CATHCVL 08:29
PROVIDERS: ATTEND Internal Medicine Clinical Cardiac Electrophysiology
DX: I48.19 Other persistent atrial fibrillation (principal)
CPT/HCPCS: 92960; J2001; J2370; J2704

== ENCOUNTER 2021-08-18 09:51 | Day surgery (SDC) | payer MEDICARE ==
[2021-08-16 14:51] VITALS: BMI 31.5
[~2021-08-18 09:51] MED LIST changes: +HYDROmorphone 0.5 MG/0.5 ML SYRINGE IVP PRN; +LACTATED RINGERS 1,000 ML IV SCH; +MIDAZOLAM 2 MG/2 ML VIAL IV PRN
[2021-08-18] MEDS ORDERED: SODIUM CHLORIDE 0.9% 1,000 ML IV ONE (10:09)
[2021-08-18 11:07] LABS: Calcium 9.1 mg/dL (8.4-10.2)
[2021-08-18 11:15] LABS: Anisocytosis Slight; HGB 14.4 gm/dL (11.4-16.0); Hypochromasia Marked; MCH 26.8 pg (25.0-35.0); MCHC 30.7 g/dL (31.0-37.0); MCV 87.5 fL (80.0-100.0); Mean Platelet Volume 8.5; Platelet Count 156 k/uL (150-450); RBC 5.37 m/uL (3.80-5.40); WBC 5.4 k/uL (3.8-10.6)
[2021-08-18] MEDS ORDERED: fentaNYL (PF) 50 MCG/ML 2 ML AMP ONE (12:05)
[2021-08-18] MEDS ORDERED: LIDOCAINE 1% INJ 10MG/ML (20 ML MDV) ONE ×2 (12:05→12:32)
[2021-08-18] MEDS ORDERED: PROTAMINE SULFATE 10 MG/ML 5 ML VIAL IV ONE (12:05)
[2021-08-18] MEDS ORDERED: HEPARIN SODIUM,PORCINE 5,000 UNIT/ML 1 ML VIAL ONE (12:05)
[2021-08-18] MEDS ORDERED: PHENYLEPHRINE-0.9% NACL SYG 1,000 MCG/10 ML SYRINGE ONE (12:05)
[2021-08-18] MEDS ORDERED: SUCCINYLCHOLINE CHLORIDE 100 MG/5 ML SYR IV ONE (12:05)
[2021-08-18] MEDS ORDERED: ePHEDrine 50 MG/ML 1 ML VIAL ONE (12:05)
[2021-08-18] MEDS ORDERED: PROPOFOL 10 MG/ML 20 ML VIAL IV ONE (12:05)
[2021-08-18] MEDS ORDERED: MIDAZOLAM 2 MG/2 ML VIAL ONE (12:05)
[2021-08-18] MEDS ORDERED: HEPARIN SOD,PORK IN 0.45% NACL 25,000 UNIT in 0.45% NACL 1 250ML.BAG IV ONE (12:15)
[2021-08-18] MEDS ORDERED: HEPARIN SODIUM (1,000 UNIT/ML) 1,000 UNIT in SODIUM CHLORIDE 0.9% 1,000 ML IRRIGATION ONE (12:27)
[2021-08-18 12:35] LABS: Eosinophils # (M) 0.27 k/uL (0-0.7); Lymphocytes # (M) 2.43 k/uL (1.0-4.8); Monocytes # (M) 0.32 k/uL (0-1.0); Neutrophils # (M) 2.38 k/uL (1.3-7.7); Neutrophils % (M) 44 %; Nucleated Red Blood Cells 0 /100 WBC (0-0); Total Cells Counted 100
[2021-08-18] MEDS ORDERED: LIDOCAINE 1% INJ 10MG/ML (20 ML MDV) SQ ONE (12:55)
[2021-08-18] MEDS ORDERED: IOPAMIDOL-370 100ML BTL INJ ONE (15:17)
[2021-08-18] MEDS ORDERED: SODIUM CHLORIDE 0.9% 500 ML 500 ML IV ONE (15:28)
--- NOTE | 2021-08-18 15:40 | P.HPCAR ---
History of Present Illness This is Dr. Muniz dictating a consult on this patient The patient was interviewed and examined IMPRESSION / ASSESSMENT: Persistent atrial fibrillation Tiredness and fatigue Mild aortic stenosis Nonobstructive CAD with calcified coronary arteries Underlying sick sinus syndrome PLAN: A. fib ablation with pulmonary vein isolation and possible linear ablation HPI Patient continues to complain of tiredness and fatigue when she is in atrial fibrillation she has undergone electrical cardioversion and is on flecainide 50 mrem twice daily She has underlying sick sinus syndrome and ultimately I will try to take her off flecainide completely. She has nonobstructive CAD ROS: No fever chills or rigors, no cough, phlegm or expectoration, no nausea, vomiting or diarrhea, no hematuria, dysuria, no musculoskeletal complaints, no strokes or seizures, no skin lesions. EXAMINATION: Pulse rate in the 50s, blood pressure 130/58 mmHg pulse ox 99% Breath sounds are equal bilaterally no rhonchi no crackles No JVD Normal heart sounds normal S1 normal S2 Abdomen soft Eccentric is warm edema REVIEW OF LABS, ECG & MEDICAL DATA White count 10.8 thousand, hemoglobin 12.2, platelets 270,000 BMP to 23 Sodium 136, potassium 4.3 Physical Exam Vitals: Vital Signs Temp Pulse Resp BP Pulse Ox 08/18/21 10:39 98.2 F 55 L 16 130/58 99 Intake and Output 08/18/21 08/18/21 08/18/21 06:59 14:59 22:59 Intake Total 840 250 Balance 840 250 Intake: IV 840 250 Other: Weight 68.9 kg Past Medical History Past Medical History: CVA/TIA, Hypertension, Osteoarthritis (OA), Rheumatoid Arthritis (RA), Thyroid Disorder Additional Past Medical History / Comment(s): see Dr Muniz H&P, "several strokes-last one about 3 yrs ago"-no residual effects. History of Any Multi-Drug Resistant Organisms: None Reported Past Surgical History: Bariatric Surgery, Breast Surgery, Cholecystectomy, Hernia Repair, Joint Replacement, Tonsillectomy, Tubal Ligation Additional Past Surgical History / Comment(s): Left Breast Biopsy. elmer knee replacement, "stomach stapling". Colonoscopies, elmer cataract removal, recent cardioversion Past Anesthesia/Blood Transfusion Reactions: No Reported Reaction Smoking Status: Former smoker - Past Family History Brother(s) Family Medical History: Cancer Sister(s) Family Medical History: Cancer Additional Family Medical History / Comment(s): Lymphoma Physical Examination Vital Signs Temp Pulse Resp BP Pulse Ox 08/18/21 10:39 98.2 F 55 L 16 130/58 99 Intake and Output 08/18/21 08/18/21 08/18/21 06:59 14:59 22:59 Intake Total 840 250 Balance 840 250 Intake: IV 840 250 Other: Weight 68.9 kg Results 08/18/21 10:13 08/18/21 10:13 CBC 08/18/21 Range/Units 10:13 WBC 5.4 (3.8-10.6) k/uL RBC 5.37 (3.80-5.40) m/uL Hgb 14.4 (11.4-16.0) gm/dL Hct 47.0 H (34.0-46.0) % Plt Count 156 (150-450) k/uL Comprehensive Metabolic Panel 08/18/21 Range/Units 10:13 Sodium 138 (137-145) mmol/L Potassium 5.0 (3.5-5.1) mmol/L Chloride 106 (98-107) mmol/L Carbon Dioxide 28 (22-30) mmol/L BUN 31 H (7-17) mg/dL Creatinine 1.64 H (0.52-1.04) mg/dL Glucose 110 H (74-99) mg/dL Calcium 9.1 (8.4-10.2) mg/dL Current Medications Generic Name Dose Route Start Last Admin Trade Name Freq PRN Reason Stop Dose Admin Hydromorphone HCl 0.5 mg 08/18/21 07:00 Hydromorphone 0.5 Mg/0.5 Ml Syringe IVP 08/18/21 23:00 Q5M PRN Phase 1 or 2 - Pain Control Sodium Chloride 1,000 mls @ 20 mls/hr 08/18/21 06:29 Saline 0.9% IV 09/17/21 06:30 .Q24H RUPERT Lactated Ringer's 1,000 mls @ 20 mls/hr 08/18/21 06:29 Lactated Ringers IV 09/17/21 06:30 .Q24H RUPERT Midazolam HCl 2 mg 08/18/21 06:29 Midazolam 2 Mg/2 Ml Vial IV 08/18/21 20:00 ONCE PRN Pre-Op Anxiety Intake and Output 08/18/21 08/18/21 08/18/21 06:59 14:59 22:59 Intake Total 840 250 Balance 840 250 Intake: IV 840 250 Other: Weight 68.9 kg Patient Weight 08/19/21 06:59 Weight 68.9 kg 08/18/21 10:13 08/18/21 10:13
[2021-08-18] MEDS ORDERED: ACETAMINOPHEN TAB 325 MG TAB PO PRN (15:43)
[2021-08-18] MEDS ORDERED: traMADol 50 MG TAB PO PRN (15:46)
--- NOTE | 2021-08-18 16:11 | P.EPPROC ---
- EP Procedure Note Electrophysiology Procedure Note: PROCEDURE A. fib ablation, PVI, left septal ablation DIAGNOSIS Atrial fibrillation, symptomatic, refractory to therapy, persistent RESULT No left atrial appendage mass seen on intracardiac echo. Normal LV function Successful A. fib ablation/pulmonary vein isolation of all veins using cryo- ablation Large pulmonary veins, each branch was individually isolated with cryoablation Complete entrance block in all 4 veins confirmed Left septal ablation No evidence for phrenic nerve injury Esophageal deflection YES Inducible atrial tachycardia at the end of the procedure with straight pacing Electrical cardioversion of the inducible atrial tachycardia, post A. fib ablation with a synchronized shock across the chest PROCEDURE DETAILS Patient was brought to the EP lab in a fasting state after obtaining written informed consent. Procedure performed under general anesthesia Esophagus was intubated. Esophageal temperature monitoring with circa catheter. Esophageal deflection with an endoscope to avoid hypothermia of the esophagus. After initial muscle relaxant use, muscle relaxants were not given thereafter in order to assess phrenic nerve during procedure. Patient prepped and draped as per protocol Cryo ablation-set up with standard preparation of the cryoablation tools done. Femoral Venous access obtained on the right and left groins and sheaths placed Diagnostic catheters for the high right atrium, phrenic nerve stimulation and pacing, His bundle, coronary sinus placed Intracardiac echo catheter placed. Long sheath placed in the right atrium Left and right transseptal catheterization performed under intracardiac echo guidance. Intravenous heparin with aCT above 300 Later, catheter positioning and balloon positioning in the left atrium and pulmonary veins, under intracardiac echo guidance Diagnostic EP study with coronary sinus pacing and recording Baseline measurements: AH 110 HV 58 MS interval 221, QRS 138, QT 500 Sinus node recovery 605 100 ms were 721 and 703 ms. Likely sinus node entrance block With atrial pacing after completion of A. fib ablation, an atrial tachycardia was induced, cycle length 335 ms Electrical cardioversion of residual atrial tachycardia performed successfully Transseptal catheterization performed. This is a difficult transseptal procedure on account of cardiac rotation, clockwise RA pressure 9/4/7 LA pressure 26/7/15 Transseptal catheterization performed with standard sheath. The cryoablation sheath was then placed with an over the wire exchange without any acute complications. The cryoablation balloon was placed in the office of each pulmonary vein and all 4 pulmonary veins were isolated. IV dye was injected to confirm occlusion. Goal: achieve complete occlusion of the pulmonary vein, achieve -30 degrees C at 30 seconds and achieve -40 degrees C at 60 seconds and a time to effect of less than 60 seconds. If not, the balloon was repositioned to obtain this result After completion of Cryoblation with durations from 180-240 seconds, entrance block was confirmed with the Attain circular catheter in a roving fashion around the antrum of the pulmonary veins Phrenic nerve pacing was performed from the SVC, right innominate vein area and diaphragm voltage was monitored. Diaphragmatic contractions were also monitored manually for strength of contraction. At the end of the procedure the Achieve catheter was once again used to check for entrance block Phrenic nerve stimulation was performed to confirm diaphragmatic stimulation the end of the procedure The patient had very large pulmonary veins. Each pulmonary vein had had an early branching pattern and each was individually isolated Left septum was isolated Cine fluoroscopy was performed at the very end of the procedure to confirm movement of both diaphragms with inspiration and expiration At the end of the procedure the patient was extubated Venous sheaths were removed and hemostasis assured with a closure device PROCEDURES PERFORMED Diagnostic EP study CS pacing and recording Left and right transseptal catheterization Catheter the mapping of the tachycardia Intracardiac echocardiography Pulmonary vein isolation with transseptal and comprehensive EPS, [id number] Linear ablation, left atrium, +[id number] Electrical cardioversion with a synchronized shock across the chest 24900 Extended procedure
--- NOTE | 2021-08-18 16:15 | P.EPPROC ---
- EP Procedure Note Electrophysiology Procedure Note: This was a long procedure on account of #1 fairly extreme cardiac rotation, clockwise. It took longer than usual to achieve transseptal puncture and catheterization of the left atrium #2 large pulmonary veins with early branching pattern. The balloon would dive into the large pulmonary veins and therefore each branch of each vein was individually isolated This resulted in at least 8 cryo lesions rather than the usual for The left atrial septum was ablated and completely isolated
--- NOTE | 2021-08-18 16:16 | P.PRLE ---
RE: Alejandra Ram Dear Sabrina Roberts underwent in A. fib ablation with pulmonary vein isolation She had a large pulmonary veins that required a segmental approach for cryoablation She may have a residual atrial tachycardia that may need ablation in the future I would continue low-dose flecainide and anti-coagulation for now Thank you for entrusting me with the care of the patient Warm regards Sincerely Aniket Muniz
[2021-08-18] MEDS ORDERED: ACETAMINOPHEN IV (For NPO) 1,000 MG in EMPTY BAG 1 BAG IVPB ONE (16:30)
[2021-08-18] MEDS ORDERED: PRAVASTATIN SODIUM 80 MG TAB PO SCH (21:00)
[2021-08-18] MEDS: POTASSIUM CHLORIDE ER 10 MEQ TAB.ER.PRT PO SCH (21:03)
[2021-08-18] MEDS: FLECAINIDE 50 MG TAB PO SCH (21:03)
[2021-08-18] MEDS: APIXABAN 5 MG TAB PO SCH (21:03)
[2021-08-19] MEDS ORDERED: LEVOTHYROXINE 50 MCG TAB PO SCH (06:30)
[2021-08-19 07:35] VITALS: BP 97/61; PULSE 61; RESP 17; TEMP 97.9
[2021-08-19] MEDS: POTASSIUM CHLORIDE ER 10 MEQ TAB.ER.PRT PO SCH (08:24)
[2021-08-19] MEDS: FLECAINIDE 50 MG TAB PO SCH (08:24)
[2021-08-19] MEDS: APIXABAN 5 MG TAB PO SCH (08:24)
[2021-08-19] MEDS ORDERED: CITALOPRAM HYDROBROMIDE 10 MG TAB PO SCH (09:00)
[2021-08-19] MEDS ORDERED: METOPROLOL SUCCINATE (ER) 25 MG TAB.ER.24H PO SCH (09:00)
[2021-08-19] MEDS ORDERED: DULoxetine HCL 20 MG CAPSULE.DR PO SCH (09:00)
[2021-08-19] MEDS ORDERED: FUROSEMIDE 20 MG TAB PO SCH (09:00)
[2021-08-19] MEDS ORDERED: OXYBUTYNIN XL 5 MG TAB.ER.24 PO SCH (09:00)
[2021-08-19] MEDS ORDERED: amLODIPine 5 MG TAB PO SCH (09:00)
--- NOTE | 2021-08-22 20:28 | P.DS ---
Providers Attending physician: Aniket Muniz Primary care physician: Frank Hough MD Hospital Course: Patient is doing well from a cardiac standpoint No chest discomfort dizziness lightheadedness or palpitations Heart sounds are normal breath sounds are clear Vitals are stable Groins of healed well Impression Atrial fibrillation Status post cryoablation the pulmonary veins Ablation of the jose on the left side and septum on the right side of the left atrium No inducible atrial fibrillation thereafter Inducible atrial tachycardia 335 ms, Plan Watch for any atrial tachycardia in the future Continue anticoagulation Continue cardiac medications Patient Condition at Discharge: Stable Plan - Discharge Summary Discharge Rx Participant: No New Discharge Prescriptions: Continue traMADol HCL [Ultram] 50 mg PO Q6H PRN PRN Reason: Pain Levothyroxine Sodium [Synthroid] 50 mcg PO DAILY Apixaban [Eliquis] 5 mg PO BID #90 tab Metoprolol Succinate (ER) [Toprol XL] 25 mg PO DAILY #30 tab.er.24h amLODIPine [Norvasc] 5 mg PO DAILY DULoxetine HCL [Cymbalta] 20 mg PO DAILY Flecainide [Tambocor] 50 mg PO Q12HR Pravastatin Sodium 80 mg PO HS Lifitegrast [Xiidra] 1 dropper BOTH EYES BID Celecoxib [CeleBREX] 200 mg PO HS Citalopram Hydrobromide [CeleXA] 10 mg PO DAILY Furosemide [Lasix] 20 mg PO DAILY Oxybutynin Chloride 5 mg PO QAM Potassium Chloride [Klor-Con 10 ER] 10 meq PO BID Discharge Medication List traMADol HCL [Ultram] 50 mg PO Q6H PRN 07/11/16 [History] Levothyroxine Sodium [Synthroid] 50 mcg PO DAILY 09/01/17 [History] Apixaban [Eliquis] 5 mg PO BID #90 tab 09/04/17 [Rx] Metoprolol Succinate (ER) [Toprol XL] 25 mg PO DAILY #30 tab.er.24h 09/04/17 [Rx] Celecoxib [CeleBREX] 200 mg PO HS 07/05/21 [History] Citalopram Hydrobromide [CeleXA] 10 mg PO DAILY 07/05/21 [History] DULoxetine HCL [Cymbalta] 20 mg PO DAILY 07/05/21 [History] Flecainide [Tambocor] 50 mg PO Q12HR 07/05/21 [History] Furosemide [Lasix] 20 mg PO DAILY 07/05/21 [History] Lifitegrast [Xiidra] 1 dropper BOTH EYES BID 07/05/21 [History] Oxybutynin Chloride 5 mg PO QAM 07/05/21 [History] Potassium Chloride [Klor-Con 10 ER] 10 meq PO BID 07/05/21 [History] Pravastatin Sodium 80 mg PO HS 07/05/21 [History] amLODIPine [Norvasc] 5 mg PO DAILY 07/05/21 [History] Follow up Appointment(s)/Referral(s): Aniket Muniz MD [STAFF PHYSICIAN] - 1 Week (Follow Dr. Muniz/Светлана Barnett groin check) Patient Instructions/Handouts: Cardiac Ablation (DC), Electrophysiology Study (DC) Activity/Diet/Wound Care/Special Instructions: Post EP study - Ablation instructions 1. Keep access sites dry for 2 days. 2. No heavy lifting or straining for 2 days. 3. Avoid bending the hips repeatedly for 2 days. 4. You may go up and down stairs slowly Call if the following is noted 1. Bleeding, increasing swelling or pain at the access sites. 2. Increasing chest discomfort, especially upon taking a deep breath. 3. Increasing shortness of breath, at rest or with exertion. 4. Undue cough / phlegm 5. Difficulty or pain while swallowing. 6. Pain or change in color in the extremities. 7. Fever, chills, rigors. 8. Increasing headache or neurologic symptoms. 9. Dizziness, fainting, palpitations Continue ELIQUIS and all other medication Discharge Disposition: HOME SELF-CARE
== END 2021-08-19 11:43 | disposition home or self-care (01) ==
LOC: CATHEP 09:51 → 6NMEDSUR 15:27 → CATHEP 08-19 11:43
PROVIDERS: ATTEND Internal Medicine Clinical Cardiac Electrophysiology
DX: I48.91 Unspecified atrial fibrillation (principal); Z20.822 Contact with and (suspected) exposure to COVID-19; I25.10 Atherosclerotic heart disease of native coronary artery without angina pectoris; I49.5 Sick sinus syndrome; Z86.73 Personal history of transient ischemic attack (TIA), and cerebral infarction without residual deficits; I10 Essential (primary) hypertension; M19.90 Unspecified osteoarthritis, unspecified site; E07.9 Disorder of thyroid, unspecified; M06.9 Rheumatoid arthritis, unspecified; Z87.891 Personal history of nicotine dependence
CPT/HCPCS: 93656; 92960; 97162; 80048; 85025; 87635; C1894 ×2; C1769 ×4; C1760; C1730 ×2; C1759; C1893; C1733; C1766; J2250; J2720; J1644 ×2; J2001; J3010; J2370; J0330; J2704; Q9967

== ENCOUNTER 2022-06-04 15:01 | Emergency (ER) | payer MEDICARE ==
[2022-06-04 15:13] VITALS: BP 180/91; PULSE 78; RESP 22; TEMP 98.4
[2022-06-04] MEDS ORDERED: ACETAMINOPHEN TAB 325 MG TAB PO STA (15:48)
--- NOTE | 2022-06-04 15:48 | ED ---
General Adult HPI - General Chief complaint: Shortness of Breath Stated complaint: NASH Time Seen by Provider: 06/04/22 15:37 Source: patient, RN notes reviewed Mode of arrival: ambulatory Limitations: no limitations - History of Present Illness Initial comments: 77-year-old female with past medical history of hypertension and atrial fibrillation presents to the emergency department with chief complaint of shortness of breath. She notes she went [facility] last night feeling fine and woke up this morning with worsening shortness of breath, palpitations, weakness, and fatigue. She also reports a headache and runny nose. She denies known recent sick contacts. She was vaccinated against COVID and flu. She denies chest pain, nausea, vomiting, abdominal pain. - Related Data Home Medications Medication Instructions Recorded Confirmed traMADol HCL [Ultram] 50 mg PO Q6H PRN 07/11/16 08/18/21 Levothyroxine Sodium [Synthroid] 50 mcg PO DAILY 09/01/17 08/18/21 Celecoxib [CeleBREX] 200 mg PO HS 07/05/21 08/18/21 Citalopram Hydrobromide [CeleXA] 10 mg PO DAILY 07/05/21 08/18/21 DULoxetine HCL [Cymbalta] 20 mg PO DAILY 07/05/21 08/18/21 Flecainide [Tambocor] 50 mg PO Q12HR 07/05/21 08/18/21 Furosemide [Lasix] 20 mg PO DAILY 07/05/21 08/18/21 Lifitegrast [Xiidra] 1 dropper BOTH EYES BID 07/05/21 08/18/21 Oxybutynin Chloride 5 mg PO QAM 07/05/21 08/18/21 Potassium Chloride [Klor-Con 10 ER] 10 meq PO BID 07/05/21 08/18/21 Pravastatin Sodium 80 mg PO HS 07/05/21 08/18/21 amLODIPine [Norvasc] 5 mg PO DAILY 07/05/21 08/18/21 Previous Rx's Medication Instructions Recorded Apixaban [Eliquis] 5 mg PO BID #90 tab 09/04/17 Metoprolol Succinate (ER) [Toprol 25 mg PO DAILY #30 tab.er.24h 09/04/17 XL] Allergies Allergy/AdvReac Type Severity Reaction Status Date / Time adhesive tape AdvReac skin peels Uncoded 06/04/22 15:12 Review of Systems ROS Statement: Those systems with pertinent positive or pertinent negative responses have been documented in the HPI. ROS Other: All systems not noted in ROS Statement are negative. Past Medical History Past Medical History: CVA/TIA, Hypertension, Osteoarthritis (OA), Rheumatoid Arthritis (RA), Thyroid Disorder Additional Past Medical History / Comment(s): see Dr Muniz H&P, "several strokes-last one about 3 yrs ago"-no residual effects. History of Any Multi-Drug Resistant Organisms: None Reported Past Surgical History: Ablation, Bariatric Surgery, Breast Surgery, Cholecystec mirtha, Hernia Repair, Joint Replacement, Tonsillectomy, Tubal Ligation Additional Past Surgical History / Comment(s): Left Breast Biopsy. elmer knee replacement, "stomach stapling". Colonoscopies, elmer cataract removal, recent cardioversion Past Anesthesia/Blood Transfusion Reactions: No Reported Reaction Past Psychological History: No Psychological Hx Reported Smoking Status: Former smoker Past Alcohol Use History: None Reported Past Drug Use History: None Reported - Past Family History Brother(s) Family Medical History: Cancer Sister(s) Family Medical History: Cancer Additional Family Medical History / Comment(s): Lymphoma General Exam Limitations: no limitations General appearance: alert, in no apparent distress Head exam: Present: atraumatic, normocephalic, normal inspection Eye exam: Present: normal appearance, PERRL, EOMI. Absent: scleral icterus, conjunctival injection, periorbital swelling ENT exam: Present: normal exam, mucous membranes moist Neck exam: Present: normal inspection Respiratory exam: Present: normal lung sounds bilaterally. Absent: respiratory distress, wheezes, rales, rhonchi, stridor Cardiovascular Exam: Present: regular rate, irregular rhythm GI/Abdominal exam: Present: soft, normal bowel sounds. Absent: distended, tenderness, guarding, rebound, rigid Extremities exam: Present: normal inspection, full ROM, normal capillary refill. Absent: tenderness, pedal edema, joint swelling, calf tenderness Back exam: Present: normal inspection Neurological exam: Present: alert, oriented X3, CN II-XII intact Psychiatric exam: Present: normal affect, normal mood Course Vital Signs 06/04/22 15:10 Temperature 98.4 F Pulse Rate 78 Respiratory 22 Rate Blood Pressure 180/91 O2 Sat by Pulse 96 Oximetry Medical Decision Making - Medical Decision Making This is 77 a year old female presenting to the emergency department for weakness and cough . Patient was seen and evaluated physical exam essentially unremarkable. Work and imaging ordered performed during the course in the ED. I interpreted the following: Lab work remarkable for COVID positive, BNP 5980. Chest x-ray remarkable for congestive heart failure. I discussed the results in detail with the patient and return precautions were discussed. Patient verbalized understanding and is agreeable with plan for discharge. I encouraged the patient follow up with her PCP and recreation therapy teacher as needed. I discussed the case with TAINA Lunsford who agrees with plan for discharge. - Lab Data Result diagrams: 06/04/22 15:48 06/04/22 15:48 Lab Results 06/04/22 06/04/22 06/04/22 Range/Units 15:48 15:48 15:48 WBC 4.5 (3.8-10.6) k/uL RBC 4.82 (3.80-5.40) m/uL Hgb 13.5 (11.4-16.0) gm/dL Hct 43.4 (34.0-46.0) % MCV 90.0 (80.0-100.0) fL MCH 27.9 (25.0-35.0) pg MCHC 31.1 (31.0-37.0) g/dL RDW 18.2 H (11.5-15.5) % Plt Count 141 L (150-450) k/uL MPV 8.1 Neutrophils % (Manual) 70 % Lymphocytes % (Manual) 14 % Monocytes % (Manual) 16 % Neutrophils # (Manual) 3.15 (1.3-7.7) k/uL Lymphocytes # (Manual) 0.63 L (1.0-4.8) k/uL Monocytes # (Manual) 0.72 (0-1.0) k/uL Nucleated RBCs 0 (0-0) /100 WBC Manual Slide Review Performed Hypochromasia Marked Poikilocytosis (manual Present Anisocytosis Slight Anisocytosis (manual) Present D-Dimer 1.42 H (<0.60) mg/L FEU Sodium (137-145) mmol/L Potassium (3.5-5.1) mmol/L Chloride (98-107) mmol/L Carbon Dioxide (22-30) mmol/L Anion Gap mmol/L BUN (7-17) mg/dL Creatinine (0.52-1.04) mg/dL Est GFR (CKD-EPI)AfAm (>60 ml/min/1.73 sqM) Est GFR (CKD-EPI)NonAf (>60 ml/min/1.73 sqM) Glucose (74-99) mg/dL Calcium (8.4-10.2) mg/dL Total Bilirubin (0.2-1.3) mg/dL AST (14-36) U/L ALT (4-34) U/L Alkaline Phosphatase (38-126) U/L Troponin I <0.012 (0.000-0.034) ng/mL NT-Pro-B Natriuret Pep pg/mL Total Protein (6.3-8.2) g/dL Albumin (3.5-5.0) g/dL Influenza Type A (PCR) (Not Detectd) Influenza Type B (PCR) (Not Detectd) RSV (PCR) (Not Detectd) SARS-CoV-2 (PCR) (Not Detectd) 06/04/22 06/04/22 06/04/22 Range/Units 15:48 15:48 15:49 WBC (3.8-10.6) k/uL RBC (3.80-5.40) m/uL Hgb (11.4-16.0) gm/dL Hct (34.0-46.0) % MCV (80.0-100.0) fL MCH (25.0-35.0) pg MCHC (31.0-37.0) g/dL RDW (11.5-15.5) % Plt Count (150-450) k/uL MPV Neutrophils % (Manual) % Lymphocytes % (Manual) % Monocytes % (Manual) % Neutrophils # (Manual) (1.3-7.7) k/uL Lymphocytes # (Manual) (1.0-4.8) k/uL Monocytes # (Manual) (0-1.0) k/uL Nucleated RBCs (0-0) /100 WBC Manual Slide Review Hypochromasia Poikilocytosis (manual Anisocytosis Anisocytosis (manual) D-Dimer (<0.60) mg/L FEU Sodium 139 (137-145) mmol/L Potassium 5.4 H (3.5-5.1) mmol/L Chloride 108 H (98-107) mmol/L Carbon Dioxide 25 (22-30) mmol/L Anion Gap 6 mmol/L BUN 16 (7-17) mg/dL Creatinine 0.90 (0.52-1.04) mg/dL Est GFR (CKD-EPI)AfAm 72 (>60 ml/min/1.73 sqM) Est GFR (CKD-EPI)NonAf 63 (>60 ml/min/1.73 sqM) Glucose 99 (74-99) mg/dL Calcium 8.8 (8.4-10.2) mg/dL Total Bilirubin 1.9 H (0.2-1.3) mg/dL AST 49 H (14-36) U/L ALT 19 (4-34) U/L Alkaline Phosphatase 80 (38-126) U/L Troponin I (0.000-0.034) ng/mL NT-Pro-B Natriuret Pep 5970 pg/mL Total Protein 7.6 (6.3-8.2) g/dL Albumin 3.5 (3.5-5.0) g/dL Influenza Type A (PCR) Not Detected (Not Detectd) Influenza Type B (PCR) Not Detected (Not Detectd) RSV (PCR) Not Detected (Not Detectd) SARS-CoV-2 (PCR) Detected A (Not Detectd) Disposition Clinical Impression: COVID-19 Disposition: HOME SELF-CARE Condition: Stable Instructions (If sedation given, give patient instructions): Upper Respiratory Infection (ED), COVID-19 (Coronavirus Disease 2019) (ED) Is patient prescribed a controlled substance at d/c from ED?: No Referrals: Frank Hough MD [Primary Care Provider] - 1-2 days Time of Disposition: 17:24
[2022-06-04 16:10] LABS: Anisocytosis Slight; HCT 43.4 % (34.0-46.0); HGB 13.5 gm/dL (11.4-16.0); Hypochromasia Marked; MCH 27.9 pg (25.0-35.0); MCHC 31.1 g/dL (31.0-37.0); Mean Platelet Volume 8.1; Platelet Count 141 k/uL (150-450); RBC 4.82 m/uL (3.80-5.40); RDW 18.2 % (11.5-15.5); WBC 4.5 k/uL (3.8-10.6)
[2022-06-04 16:14] LABS: Albumin 3.5 g/dL (3.5-5.0); Calcium 8.8 mg/dL (8.4-10.2); Potassium 5.4 mmol/L (3.5-5.1); Total Bilirubin 1.9 mg/dL (0.2-1.3); Total Protein 7.6 g/dL (6.3-8.2)
--- NOTE | 2022-06-04 16:17 | XR ---
EXAMINATION TYPE: XR chest 2V DATE OF EXAM: 06/04/2022 COMPARISON: 06/01/2018 HISTORY: Short of breath TECHNIQUE: 2 views FINDINGS: There is pulmonary interstitial and airspace edema. Heart is enlarged. There is blunting of the cost phrenic angles. IMPRESSION: Congestive heart failure with pleural fluid. Heart failure appears new compared to the ol d exam.
[2022-06-04 16:44] LABS: Lymphocytes # (M) 0.63 k/uL (1.0-4.8); Monocytes # (M) 0.72 k/uL (0-1.0); Neutrophils # (M) 3.15 k/uL (1.3-7.7); Neutrophils % (M) 70 %; Nucleated Red Blood Cells 0 /100 WBC (0-0); Total Cells Counted 100
[2022-06-04 16:45] LABS: Anisocytosis (M) Present; Poikilocytosis (M) Present
--- NOTE | 2022-06-04 17:20 | CT ---
EXAMINATION TYPE: CT chest angio for PE DATE OF EXAM: 06/04/2022 COMPARISON: None HISTORY: Elevated d-dimer, dizziness and NASH. CT DLP: 310.6 mGycm Automated exposure control for dose reduction was used. CONTRAST: Performed with IV Contrast, patient injected with 80ml mL of Isovue 370. Images obtained from the thoracic inlet to the diaphragm with the IV contrast. There are 3-D postproc ess images. There are bilateral [id number] pleural effusions. Heart is enlarged. No pericardial effusion. T here are no hilar masses. There is no mediastinal adenopathy. Thoracic aorta is atheromatous. No aneu rysm or dissection. There is normal contrast opacification of the pulmonary arteries. No filling defect. There is no medi astinal adenopathy. There is some pulmonary interstitial groundglass edema. The thoracic spine is int act. There is multilevel thoracic spondylotic changes. Sternum is intact. IMPRESSION: No evidence of pulmonary embolism. Pleural effusions and pulmonary edema consistent with congestive h eart failure. No suspicious pulmonary mass.
== END 2022-06-04 18:43 | disposition home or self-care (01) ==
LOC: EC 15:01
DX: U07.1 COVID-19 (principal); I11.0 Hypertensive heart disease with heart failure; I50.9 Heart failure, unspecified; J90 Pleural effusion, not elsewhere classified; G45.9 Transient cerebral ischemic attack, unspecified; M19.90 Unspecified osteoarthritis, unspecified site; E07.9 Disorder of thyroid, unspecified; Z87.891 Personal history of nicotine dependence; Z79.890 Hormone replacement therapy; Z79.899 Other long term (current) drug therapy; Z91.048 Other nonmedicinal substance allergy status
CPT/HCPCS: 36415; 93005; 85379; 83880; 80053; 84484; 85025; 87636; 71046; 71275; 99285; Q9967

== ENCOUNTER 2022-10-17 07:32 | Day surgery (SDC) | payer MEDICARE ==
[~2022-10-17 07:32] MED LIST changes: +ALPRAZolam 0.25 MG TAB PO PRN; +ALPRAZolam 0.5 MG TAB PO PRN; +ASPIRIN 325 MG TAB PO ONE; +ATORVASTATIN 80 MG TAB PO ONE; +HEPARIN SODIUM,PORCINE 10,000 UNIT in SODIUM CHLORIDE 0.9% 1,000 ML IRRIGATION PRN; +HEPARIN SODIUM,PORCINE 2,500 UNIT in SODIUM CHLORIDE 0.9% 250 ML IRRIGATION PRN; -HYDROmorphone 0.5 MG/0.5 ML SYRINGE IVP PRN; -LACTATED RINGERS 1,000 ML IV SCH; -MIDAZOLAM 2 MG/2 ML VIAL IV PRN; +NITROGLYCERIN SL TABS 0.4 MG TAB SUBLINGUAL PRN; -SODIUM CHLORIDE 0.9% 1,000 ML IV SCH; +SODIUM CHLORIDE 0.9% 1,000 ML in EMPTY BAG 1 BAG IV SCH
[2022-10-17 07:59] VITALS: TEMP 98.6
[2022-10-17 08:01] LABS: Anisocytosis Slight; HGB 13.4 gm/dL (11.4-16.0); Hypochromasia Marked; MCH 27.9 pg (25.0-35.0); MCHC 29.8 g/dL (31.0-37.0); MCV 93.3 fL (80.0-100.0); Mean Platelet Volume 7.9; Platelet Count 157 k/uL (150-450); RBC 4.82 m/uL (3.80-5.40); RDW 17.3 % (11.5-15.5); WBC 4.1 k/uL (3.8-10.6)
[2022-10-17 08:15] LABS: Calcium 9.3 mg/dL (8.4-10.2)
[2022-10-17 08:26] LABS: Potassium 4.2 mmol/L (3.5-5.1)
[2022-10-17] MEDS: BENZOCAINE SPRAY 1 CAN MUCOUS MEM ONE ×2 (08:50→09:08)
[2022-10-17] MEDS ORDERED: fentaNYL (PF) 50 MCG/ML 2 ML AMP ONE (09:00)
[2022-10-17] MEDS ORDERED: VERAPAMIL 2.5 MG/ML 2 ML AMP ONE (09:00)
[2022-10-17] MEDS ORDERED: HEPARIN SODIUM 1,000 UN/ML (10ML VL) ONE (09:01)
[2022-10-17 09:08] LABS: Eosinophils # (M) 0.08 k/uL (0-0.7); Lymphocytes # (M) 1.52 k/uL (1.0-4.8); Monocytes # (M) 0.57 k/uL (0-1.0); Neutrophils # (M) 1.93 k/uL (1.3-7.7); Neutrophils % (M) 47 %; Nucleated Red Blood Cells 0 /100 WBC (0-0); Total Cells Counted 100
[2022-10-17] MEDS: MIDAZOLAM 2 MG/2 ML VIAL IVP ONE ×2 (09:09→09:12)
[2022-10-17] MEDS: fentaNYL (PF) 50 MCG/1 ML VIAL IVP ONE ×2 (09:09→09:12)
[2022-10-17] MEDS ORDERED: MIDAZOLAM 2 MG/2 ML VIAL IVP ONE (09:14)
--- NOTE | 2022-10-17 09:32 | P.TEE ---
Description of Procedure(s): Procedure performed: Transesophageal Echocardiogram with color flow doppler, pulsed wave doppler and continuous wave doppler, moderate conscious sedation Moderate conscious sedation: Moderate conscious sedation was supplied with direct supervision of myself using Versed and Fentanyl. Complications: none Indications: Aortic stenosis PROCEDURE: After the risks, benefits and alternatives of the above mentioned procedure was explained in detail with the patient, informed consent was obtained. Patient was brought to the lab in a fasting state. Patient was given IV Versed and Fentanyl for sedation. The throat was sprayed with Hurricane to anesthetize the throat. A lubricated Omni probe was then introduced into the esophagus and stomach and multiple views were obtained. 2D echo with color flow doppler, pulsed wave doppler and continuous wave doppler was utilized. Agitated saline bubbles were injected to assess for any intra-atrial shunt. The probe was then removed. Patient tolerated the procedure well. Patient was transferred to the post procedure area in stable and satisfactory condition. FINDINGS: 1. The aortic valve is tricuspid with severe aortic stenosis by planimetry with aortic valve area 0.7 cm. 2. The mitral valve appears be normal with mild mitral regurgitation. There is severe mitral annular calcification with mild decreased leaflet excursion. There is mild mitral stenosis. 3. Tricuspid valve has mild tricuspid regurgitation. 4. The interatrial septum is intact. No evidence of PFO. 5. Left atrial appendage is free of clot. 6. Left ventricular ejection fraction is 55% 7. Severe biatrial enlargement
[2022-10-17] MEDS: LIDOCAINE 1% INJ 10MG/ML (5 ML VIAL-PF) SQ ONE ×2 (09:37→10:15)
[2022-10-17 10:01] LABS: O2 Sat Blood Gas 76.1 %
[2022-10-17 10:05] LABS: O2 Sat Blood Gas 97.4 %
[2022-10-17] MEDS ORDERED: HEPARIN SODIUM 1,000 UN/ML (10ML VL) IV ONE (10:17)
[2022-10-17] MEDS ORDERED: IOPAMIDOL-370 100ML BTL INJ ONE (10:35)
[2022-10-17 12:39] VITALS: RESP 16
[2022-10-17 12:42] VITALS: BP 183/79; PULSE 58
--- NOTE | 2022-10-17 14:44 | P.CARDCATH ---
Description of Procedure: PROCEDURES PERFORMED: Right heart catheterization, bilateral coronary angiography INDICATION: Aortic stenosis CONSENT:I have discussed the risks, benefits and alternative therapies for the above-mentioned procedure and for both sedation/analgesia as well as necessary blood product administration, if indicated, as they pertain to this patient. The patient has indicated understanding and acceptance of the risks and procedures discussed. PROCEDURE: After the risks, benefits and alternatives of the above mentioned procedure explained in detail with the patient, informed consent was obtained. Patient was taken to the catheterization lab and prepped and draped in usual fashion. 1% lidocaine was used to anesthetize the right radial artery. A 6- Icelandic sheath was placed in the right radial artery using modified Seldinger technique. 1% Lidocaine was used to anesthetize the right brachial area and a 6Fr sheath was placed in the brachial vein using modified Seldinger technique. A 6Fr Orlando Jessica catheter was inserted into the RA, RV, PA and PCWP positions and pressure measurements were obtained as well as oxygen saturations. Thermodilution was performed. A 0.035 wire was attempted to be advanced from the right radial approach however there was difficulty advancing past the right subclavian stent despite using a glide wire. Pressure measurement in the proximal right subclavian noted an approximately 70mmHg pressure gradient difference consistent with subclavian stenosis and given contrast limits no angio was taken and decision made to perform from a left radial approach. A 6Fr sheath was placed in the left radial artery using modified Seldinger technique. Left coronary angiography was performed with a 5-Icelandic JL 4.0 catheter and right coronary angiography was performed with a 5-Icelandic JR4 catheter in various views. The right and left radial sheaths were removed and a TR band was placed with hemostasis achieved. The patient tolerated the procedure well. Patient was transported back to the post catheterization holding area in stable condition. Conscious Sedation: Patient was monitored under the direct supervision of myself for conscious sedation using Versed and fentanyl for a total duration of 56 minutes HEMODYNAMICS: Ao: 196/93 PCWP: 20 mmHg RV: 58/2 RA: 9 Right radial oxygen saturation: 97% PA oxygen saturation: 84% RA oxyegn saturation: 76% CO by thermodilution: 5.2 L/min CI by thermodilution: 3.1 L/min/m2 CO by SHAYNA: 6.3 L/min CI by SHAYNA: 3.8 L/min/m2 SELECTIVE CORONARY ARTERIOGRAPHY: LEFT MAIN: The left main is a large caliber vessel which bifurcates into the LAD and circumflex. There is no significant stenosis. LEFT ANTERIOR DESCENDING CORONARY ARTERY: LAD is a large caliber vessel which wraps around to the apex. There are mild luminal irregularities. There is a very small caliber diagonal 1 branch with a 90% stenosis and otherwise mild luminal irregularities. LEFT CIRCUMFLEX CORONARY ARTERY: Left circumflex is a moderate caliber vessel with mild luminal irregularities RIGHT CORONARY ARTERY: The right coronary artery is a large caliber vessel which gives off a PDA and PLV branch and is the dominant vessel. There is diffuse heavy calcification however only 10-20% stenosis FINAL IMPRESSION: 1. Relatively normal coronary arteries as described above other than mild luminal irregularities, 10-20% RCA stenosis. 2. Mildly elevated left sided filling pressures 3. Normal CO/CI 4. 70 mmHg pressure gradient across right subclavian stent consistent with right subclavian stenosis 5. Mild oxygen saturation step up more likely consistent with variance as opposed to shunt PLAN: 1. Aggressive risk factor modification per most recent ACC/AHA guidelines.
== END 2022-10-17 15:42 | disposition home or self-care (01) ==
LOC: CATHCVL 07:32
PROVIDERS: ATTEND Internal Medicine
DX: I08.3 Combined rheumatic disorders of mitral, aortic and tricuspid valves (principal); I25.10 Atherosclerotic heart disease of native coronary artery without angina pectoris
CPT/HCPCS: 93312; 93320; 93325; 93456; 80048; 85018; 82810; 85025; C1769 ×2; C1894; C1751; J2250; J2001; J1644; Q9967; J3010

== ENCOUNTER → 2022-11-16 | Outpatient (CLI) | payer MEDICARE ==
[2022-11-16 10:26] LABS: Appearance,Urine Clear (Clear); Bilirubin,Urine Negative (Negative); Blood,Urine Negative (Negative); Color,Urine Light Yellow; Glucose,Urine (UA) Negative (Negative); Hyaline Casts,Urine 1 /lpf (0-2); Ketones,Urine Negative (Negative); Leukocyte Esterase,Urine Moderate (Negative); Mucus,Urine Rare /hpf; Nitrite,Urine Negative (Negative); Protein,Urine Negative (Negative); RBC,Urine 3 /hpf (0-5); Specific Gravity,Urine 1.007 (1.001-1.035); Squamous Epithelial Cell,Urine <1 /hpf (0-4); Urobilinogen,Urine <2.0 mg/dL (<2.0); WBC,Urine 1 /hpf (0-5)
[2022-11-16 10:31] LABS: INR 1.1 (<1.2); Partial Thromboplastin Time 24.7 sec (22.0-30.0); Prothrombin Time 11.3 sec (9.0-12.0)
[2022-11-16 11:14] LABS: ALT 19 U/L (4-34); AST 43 U/L (14-36); African American GFR (CKD) 51 (>60 ml/min/1.73 sqM); Albumin 3.6 g/dL (3.5-5.0); Albumin/Globulin Ratio 0.9; Alkaline Phosphatase 76 U/L (38-126); Anion Gap 6 mmol/L; Blood Urea Nitrogen 21 mg/dL (7-17); Carbon Dioxide 30 mmol/L (22-30); Chloride 103 mmol/L (98-107); Globulin 3.9 g/dL; Glucose 83 mg/dL (74-99); Magnesium 2.4 mg/dL (1.6-2.3); Non-African American GFR(CKD) 44 (>60 ml/min/1.73 sqM); Potassium 4.2 mmol/L (3.5-5.1); Sodium 139 mmol/L (137-145); Total Bilirubin 1.4 mg/dL (0.2-1.3); Total Protein 7.5 g/dL (6.3-8.2)
--- NOTE | 2022-11-16 12:56 | CT ---
EXAMINATION TYPE: CT TAVR Planning DATE OF EXAM: 11/16/2022 HISTORY: Pre TAVR CT DLP: 1905.5 mGycm Automated Exposure Control for Dose Reduction was Utilized. CONTRAST: CT scan of the chest, abdomen and pelvis is performed with IV Contrast, patient injected with 125 mL of Isovue 370. COMPARISON: CTA chest 06/04/2022, CT abdomen pelvis 04/29/2012. TECHNIQUE: Helical imaging obtained through the chest, abdomen and pelvis during arterial phase arabella wicho administration of radiographic contrast intravenously. FINDINGS: See report from [employer] regarding preprocedural planning CHEST: Lower Neck and Thyroid: Moderate calcified plaque in the right carotid bulb1 Lungs/ pleura: Trace bilateral pleural effusions. No pneumothorax. Anterior upper lobe subpleural ret icular opacities likely representing fibrotic changes. Central Airway: No significant findings Pulmonary Arteries: No significant findings Heart and Pericardium: Mildly enlarged. No pericardial effusion. Mitral annulus and aortic valvular c alcifications. Moderate three-vessel coronary calcifications. Three-vessel conventional aortic arch. Mild coronary arterial calcifications of the aorta and its bra nches. Mild stenosis of the origin of the SMA secondary to calcified and noncalcified plaque. Lymph Nodes: No significant findings Mediastinum & Esophagus: No significant findings ABDOMEN/PELVIS: Please note arterial phase of the imaging limits detailed evaluation of the solid abdominal organs. Liver: No significant findings Spleen: No significant findings Kidneys: No significant findings Adrenal Glands: No significant findings Pancreas: No significant findings Gallbladder: Surgically absent. Bowel and Mesentery: Post surgical changes of the stomach. Lymph Nodes: No significant findings Urinary Bladder: No significant findings Pelvic Organs: No significant findings Other: Grade 1 anterolisthesis of L4 on L5. Mild retrolisthesis of L3 on L4. Chronic appearing anteri or wedge compression deformity of the T11 vertebral body with approximately 25% height loss and 2 mm retropulsion. Mild multilevel degenerative disc disease. Mild atherosclerotic calcification of both s uperficial femoral arteries. Other Lines/Tubes/Devices/Hardware: None IMPRESSION: 1. No acute process. 2. Mild cardiomegaly with coronary artery calcifications. 3. Trace bilateral pleural effusions. 4. Chronic T11 anterior wedge compression deformity.
[2022-11-16 16:01] LABS: Chol/HDL Ratio 2.33 Ratio; LDL Cholesterol,Calculated 70.6 mg/dL (0.0-131.0)
[2022-11-16 18:59] LABS: Hepatitis A Antibody IgM Nonreactive; Hepatitis B Core IgM Nonreactive; Hepatitis B Surface Antigen Nonreactive; Hepatitis C IgG Antibody Nonreactive
[2022-11-16 20:42] LABS: Basophils % (A) 0.6 %; Eosinophils % (A) 3.7 %; HCT 45.6 % (37.2-46.3); HGB 13.3 d/dL (12.0-15.0); Lymphocytes % (A) 33.5 %; MCHC 29.2 d/dL (32.0-37.0); Mean Platelet Volume 11.5 FL (9.5-12.2); Monocytes % (A) 6.7 %; NRBC Per 100 WBC 0 X 10*3/uL (0.00-0.01); Neutrophils % (A) 55.3 %; Platelet Count 150 X 10*3/uL (140-440); RBC 4.75 X 10*6/uL (4.10-5.20); RDW 18.5 % (11.5-14.5); WBC 5.07 X 10*3/uL (4.50-10.00)
[2022-11-16 20:43] LABS: Basophils # (A) 0.03 X 10*3/uL (0.00-0.10); Eosinophils # (A) 0.19 X 10*3/uL (0.04-0.35); Monocytes # (A) 0.34 X 10*3/uL (0.20-1.00)
== END | disposition home or self-care (01) ==
LOC: LABWHC1 09:28
PROVIDERS: ATTEND Thoracic Surgery (Cardiothoracic Vascular Surgery)
DX: I35.1 Nonrheumatic aortic (valve) insufficiency (principal); I25.10 Atherosclerotic heart disease of native coronary artery without angina pectoris; J90 Pleural effusion, not elsewhere classified; M48.54XA Collapsed vertebra, not elsewhere classified, thoracic region, initial encounter for fracture; I51.7 Cardiomegaly; I49.8 Other specified cardiac arrhythmias; I44.0 Atrioventricular block, first degree
CPT/HCPCS: 94150; 83880; 80061; 80053; 80074; 84443; 83735; 85025; 85610; 85730; 81001; 87086; 83036; 71275; 36415 ×2; 74174; 93005; Q9967

== ENCOUNTER → 2022-11-28 | Outpatient (CLI) | payer MEDICARE | END | disposition home or self-care (01) | LOC: LABWHC1 14:23 | PROVIDERS: ATTEND Thoracic Surgery (Cardiothoracic Vascular Surgery) | DX: Z01.812 Encounter for preprocedural laboratory examination (principal); I35.1 Nonrheumatic aortic (valve) insufficiency; I35.0 Nonrheumatic aortic (valve) stenosis; R58 Hemorrhage, not elsewhere classified; Z79.899 Other long term (current) drug therapy | CPT/HCPCS: 36415; 85730 ==

== ENCOUNTER 2022-12-06 07:48 | Inpatient (IN) | payer MEDICARE ==
[2022-12-06] MEDS ORDERED: SODIUM CHLORIDE 0.9% 1,000 ML IV ONE (07:59)
[2022-12-06] MEDS ORDERED: NITROGLYCERIN-D5W PMX 25 MG/250 ML BTL IV PRN (08:00)
[2022-12-06] MEDS ORDERED: CLEVIDIPINE BUTYRATE 25 MG in EMPTY BAG 1 BAG IV PRN (08:00)
[2022-12-06] MEDS ORDERED: TRANEXAMIC ACID 2,000 MG in SODIUM CHLORIDE 0.9% 80 ML IV PRN (08:00)
[2022-12-06] MEDS ORDERED: INSULIN REGULAR 100 UNIT in SODIUM CHLORIDE 0.9% 100 ML IV PRN (08:00)
[2022-12-06] MEDS ORDERED: METOPROLOL TARTRATE 25 MG TAB PO ONE (08:00)
[2022-12-06] MEDS ORDERED: LACTATED RINGERS 1,000 ML IV SCH ×2 (08:00→12:02)
[2022-12-06] MEDS ORDERED: ELECTROLYTE-A SOLUTION 1,000 ML with POTASSIUM CHLORIDE 100 MEQ, MAGNESIUM SULFATE 16 M... IV PRN ×5 (08:00)
[2022-12-06] MEDS ORDERED: PROTAMINE SULFATE 250 MG in EMPTY BAG 1 BAG IV PRN (08:00)
[2022-12-06] MEDS ORDERED: CLOPIDOGREL 75 MG TAB PO ONE (08:00)
[2022-12-06] MEDS ORDERED: ATORVASTATIN 10 MG TAB PO ONE (08:00)
[2022-12-06] MEDS ORDERED: ASPIRIN 325 MG TAB PO ONE (08:00)
[2022-12-06 08:15] LABS: Glucose,Whole Blood 96 mg/dL (70-110)
[2022-12-06] MEDS ORDERED: MIDAZOLAM 2 MG/2 ML VIAL ONE (09:52)
[2022-12-06] MEDS ORDERED: GLYCOPYRROLATE 0.2 MG/ML 2 ML VIAL ONE (09:52)
[2022-12-06] MEDS ORDERED: SUCCINYLCHOLINE CHLORIDE 200 MG/10 ML VIAL IV ONE (09:52)
[2022-12-06] MEDS ORDERED: PROTAMINE SULFATE 10 MG/ML 5 ML VIAL IV ONE (09:52)
[2022-12-06] MEDS ORDERED: NEOSTIGMINE 1 MG/ML 10 ML VIAL ONE (09:52)
[2022-12-06] MEDS ORDERED: hydrALAZINE HCL 20 MG/ML 1 ML VIAL ONE (09:52)
[2022-12-06] MEDS ORDERED: ePHEDrine 50 MG/ML 1 ML VIAL ONE (09:52)
[2022-12-06] MEDS ORDERED: fentaNYL (PF) 50 MCG/ML 2 ML AMP ONE (09:52)
[2022-12-06] MEDS ORDERED: ROCURONIUM 10 MG/ML (5 ML VIAL) IV ONE (09:52)
[2022-12-06] MEDS ORDERED: PROPOFOL 10 MG/ML 20 ML VIAL IV ONE (09:52)
[2022-12-06] MEDS ORDERED: LIDOCAINE 2% INJ 20 MG/ML (2 ML VIAL) ONE (09:52)
[2022-12-06] MEDS ORDERED: IOPAMIDOL-250 100ML BTL INTRAARTER ONE ×2 (11:30→11:31)
[2022-12-06] MEDS ORDERED: ONDANSETRON 4 MG/2 ML VIAL IVP PRN (12:02)
[2022-12-06] MEDS ORDERED: IPRATROPIUM-ALBUTEROL 3 ML NEB INHALATION PRN (12:02)
--- NOTE | 2022-12-06 12:04 | P.PCN ---
Date of Procedure: 12/06/22 Operative Findings: TRANSCATHETER AORITC VALVE REPLACEMENT OPERATIVE REPORT PROCEDURE PERFORMED: 1. Percutaneous Aortic Valve Implantation using a 26 mm Rowell Syed 2. Transesophageal echocardiography (performed by anesthesia) 3. Ultrasound guided access of left femoral artery access site by Perclose closure device. 4. Placement of temporary pacemaker wire. 5. Aortic root angiography 6. Intravascular ultrasound of the left iliac artery INDICATIONS: 1. 77year-old with a history of severe symptomatic aortic valve stenosis. The patient was experiencing shortness of breath consistent with NYHA class II PERFORMING PHYSICIANS: 1. Aquiles Simons MD Interventional Cardiology. 3. Miguelito Thompson MD, MD, Cardiothoracic Surgeon. SEDATION: General anesthesia provided by anesthesia, see separate note APPROACH: Right and left femoral artery via percutaneous approach PROCEDURE DESCRIPTION: The patient was discussed at valve clinic with multidisciplinary approach with cardiothoracic surgeon as well as machine maintenance repairer and thought better treated with TAVR. Risks, benefits, and alternatives of the procedure had been explained to the patient who understood the risks and agreed to proceed. After consents were obtained, patient was brought to the transcatheter aortic valve implantation room in the cardiac laboratory machinist and general anesthesia was provided by the anesthesiologist (see separate report). Once full body sterile prep was performed, right subclavian venous access was obtained and a temporary pacemaker was screwed in, performed by cardiothoracic surgery. Pacing threshholds were checked and deemed appropriate. Next the right femoral artery waw accessed using a modified Seldinger technique, ultrasound guidance and micropuncture technique. A 6 Mongolian Rabi sheath was placed in the right femoral artery. Next, a 6-Mongolian pigtail catheter was advanced into the aorta and positioned in the aortic root, aortic root angiography was performed to determine optimal deployment angle. The left femoral artery was accessed using modified Seldinger technique, micropuncture technique and under direct ultrasound guidance. Femoral angiogram was done showing access in the common femoral artery and a 6Fr sheath was placed. Next preclose technique was performed using a only one Perclose. Subsequently I placed an 8-Mongolian sheath in the left common femoral artery. Then I advanced an 014 wire to the aorta and we did intravascular ultrasound of the left iliac which showed calcified iliac with no high-grade stenosis. At that point we decided not to pursue with lithotripsy treatment of the left iliac. Next a 0.035 Lunderquist wire was placed in the Aorta via a pigtail catheter. Over that the arteriotomy was serially dilated and a 14 Fr [place] sheath was placed. Next a 6F- AL1 catheter was advanced over a wire to the aortic root. A straight wire was advanced through the catheter and used to cross the severely stenotic valve. The AL1 was then exchanged for a 6Fr pigtail catheter and pressure measurements were obtained. The 0.035 Lunderquist wire was then positioned in the apex. Next a 26 mm Rowell Syed was advanced. The valve was then positioned across the aortic valve and confirmed with aortic root angiography. The valve was then deployed in proper position using slow deployment and with rapid pacing in conjuncture with aortic root angiography and MIGUEL. The delivery system was withdrawn back into the arch and an aortic root in jection in conjunction with MIGUEL demonstrated a satisfactory result. There was trace para valvular leak. There was no evidence of any other significant abnormalities. The preclose Perclose was then deployed in the left femoral artery with no good hemostasis and we had to place and 10-Mongolian sheath to achieve hemostasis.. The temporary venous pacemaker was sutured in place. The patient was then transported to the ICU in hemodynamically stable condition, requiring no pressor support. COMPLICATIONS: None RECOMMENDATIONS: The patient will be monitored in the ICU for hemodynamic and electrical stability. Patient will be on aspirin and Plavix.
--- NOTE | 2022-12-06 12:28 | P.OP ---
Date of Procedure: 12/06/22 Preoperative Diagnosis: Symptomatic tricuspid aortic stenosis, peripheral vascular disease Postoperative Diagnosis: Same Procedure(s) Performed: Transcatheter aortic valve replacement with 29 mm Rowell's Sapien3 prosthesis and dilatation of the left common iliac artery. Implants: 29 mm Rowell's Sapien3 transcatheter valve Anesthesia: GETA Surgeon: Miguelito Thompson (Cardiovascular surgeon) Pouch Making Machine Operator #1: Aquiles Simons (school inspector) Estimated Blood Loss (ml): 20 Pathology: none sent Condition: stable Disposition: ICU Indications for Procedure: 77-year-old female with critical aortic valvular stenosis. She is highly symptomatic. She has significant peripheral vascular disease. Was felt that most likely we would be able to pass the valve through the left iliofemoral system although there was a tight stenosis in proximal common iliac. This was somewhat calcified but not circumferential. Right sided iliofemoral had worse disease. Operative Findings: I this indicated tight stenosis in the proximal iliac artery this was a very focal stenosis. We were able to dilate it with a 16 dilator. Following this we were able to successfully pass the 14 Rowell sheath. The valve was extremely tight and it was very challenging across the valve. Once across, interestingly enough, simultaneous pressure measurements did not indicate tight stenosis but this was clearly in error. Deployment proceeded without any difficulty following crossing of the aortic valve and MIGUEL demonstrated excellent valve positioning with no evidence of paravalvular leak, excellent valve expansion and illumination of any gradient across the aortic valve. Lesion angiography following removal of the Rowell sheath demonstrated good flow through the entire iliofemoral system with significant stenosis of the proximal femoral below the area of femoral puncture which was unchanged from preoperatively. Description of Procedure: Patient was brought to the cardiac catheterization laboratory and placed supine on the table. Gen. anesthesia was induced. MIGUEL probe was placed. Anterior torso and bilateral groins were sterilely prepped and draped. Right subclavian vein was punctured and guidewire threaded into the right atrium. The sternum dilator were placed in the screw-in lead was advanced into the apex of the right ventricle and screwed in. Pacing thresholds were below 1 V. Lead was secured at the exit site with 2-0 silk suture ligatures. Bilateral femoral access was obtained under ultrasound guidance. On the right along 6-Azerbaijani sheath was placed. The right common femoral was quite calcified. Sheath was advanced up into the proximal descending thoracic aorta and a pigtail catheter placed through it and positioned in the noncoronary sinus of Valsalva. [place] was obtained on the left. A soft spot was identified by ultrasound and punctured. This was about a centimeter above the femoral bifurcation. 6-Azerbaijani sheath was placed. I this catheter was then passed into the iliofemoral system and I was performed. One Perclose device was deployed and a 16-Azerbaijani dilator was then advanced over a stiff wire under careful fluoroscopic observation. Following this we were able to pass a 14-Azerbaijani Rowell sheath without too much difficulty over the stiff wire into the abdominal aorta. Patient was heparinized and ACT maintained greater than 250. The aortic valve was crossed under fluoroscopic guidance. It was quite challenging to cross the valve. Once the valve was crossed pigtail catheter was positioned in the apex of the left ventricle and simultaneous pressure measurements were obtained. Safari wire was then placed in the apex of the ventricle. Rowell Sapien3 29 mm valve had been loaded on the back table and the valve delivery system was brought up onto the field. It was advanced without difficulty through the Rowell sheath and into the descending thoracic aorta. Balloon was pulled back into the valve and then the valve was curved and advanced around the aortic arch and across the shinnecock aortic valve. Pressure was pulled back. Appropriate positioning was performed. The valve was deployed under rapid ventricular pacing with excellent result. The valve delivery system was pulled back into the descending thoracic aorta. MIGUEL was performed and we were very happy with the placement and expansion of the valve with no evidence of paravalvular leak. Heparin was not reversed with protamine. Operative delivery system was removed from the sheath and the sheath was removed from the femoral artery. Single Perclose device was deployed over an 8-Azerbaijani sheath. Completion angiography demonstrated no evidence of leak and patent femoral artery to the bifurcation of the femoral artery where there was intrinsic disease. Right femoral sheath was now removed and hemostasis obtained with direct pressure. Following this the left femoral sheath was removed and hemostasis was obtained with direct pressure. Patient was transferred to the ICU following extubation in stable hemodynamic condition.
[2022-12-06 12:48] LABS: Glucose,Whole Blood 126 mg/dL (70-110)
[2022-12-06 13:24] LABS: ALT 17 U/L (4-34); AST 39 U/L (14-36); African American GFR (CKD) 55 (>60 ml/min/1.73 sqM); Alkaline Phosphatase 76 U/L (38-126); Anion Gap 8 mmol/L; Blood Urea Nitrogen 19 mg/dL (7-17); Calcium 8.2 mg/dL (8.4-10.2); Carbon Dioxide 23 mmol/L (22-30); Chloride 108 mmol/L (98-107); Glucose 124 mg/dL (74-99); Magnesium 2.4 mg/dL (1.6-2.3); Non-African American GFR(CKD) 47 (>60 ml/min/1.73 sqM); Potassium 4.1 mmol/L (3.5-5.1); Sodium 139 mmol/L (137-145); Total Protein 6.8 g/dL (6.3-8.2)
[2022-12-06 13:41] LABS: Ionized Calcium 5.2 mg/dL (4.5-5.3)
[2022-12-06 13:42] LABS: INR 1.1 (<1.2); Partial Thromboplastin Time 24.4 sec (22.0-30.0); Prothrombin Time 11.5 sec (9.0-12.0)
[2022-12-06 13:42] LABS: Anisocytosis Slight; HCT 41.7 % (34.0-46.0); HGB 12.9 gm/dL (11.4-16.0); Hypochromasia Marked; MCH 28.5 pg (25.0-35.0); MCHC 30.9 g/dL (31.0-37.0); MCV 92.5 fL (80.0-100.0); Mean Platelet Volume 8.1; Platelet Count 125 k/uL (150-450); RBC 4.51 m/uL (3.80-5.40); RDW 16.6 % (11.5-15.5); WBC 4.9 k/uL (3.8-10.6)
--- NOTE | 2022-12-06 14:03 | XR ---
EXAMINATION TYPE: XR chest 1V portable DATE OF EXAM: 12/06/2022 1:27 PM COMPARISON: Chest radiographs from 06/04/2022 TECHNIQUE: XR chest 1V portable Frontal view of the chest. CLINICAL INDICATION:Female, 77 years old with history of Post Operative Cardiac Surgery; FINDINGS: Lungs/Pleura: There is no evidence of pleural effusion, focal consolidation, or pneumothorax. Pulmonary vascularity: Pulmonary vascular congestion. Heart/mediastinum: Cardiomediastinal silhouette is enlarged and stable. Atherosclerotic calcificatio ns are seen in the aorta. . Valvular repair changes. Cardiac conduction leads project over the right ventricle. Musculoskeletal: No acute osseous pathology. IMPRESSION: Pulmonary vascular congestion with cardia megaly. Right cardiac conduction leads projecti ng over the right ventricle.
[2022-12-06 14:10] LABS: Lymphocytes # (M) 1.47 k/uL (1.0-4.8); Neutrophils # (M) 3.14 k/uL (1.3-7.7); Neutrophils % (M) 64 %; Nucleated Red Blood Cells 0 /100 WBC (0-0); Total Cells Counted 100
--- NOTE | 2022-12-06 15:12 | P.ANPRN ---
Procedure Note - Anesthesia - MIGUEL Intraop Pre Bypass MIGUEL Intraop - Anesthesia Indication: TAVR Date of Procedure: 12/06/22 Pre-operative Diagnosis: Aortic Stenosis Post-operative Diagnosis: Same Surgeon: Miguelito Thompson Left Ventricle: wnl Ejection Fraction: Normal Regional Wall Motion Abnormalities: None Left Ventricle Hypertrophy: No R. Ventricle Function: Normal Aortic Valve: 0.5cm2, peak 55 mean 33, severely calcified Anatomy: Trileaflet Aortic Stenosis: Severe Aortic Regurgitation: Trace Mitral Stenosis: None Mitral Regurgitation: Mild Tricuspid Stenosis: None Tricuspid Regurgitation: Trace Pulmonic Stenosis: None Pulmonic Regurgitation: None R. Atrial Dilation: Yes R. Atrial PFO: No L. Atrial Dilation: Yes Aortic Dissection: No Plural Effusion: None
--- NOTE | 2022-12-06 15:13 | P.ANPRN ---
Procedure Note - Anesthesia - MIGUEL Intraop Post Bypass MIGUEL Intraop Post Bypass Procedure Performed: TAVR Left Ventricle: wnl Ejection Fraction: Normal Regional Wall Motion Abnormalities: None R. Ventricle Function: Normal Aortic Valve: Prostetic aortic valve in place. Opens well. No AI. Mean 9.5. Small perivalvular leak, decreasing in size by end of case Mitral Valve: Unchanged Tricuspid: Unchanged Pulmonic: Unchanged Aortic Dissection: No
[2022-12-06] MEDS: FLECAINIDE 50 MG TAB PO SCH (18:07)
[2022-12-06] MEDS: ACETAMINOPHEN TAB 325 MG TAB PO PRN ×2 (18:20→20:22)
[2022-12-06] MEDS: OXYBUTYNIN XL 5 MG TAB.ER.24 PO SCH (20:22)
[2022-12-06] MEDS ORDERED: PRAVASTATIN SODIUM 80 MG TAB PO SCH (21:00)
[2022-12-07] MEDS: HEPARIN SODIUM,PORCINE/PF 5,000 UNIT/0.5 ML SYRINGE SQ SCH ×2 (00:48→07:55)
[2022-12-07] MEDS: CYCLOSPORINE 0.09% BOTH EYES SCH ×2 (04:28→11:07)
[2022-12-07 04:51] LABS: Ionized Calcium 5.1 mg/dL (4.5-5.3)
[2022-12-07 04:54] LABS: Anisocytosis Slight; HCT 37.4 % (34.0-46.0); HGB 11.6 gm/dL (11.4-16.0); Hypochromasia Moderate; MCH 28.7 pg (25.0-35.0); MCHC 31.1 g/dL (31.0-37.0); MCV 92.3 fL (80.0-100.0); Mean Platelet Volume 8.3; Platelet Count 106 k/uL (150-450); RBC 4.05 m/uL (3.80-5.40); RDW 16.5 % (11.5-15.5); WBC 5.8 k/uL (3.8-10.6)
[2022-12-07 04:59] LABS: ALT 15 U/L (4-34); AST 45 U/L (14-36); African American GFR (CKD) 55 (>60 ml/min/1.73 sqM); Albumin 2.6 g/dL (3.5-5.0); Alkaline Phosphatase 66 U/L (38-126); Anion Gap 3 mmol/L; Blood Urea Nitrogen 19 mg/dL (7-17); Calcium 8.4 mg/dL (8.4-10.2); Carbon Dioxide 25 mmol/L (22-30); Chloride 108 mmol/L (98-107); Glucose 88 mg/dL (74-99); Magnesium 2.4 mg/dL (1.6-2.3); Non-African American GFR(CKD) 47 (>60 ml/min/1.73 sqM); Potassium 4.4 mmol/L (3.5-5.1); Sodium 136 mmol/L (137-145); Total Bilirubin 0.9 mg/dL (0.2-1.3); Total Protein 6.2 g/dL (6.3-8.2)
[2022-12-07 05:13] LABS: Eosinophils # (M) 0.06 k/uL (0-0.7); Lymphocytes # (M) 1.57 k/uL (1.0-4.8); Monocytes # (M) 0.41 k/uL (0-1.0); Neutrophils # (M) 3.77 k/uL (1.3-7.7); Neutrophils % (M) 65 %; Nucleated Red Blood Cells 0 /100 WBC (0-0); Total Cells Counted 100
[2022-12-07 05:14] LABS: RBC Morphology Normal
[2022-12-07 05:35] VITALS: TEMP 97.9
[2022-12-07] MEDS: FLECAINIDE 50 MG TAB PO SCH (05:50)
[2022-12-07] MEDS ORDERED: LEVOTHYROXINE 50 MCG TAB PO SCH (06:30)
--- NOTE | 2022-12-07 07:11 | XR ---
EXAMINATION TYPE: XR chest 1V portable DATE OF EXAM: 12/07/2022 5:24 AM COMPARISON: Chest radiographs from 12/06/2022 TECHNIQUE: XR chest 1V portable Portable AP radiograph of the chest. CLINICAL INDICATION:Female, 77 years old with history of Post Operative Cardiac Surgery; FINDINGS: Lungs/Pleura: There is no evidence of pleural effusion, focal consolidation, or pneumothorax. Mild i nterstitial prominence redemonstrated. Elevation of the right hemidiaphragm. Heart/mediastinum: Cardiomediastinal silhouette is enlarged and stable. Atherosclerotic calcificatio ns are seen in the aorta. . Valvular repair changes. Cardiac conduction leads project over the right ventricle. Musculoskeletal: No acute osseous pathology. IMPRESSION: Similar cardiomegaly with mild interstitial prominence.
[2022-12-07] MEDS ORDERED: PANTOPRAZOLE 40 MG TABLET PO SCH (07:30)
[2022-12-07] MEDS: OXYBUTYNIN XL 5 MG TAB.ER.24 PO SCH (07:58)
[2022-12-07] MEDS: FUROSEMIDE 20 MG TAB PO SCH ×2 (07:58→09:39)
[2022-12-07] MEDS: HYDROXYCHLOROQUINE SULFATE 200 MG TAB PO SCH ×2 (07:58→08:10)
[2022-12-07] MEDS ORDERED: DULoxetine HCL 20 MG CAPSULE.DR PO SCH (09:00)
[2022-12-07] MEDS ORDERED: CITALOPRAM HYDROBROMIDE 10 MG TAB PO SCH (09:00)
[2022-12-07] MEDS ORDERED: METOPROLOL SUCCINATE (ER) 25 MG TAB.ER.24H PO SCH (09:00)
[2022-12-07] MEDS ORDERED: APIXABAN 5 MG TAB PO SCH (09:00)
[2022-12-07 10:24] VITALS: BMI 31.1
--- NOTE | 2022-12-07 11:02 | CA ---
Transthoracic Echo Report Name: Alejandra Ram Age: 77 Gender: F : 1945 Exam Date: 12/07/2022 08:29 Exam Location: [facility] Ht (in): 59 Wt (lb): 154 Ordering Physician: Kaelyn Ibarra Attending/Referring Phys: [id number], Fred Freelance Photographer Nasrin Mitchell [facility] Procedure CPT: Indications: post TAVR Cardiac Hx: Technical Quality: Fair Contrast 1: Total Dose (mL): Contrast 2: Total Dose (mL): MEASUREMENTS (Male / Female) Normal Values 2D ECHO LV Diastolic Diameter PLAX 4.9 cm 4.2 - 5.9 / 3.9 - 5.3 cm LV Systolic Diameter PLAX 3.0 cm IVS Diastolic Thickness 1.1 cm 0.6 - 1.0 / 0.6 - 0.9 cm LVPW Diastolic Thickness 1.1 cm 0.6 - 1.0 / 0.6 - 0.9 cm LV Relative Wall Thickness 0.5 LVOT Diameter 2.0 cm Ascending Aorta Diameter 3.7 cm M-MODE Aortic Root Diameter MM 2.2 cm LA Systolic Diameter MM 5.4 cm LA Ao Ratio MM 2.5 DOPPLER AV Peak Velocity 233.5 cm/s AV Peak Gradient 21.8 mmHg AV Mean Velocity 179.3 cm/s AV Mean Gradient 13.6 mmHg AV Velocity Time Integral 57.4 cm LVOT Peak Velocity 107.9 cm/s LVOT Peak Gradient 4.7 mmHg LVOT Velocity Time Integral 26.9 cm LVOT Stroke Volume 81.4 cm??? LVOT Stroke Volume Index 49.3 ml/m??? LVOT Cardiac Index 2673.5 cm???/min???m??? AV Area Cont Eq vti 1.4 cm??? AV Area Cont Eq pk 1.4 cm??? MV Peak Velocity 169.4 cm/s MV Peak Gradient 11.5 mmHg MV Mean Velocity 93.7 cm/s MV Mean Gradient 4.0 mmHg MV Velocity Time Integral 54.2 cm MV Area PHT 2.0 cm??? Mitral E Point Velocity 141.5 cm/s Mitral A Point Velocity 100.9 cm/s Mitral E to A Ratio 1.4 MV Deceleration Time 329.0 ms LV E' Lateral Velocity 6.4 cm/s Mitral E to LV E' Lateral Ratio 22.0 LV E' Septal Velocity 4.5 cm/s Mitral E to LV E' Septal Ratio 31.3 TR Peak Velocity 294.2 cm/s TR Peak Gradient 34.6 mmHg Right Atrial Pressure 3.0 mmHg Pulmonary Artery Systolic Pressu 37.6 mmHg Right Ventricular Systolic Press 37.6 mmHg FINDINGS Left Ventricle Normal left ventricular wall motion. Left ventricular cavity size at the upper limits of normal. Mildly increased left ventricular wall thickness. Left ventricular ejection fraction is estimated at 55-60%. Right Ventricle Normal right ventricular size and function. Right Atrium Normal right atrial size. Left Atrium Severe left atrial dilatation. Mitral Valve Severe mitral annular calcification. Moderate mitral regurgitation. Aortic Valve Normally functioning bioprosthetic aortic valve without stenosis with a peak velocity of 2 m/s, peak gradient 21 mmHg, mean gradient 13 mmHg, and estimated aortic valve area of 1.4 cm???. Trace aortic regurgitation. Tricuspid Valve Structurally normal tricuspid valve. Mild tricuspid regurgitation. Pulmonic Valve Structurally normal pulmonic valve. Trace pulmonic regurgitation. Pericardium No pericardial effusion. Aorta Normal size aortic root.mildly dilated proximal ascending aorta (tube). CONCLUSIONS Normal left ventricle size and systolic function. There is mild to moderate concentric LVH. Left atrium is significantly enlarged. There is severe mitral annular calcification moderate mitral regurgitation aortic valve sclerosis with mild increase in gradient across aortic valve. No significant pulmonary hypertension no pericardial effusion Previewed by: Dr. Scott Sharif MD (Electronically Signed) Final Date: 07 December 2022 11:01
[2022-12-07] MEDS ORDERED: hydrALAZINE HCL 20 MG/ML 1 ML VIAL IVP STA (11:11)
--- NOTE | 2022-12-07 12:27 | P.DS ---
Providers Date of admission: 12/06/22 07:48 Expected date of discharge: 12/07/22 Attending physician: Aquiles Simons Consults: 12/06/22 08:00 Consult to Anesthesia Routine Consulting Provider: Anesthesia,Services Consult Reason/Comments: Cardiac Surgery Pre-Op 12/06/22 12:02 Consult Physician Routine Consulting Provider: Miguelito Thompson Consult Reason/Comments: post TAVR Do you want consulting provider notified?: Already Contacted Primary care physician: Frank Hough MD Hospital Course: MEDICAL HISTORY: 1. Calcified aortic valve with severe symptomatic aortic valve stenosis, NYHA class II 2. Coronary artery disease 3. Mitral stenosis 4. Peripheral arterial disease, status post stenting to the brachiocephalic artery 5. Hypertension 6. Hyperlipidemia, treated 7. Paroxysmal atrial fibrillation, [facility] outpatient for anticoagulation, status post cardioversion and ablation in 2021 8. CVA in July 2022 9. Hypothyroidism 10. Rheumatoid arthritis 11. Previous tobacco dependence PROCEDURE: 1. Percutaneous aortic valve implantation using a 26 mm Rowell Syed under MIGUEL and fluoroscopy guidance 2. Transesophageal echocardiography performed by anesthesia 3. Ultrasound-guided access and repair of left femoral artery access site by Perclose closure device 4. Placement of temporary pacemaker wire 5. Aortic root angiography 6. Intravascular ultrasound of the left iliac artery HISTORY OF PRESENT ILLNESS: This is a 77-year-old female who follows on an outpatient basis with Dr. Hough for primary care and Dr. Muniz for car diology. She has a known history of severe aortic stenosis and has been symptomatic with increased exertional dyspnea as well as fatigue and some chest pain at night. She had been referred to structural heart clinic for evaluation for transcatheter aortic valve replacement after heart catheterization and transesophageal echocardiogram were completed. Echocardiography demonstrated normal systolic function with EF 55%, aortic valve area 0.7 cm with a peak/mean gradient 67/38 mmHg. Heart catheterization showed normal coronaries. After workup was completed STS risk score was calculated along with incremental risk and the patient was felt to be high risk for surgical aortic valve replacement, therefore transcatheter aortic valve replacement was recommended. The usual course of TAVR was discussed in detail the patient, risks and benefits were reviewed, shared decision making between cardiology, surgery, and the patient/family took place, and the patient consented to proceed with the p rocedure. HOSPITAL COURSE: The patient was brought to the hospital on 12/06/22, was taken to the extended stay area, prepared in the usual fashion, and subsequently taken to the cardiac catheterization laboratory where Dr. Simons and Dr. Thompson completed TAVR procedure under general anesthesia with fluoroscopy and MIGUEL. The valve was deployed under rapid ventricular pacing and proceeded without event. At the end of the procedure there was being gradient 9.5 mmHg, hemodynamics were felt to be acceptable, and there was no evidence of significant perivalvular leak. Upon completion of the procedure the patient was extubated and was transferred to the cardiovascular intensive care unit where she was recovered and monitored hemodynamically. Her oxygen was titrated down, she was tolerating oral diet, hier pain was controlled, follow-up TTE demonstrated normal left ventricular systolic function, normally functioning bioprosthetic aortic valve with peak/mean gradient 21/13 mmHg, and trace aortic regurgitation, and she was ready to be discharged to home on postoperative day #1. She received written and verbal instruction regarding her medications, activity restrictions, signs and symptoms requiring physician notification, and follow-up appointments. Patient Condition at Discharge: Stable Plan - Discharge Summary Discharge Rx Participant: No New Discharge Prescriptions: New Acetaminophen Tab [Tylenol] 650 mg PO Q4HR PRN tab PRN Reason: Fever And/ Or Mild Pain (1-3) Sennosides-Docusate Sodium [Senokot-S] 2 each PO HS PRN tab PRN Reason: Constipation Continue Apixaban [Eliquis] 5 mg PO BID #90 tab Metoprolol Succinate (ER) [Toprol XL] 25 mg PO DAILY #30 tab.er.24h DULoxetine HCL [Cymbalta] 20 mg PO DAILY Flecainide [Tambocor] 50 mg PO Q12H Pravastatin Sodium 80 mg PO HS Cequa 0.09% Eye Drop 1 drop BOTH EYES BID Levothyroxine Sodium [Synthroid] 50 mcg PO DAILY Citalopram Hydrobromide [CeleXA] 10 mg PO DAILY Furosemide [Lasix] 20 mg PO BID Oxybutynin Xl [Ditropan XL] 5 mg PO BID Hydroxychloroquine Sulfate [Plaquenil] 200 mg PO DAILY Discontinued Aspirin 81 mg PO ONCE Discharge Medication List Apixaban [Eliquis] 5 mg PO BID #90 tab 09/04/17 [Rx] Metoprolol Succinate (ER) [Toprol XL] 25 mg PO DAILY #30 tab.er.24h 03/27/18 [Rx] Citalopram Hydrobromide [CeleXA] 10 mg PO DAILY 07/05/21 [History] DULoxetine HCL [Cymbalta] 20 mg PO DAILY 07/05/21 [History] Flecainide [Tambocor] 50 mg PO Q12H 07/05/21 [History] Furosemide [Lasix] 20 mg PO BID 07/05/21 [History] Pravastatin Sodium 80 mg PO HS 07/05/21 [History] Cequa 0.09% Eye Drop 1 drop BOTH EYES BID 08/04/22 [History] Hydroxychloroquine Sulfate [Plaquenil] 200 mg PO DAILY 08/04/22 [History] Oxybutynin Xl [Ditropan XL] 5 mg PO BID 08/04/22 [History] Levothyroxine Sodium [Synthroid] 50 mcg PO DAILY 10/16/22 [History] Acetaminophen Tab [Tylenol] 650 mg PO Q4HR PRN tab 12/07/22 [Rx] Sennosides-Docusate Sodium [Senokot-S] 2 each PO HS PRN tab 12/07/22 [Rx] Follow up Appointment(s)/Referral(s): Aniket Muniz MD [STAFF PHYSICIAN] - 1 Week (The cardiology office will call with an appointment next week for a groin check. You also have a 30 day post TA VR echo and appointment with Dr. Muniz 01/31/23 @ 7:15 am, as well as a 1 year post TAVR echo and appointment with Dr. Muniz 11/23/23 @ 9:45 am) Frank Hough MD [Primary Care Provider] - As Needed Clinic,Structural Heart [NON-STAFF] - 01/31/23 8:00 am (Come to the valve clinic 01/31/23 @ 8 am after your appointment with Dr. Muniz for 30 day follow up. You also have a valve clinic appointment 11/23/23 @ 11 am after your [address] Muniz) Ambulatory/Diagnostic Orders: Complete Blood Count w/diff [LAB.AMB] Location: None Selected Complete Blood Count w/diff [LAB.AMB] Location: None Selected Comprehensive Metabolic Panel [LAB.AMB] Location: None Selected Comprehensive Metabolic Panel [LAB.AMB] Location: None Selected Patient Instructions/Handouts: Transcatheter Aortic Valve Replacement (GEN) Activity/Diet/Wound Care/Special Instructions: DISCHARGE INSTRUCTIONS: 1. No driving for 1 week, or until physician gives their ok. 2. No lifting, pushing, or pulling more than 5-10 pounds for 1 week. 3. Hold both groins when you cough or sneeze for the next 2 weeks. Bruising is common, but report increased swelling, pain or fever >101F 4. Shower daily. No pool, hot tub, or bathtub for 1 week 5. No powders, lotions, ointments on incisions. 6. No straining, including for bowel movements. Use stool softner if necessary 7. Stairs are not an issue. Go slowly, using handrail and take 1 step at a time. Ambulate several times daily 8. Continue pain control per as needed orders. 9. Take only the medications listed on your discharge form 10. Eat low salt (limited to 2 grams or 2000 milligrams) daily, avoid adding salt, avoid canned/processed foods 11. Take your weight daily in the morning and record, bring with you to your follow up appointments 12. Keep all follow up appointments. You will need a valve clinic appointment at 30 days and 1 year post procedure for follow up 13. You have been referred to and are expected to begin Cardiac Rehab in approximately 4 weeks. 14. You will need antibiotics prior to any dental work, including cleanings, and any surgeries to prevent Endocarditis (bacterial infection in your heart) For any questions or concerns please call your valve coordinators: Kaelyn or Michael @ Discharge Disposition: HOME SELF-CARE
[2022-12-07 13:39] VITALS: BP 94/43; PULSE 67; RESP 27
[2022-12-07] MEDS ORDERED: SENNOSIDES-DOCUSATE SODIUM 1 EACH TAB PO SCH (21:00)
== END 2022-12-07 14:37 | disposition home or self-care (01) | DRG 267 ==
LOC: 2ORMAIN 07:48 → 2SICU 11:49
PROVIDERS: ADMIT Internal Medicine Interventional Cardiology; ATTEND Internal Medicine Interventional Cardiology
PROC: 02RF38N Replacement of Aortic Valve with Zooplastic Tissue, using Rapid Deployment Technique, Percutaneous Approach (ICD-10-PCS; principal; 2022-12-07)
PROC: 047D3ZZ Dilation of Left Common Iliac Artery, Percutaneous Approach (ICD-10-PCS; 2022-12-07)
PROC: 5A1223Z Performance of Cardiac Pacing, Continuous (ICD-10-PCS; 2022-12-07)
PROC: B3101ZZ Fluoroscopy of Thoracic Aorta using Low Osmolar Contrast (ICD-10-PCS; 2022-12-07)
PROC: 02HK3JZ Insertion of Pacemaker Lead into Right Ventricle, Percutaneous Approach (ICD-10-PCS; 2022-12-07)
PROC: B246ZZ4 Ultrasonography of Right and Left Heart, Transesophageal (ICD-10-PCS; 2022-12-07)
PROC: 30233N1 Transfusion of Nonautologous Red Blood Cells into Peripheral Vein, Percutaneous Approach (ICD-10-PCS; 2022-12-07)
DX: I35.0 Nonrheumatic aortic (valve) stenosis (principal); Z00.6 Encounter for examination for normal comparison and control in clinical research program; E03.9 Hypothyroidism, unspecified; Z79.890 Hormone replacement therapy; I34.2 Nonrheumatic mitral (valve) stenosis; I70.8 Atherosclerosis of other arteries; M06.9 Rheumatoid arthritis, unspecified; I10 Essential (primary) hypertension; I34.81 Nonrheumatic mitral (valve) annulus calcification; F17.210 Nicotine dependence, cigarettes, uncomplicated; I73.9 Peripheral vascular disease, unspecified; I08.1 Rheumatic disorders of both mitral and tricuspid valves; E78.5 Hyperlipidemia, unspecified; I25.10 Atherosclerotic heart disease of native coronary artery without angina pectoris; I48.0 Paroxysmal atrial fibrillation; Z79.01 Long term (current) use of anticoagulants; Z86.73 Personal history of transient ischemic attack (TIA), and cerebral infarction without residual deficits; Z91.048 Other nonmedicinal substance allergy status
CPT/HCPCS: 33210; 33361; 71045; 80053; 82330; 83735; 85025; 85610; 85730; 86850; 86900; 86901; 93306; 93312; 93320; 93325

== ENCOUNTER → 2023-01-19 | Day surgery (SDC) | payer MEDICARE ==
[~2023-01-19] MED LIST changes: -ALPRAZolam 0.25 MG TAB PO PRN; -ALPRAZolam 0.5 MG TAB PO PRN; -ASPIRIN 325 MG TAB PO ONE; -ATORVASTATIN 80 MG TAB PO ONE; -HEPARIN SODIUM,PORCINE 10,000 UNIT in SODIUM CHLORIDE 0.9% 1,000 ML IRRIGATION PRN; -HEPARIN SODIUM,PORCINE 2,500 UNIT in SODIUM CHLORIDE 0.9% 250 ML IRRIGATION PRN; +LIDOCAINE 1% INJ 10MG/ML (20 ML MDV) SQ ONE; -NITROGLYCERIN SL TABS 0.4 MG TAB SUBLINGUAL PRN; +SODIUM CHLORIDE 0.9% 1,000 ML IV SCH; -SODIUM CHLORIDE 0.9% 1,000 ML in EMPTY BAG 1 BAG IV SCH
[2023-01-19 09:38] VITALS: BP 164/68; PULSE 66; RESP 16; TEMP 97.8
--- NOTE | 2023-01-19 10:42 | P.EPPROC ---
- EP Procedure Note Electrophysiology Procedure Note: Loop monitor implant Primary physicians: Frank Judd Developer Designer: Dr. Muniz Indication: New onset left bundle branch block following TAVR Patient was brought to the EP lab in a fasting state. Written informed consent was obtained prior to the procedure. The left pectoral area was prepped and draped per protocol. Intravenous antibiotic was administered preoperatively. A subcutaneous Loop monitor was implanted successfully and the wound was closed per protocol. The device was programmed to detect significant jose alejandro- arrhythmic and tachy-arrhythmic events, per protocol. Device and programming details: Bradycardia detection protocol Patient underwent EP procedure under conscious sedation/moderate sedation, monitoring of the level of consciousness and physiologic parameters including but not limited to vital signs and oxygenation. Patient tolerated the procedure well without any acute complications. Start time: 1024 Stop time: 1034
--- NOTE | 2023-01-19 10:45 | P.PRLE ---
RE: Alejandra Ram Dear Frank Roberts has undergone TAVR. Following that she has developed new onset of left bundle branch block. There is a greater than 20% risk of AV block following TAVR and the risk is heightened with development of a new onset left bundle branch block. Her MT interval is the upper limits of normal at this time. I implanted a loop monitor today to detect early evidence for advanced AV block. Thank you for entrusting me with the care of the patient Warm regards Sincerely Aniket Muniz
== END | disposition home or self-care (01) ==
LOC: CATHEP 09:05
PROVIDERS: ATTEND Internal Medicine Clinical Cardiac Electrophysiology
DX: I44.7 Left bundle-branch block, unspecified (principal); I48.0 Paroxysmal atrial fibrillation; I35.0 Nonrheumatic aortic (valve) stenosis; I10 Essential (primary) hypertension; F17.210 Nicotine dependence, cigarettes, uncomplicated; Z79.899 Other long term (current) drug therapy
CPT/HCPCS: 33285; C1764; J2001

== ENCOUNTER → 2023-07-14 | Outpatient (CLI) | payer MEDICARE ==
--- NOTE | 2023-07-16 12:25 | MR ---
EXAMINATION TYPE: MR brain wo/w con DATE OF EXAM: 07/14/2023 11:21 AM COMPARISON: 03-27 and 08/07/2022 HISTORY: Multiple falls and hit head, dizziness CONTRAST: Patient received 7 mL intravenous Gadavist gadolinium contrast. Multiplanar and multispin-echo imaging of the brain was performed . Pre and post contrast enhanced i mages are obtained. The ventricles, basal cisterns and sulci overlying the cerebral convexities are mildly enlarged. There is evidence of mild to moderate periventricular white matter ischemic demyelination. Remote deep white matter insults are also noted. No acute edema is seen on diffusion weighted imaging. There is no evidence for midline shift or mass effect. Acute intracranial hemorrhage or extra-axial collection is not evident. No enhancing lesions are seen. The paranasal sinuses and mastoid air cells are well-aerated. IMPRESSION: Age-related atrophic and chronic small vessel ischemic change. No acute intracranial process at this time. No enhancing lesions are seen.
== END | disposition home or self-care (01) ==
LOC: RADMRIMAIN 10:10
PROVIDERS: ATTEND Family Medicine
DX: I67.82 Cerebral ischemia (principal); R42 Dizziness and giddiness; W10.8XXA Fall (on) (from) other stairs and steps, initial encounter
CPT/HCPCS: 70553; A9585